=== PATIENT | male | born 1960 | race Caucasian/White ===

== ENCOUNTER 2019-05-22 16:09 | Inpatient (IN) | payer SELFPAY ==
[~2019-05-22] VITALS: Ht 185.4 cm; Wt 106.6 kg
[~2019-05-22 16:09] MED LIST: ASPI81TA59 PO; ATOR40TA59 PO; CLOP75TA PO; INSU100I27 SQ; METF500T16 PO
[2019-05-22] MEDS ORDERED: IV NORMAL SALINE 1000ML BAG 1,000 ML IV ONE (17:00)
[2019-05-22] MEDS ORDERED: VANCOMYCIN 1GM IVPB FOR OMNI 250 ML IV ONE (17:00)
[2019-05-22] MEDS ORDERED: ONDANSETRON PF 4 MG/2 ML VIAL. IV ONE (17:00)
--- NOTE | 2019-05-22 17:12 | PHYS DOC ---
Past Medical History Past Medical History: CAD, Diabetes-Type II Past Surgical History: Other Additional Past Surgical Histo: LEFT LEG SURGERY Alcohol Use: None Drug Use: None Adult General Chief Complaint Chief Complaint: diabetic leg HPI HPI Patient is a 59 year old male with history of diabetes mellitus who presents with complaining of left leg swelling and redness. Patient states he has had chronic left leg ulcer for several months that getting worse for the last 3-4 days and for the last 24 hours has large erythema and edema without fever and chills, pain, weakness. Patient states he had episode of nausea and vomiting started 4 days ago and felt better with Zofran given by his primary care physician with history of his nauseous. Patient denies chest pain, diarrhea and constipation, urinary symptom, shortness of breath. Review of Systems Review of Systems Constitutional: Denies fever or chills [] Eyes: Denies change in visual acuity, redness, or eye pain [] HENT: Denies nasal congestion or sore throat [] Respiratory: Denies cough or shortness of breath [] Cardiovascular: No additional information not addressed in HPI [] GI: Denies abdominal pain, bloody stools or diarrhea, reports nausea and vomiting [] : Denies dysuria or hematuria [] Musculoskeletal: Denies back pain or joint pain [] Integument: Denies rash , reports skin lesions [] Neurologic: Denies headache, focal weakness or sensory changes [] Endocrine: Denies polyuria or polydipsia [] All other systems were reviewed and found to be within normal limits, except as documented in this note. Allergies Allergies Allergies Coded Allergies Type Severity Reaction Last Updated Verified No Known Drug Allergies 05/03/16 No Physical Exam Physical Exam Constitutional: Well developed, well nourished, mild distress, non-toxic appearance. [] HENT: Normocephalic, atraumatic. Eyes: PERRLA, EOMI, conjunctiva normal, no discharge. [] Neck: Normal range of motion, no tenderness, supple, no stridor. [] Cardiovascular:Heart rate regular rhythm, no murmur [] Lungs & Thorax: Bilateral breath sounds clear to auscultation [] Abdomen: Bowel sounds normal, soft, no tenderness, no masses, no pulsatile masses. [] Skin: Warm, dry, no erythema, no rash. [] Back: No tenderness, no CVA tenderness. [] Extremities: Left lower extremity with 3+ edema from toes to mid leg and erythema with old ulcer in medial side of the great toe without abscess or drainage of pus. Neurologic: Alert and oriented X 3, no focal deficits noted. [] Psychologic: Affect normal, judgement normal, mood normal. [] Current Patient Data Vital Signs Vital Signs Date Time Temp Pulse Resp B/P (MAP) Pulse Ox O2 Delivery O2 Flow Rate FiO2 05/22/19 16:40 98.0 77 18 134/69 (90) 94 Room Air 98.0 EKG EKG [] Radiology/Procedures Radiology/Procedures [][facility] [address] [place] [address] IMAGING REPORT Signed PATIENT: JAKOB PIZANO AACCOUNT: [id number] : 1960 LOCATION: [address] [place] [address] AGE: 59 SEX: M EXAM STATUS: ADM IN ORD. PHYSICIAN: CECY GUO MD REASON: diabetes ULCER AND EDEMA PROCEDURE: VENOUS LOWER EXTREMITY LEFT STUDY: VENOUS LOWER EXTREMITY LEFT INDICATION: Diabetic ulcer. Lower extremity edema. TECHNIQUE: Color-flow and pulsed wave duplex ultrasound with compression of venous structures of the left lower extremity. COMPARISON: None Available. FINDINGS: Duplex ultrasound with compression of the deep venous structures of the left lower extremity from the common femoral vein through the popliteal vein is negative for DVT. The major calf veins are segmentally visualized and patent where seen. Normal venous waveforms and augmentation are noted throughout. Lower leg subcutaneous edema. Left groin lymph node which maintains a fatty hilum and is likely reactive. This node measures up to 1.3 cm in short axis dimension. IMPRESSION: 1. No left lower extremity deep venous thrombosis. 2. Lower leg subcutaneous edema. Electronically signed by: LILIAN GEORGE MD (05/22/2019 5:41 PM) [facility] DICTATED and SIGNED BY: LILIAN GEORGE MD DATE: 05/22/19 1745 Course & Med Decision Making Course & Med Decision Making Pertinent Labs and Imaging studies reviewed. (See chart for details) Patient requiring admission for further evaluation and treatment. Discussed with Dr. Jon who is in agreement with admission. Discussed findings and plan with patient and family, who acknowledge understanding and agreement. Dragon Disclaimer Dragon Disclaimer This electronic medical record was generated, in whole or in part, using a voice recognition dictation system. Departure Departure Impression: Primary Impression: Left leg cellulitis Additional Impressions: Diabetic foot ulcer Nausea and vomiting Uncontrolled diabetes mellitus Hypokalemia Disposition: 09 ADMITTED INPATIENT Admitting Physician: TORI (Dr Jon accepted admission at 1706) Condition: IMPROVED Referrals: UNKNOWN PCP NAME (PCP) Problem Qualifiers Additional Impressions: Diabetic foot ulcer Diabetic foot ulcer location: unspecified part of foot Diabetes mellitus t ype: type 2 Laterality: left Non-pressure ulcer stage: unspecified non- pressure ulcer stage Qualified Codes: E11.621 - Type 2 diabetes mellitus with foot ulcer; L97.529 - Non-pressure chronic ulcer of other part of left foot with unspecified severity Nausea and vomiting Vomiting type: unspecified Vomiting Intractability: non-intractable Qualified Codes: R11.2 - Nausea with vomiting, unspecified Uncontrolled diabetes mellitus Diabetes mellitus type: other specified (including LUIS) Glycemic state: with hyperglycemia Qualified Codes: E13.65 - Other specified diabetes mellitus with hyperglycemia CECY GUO MD May 22, 2019 17:12
[2019-05-22] MEDS ORDERED: VANCOMYCIN 2 GM in IV NORMAL SALINE 500ML BAG 500 ML IV ONE (17:15)
[2019-05-22 17:28] LABS: BASO # 0.1 x10^3/uL (0.0-0.2); BASO % 1 % (0-3); EOS # 0.3 x10^3/uL (0.0-0.7); EOS % 2 % (0-3); HEMATOCRIT 42.5 % (39.0-53.0); HEMOGLOBIN 15.3 g/dL (13.0-17.5); LYMPH # 2.5 x10^3/uL (1.0-4.8); LYMPH % 22 % (24-48); MEAN CORPUSCULAR HEMOGLOBIN 31 pg (25-35); MEAN CORPUSCULAR HGB CONC 36 g/dL (31-37); MEAN CORPUSCULAR VOLUME 86 fL (79-100); MONO # 1.5 x10^3/uL (0.0-1.1); MONO % 14 % (0-9); NEUT % 61 % (31-73); PLATELET COUNT 159 x10^3/uL (140-400); RED BLOOD COUNT 4.94 x10^6/uL (4.30-5.70); RED CELL DISTRIBUTION WIDTH 15.1 % (11.5-14.5); WHITE BLOOD COUNT 11.4 x10^3/uL (4.0-11.0)
[2019-05-22 17:35] LABS: CALCIUM 9.4 mg/dL (8.5-10.1); CREATININE 1.3 mg/dL (0.7-1.3); GFR 56.3; POTASSIUM 3.4 mmol/L (3.5-5.1)
[2019-05-22 17:40] LABS: ALBUMIN 3.4 g/dL (3.4-5.0); ALBUMIN/GLOBULIN RATIO 0.7 (1.0-1.7)
--- NOTE | 2019-05-22 17:43 | RAD ---
STUDY: VENOUS LOWER EXTREMITY LEFT INDICATION: Diabetic ulcer. Lower extremity edema. TECHNIQUE: Color-flow and pulsed wave duplex ultrasound with compression of venous structures of the left lower extremity. COMPARISON: None Available. FINDINGS: Duplex ultrasound with compression of the deep venous structures of the left lower extremity from the common femoral vein through the popliteal vein is negative for DVT. The major calf veins are segmentally visualized and patent where seen. Normal venous waveforms and augmentation are noted throughout. Lower leg subcutaneous edema. Left groin lymph node which maintains a fatty hilum and is likely reactive. This node measures up to 1.3 cm in short axis dimension. IMPRESSION: 1. No left lower extremity deep venous thrombosis. 2. Lower leg subcutaneous edema. Electronically signed by: LILIAN GEORGE MD (05/22/2019 5:41 PM) [facility]
[2019-05-22 19:22] LABS: BILIRUBIN,URINE NEGATIVE (NEG); CLARITY,URINE CLOUDY; COLOR,URINE YELLOW; NITRITE,URINE NEGATIVE (NEG); PROTEIN,URINE NEGATIVE (NEG-TRACE)
[2019-05-22 19:29] LABS: BACTERIA,URINE 0 /HPF (0-FEW); SQUAMOUS EPITHELIAL CELL,UR FEW /LPF; WBC,URINE RARE /HPF (0-4)
[2019-05-22 19:31] VITALS: BP 120/68
--- NOTE | 2019-05-22 19:31 | RAD ---
Study: FOOT LEFT 3V Indication: Diabetic ulcer. Comparison: None. Findings: Edematous soft tissues throughout the foot which is most notable along the great toe MTP joint. There appears to be shallow ulceration at the medial/plantar aspect of the great toe MTP joint. This would be better assessed clinically. No radiographic findings to suggest superimposed osteomyelitis. Multifocal degenerative changes to include hallux valgus alignment and prominent spurring at the plantar calcaneus. Mineralization in the region of the proximal plantar fascia as well as along the course of the distal Achilles tendon. Probable sequela of remote trauma at the medial malleolus. No acute fracture. Impression: Edematous changes of the soft tissues throughout the foot most notable along the great toe MTP joint where there appears to be a superimposed ulcer. No radiographic manifestations of osteomyelitis however radiographs aren't sensitive to this pathology. If there is ongoing concern, eventual MRI is recommended. Electronically signed by: LILIAN GEORGE MD (05/22/2019 7:28 PM) [facility]
[2019-05-22] MEDS ORDERED: DEXTROSE 50% 25 GM / 50ML DISP.SYRIN. IV PRN (19:45)
[2019-05-22] MEDS ORDERED: IV DEXTROSE 5% 250 ML BAG. IV PRN (19:45)
--- NOTE | 2019-05-22 20:02 | PDOC1 ---
History and Physical Date of Admission Date of Admission DATE: 05/22/19 TIME: 19:43 Identification/Chief Complaint Chief Complaint left foot ulcer Source Source: Patient History of Present Illness History of Present Illness Mr Echavarria is a 59yo M w/ PMHx HTN, CAD (s/p COLE to RCA in 2016), Diabetes-Type II, smoker who presents with complaining of left leg swelling and redness. Patient states he has had chronic left leg ulcer for several months that has been getting regular care at the [facility], but suddenly began getting worse for the last 3-4 days and for the last 24 hours has large erythema and edema with fever and chills, pain, weakness. Patient states he had episode of nausea and vomiting started 4 days ago and felt better with Zofran given by his primary care physician previously. Patient denies chest pain, diarrhea and constipation, urinary symptom, shortness of breath. He had venous doppler negative for DVT and Xray that does not show osteomyelitis, WBC elevated at 11.4. Cr 1.3, potassium 3.4. Past Medical History Cardiovascular: CAD, HTN, Hyperlipidemia Pulmonary: No pertinent hx GI: No pertinent hx Heme/Onc: No pertinent hx Hepatobiliary: No pertinent hx Psych: No pertinent hx Rheumatologic: No pertinent hx Infectious disease: No pertinent hx ENT: No pertinent hx Renal/: No pertinent hx Endocrine: Diabetes Dermatology: No pertinent hx Past Surgical History Past Surgical History: No pertinent history Family History Family History: Diabetes Social History Smoke: <1 pack per day ALCOHOL: none Drugs: None Current Problem List Problem List Problems Medical Problems: (1) Diabetic foot ulcer Status: Acute (2) Hypokalemia Status: Acute (3) Left leg cellulitis Status: Acute (4) Nausea and vomiting Status: Acute (5) Uncontrolled diabetes mellitus Status: Acute Current Medications Current Medications Current Medications Sodium Chloride 1,000 ml @ 1,000 mls/hr 1X ONCE IV Last administered on 05/22/19at 17:18; Start 05/22/19 at 17:00; Stop 05/22/19 at 17:59; Status DC Ondansetron HCl (Zofran) 4 mg 1X ONCE IV Last administered on 05/22/19at 17:18; Start 05/22/19 at 17:00; Stop 05/22/19 at 17:07; Status DC Cefazolin Sodium 50 ml @ 100 mls/hr 1X ONCE IV Last administered on 05/22/19at 17:57; Start 05/22/19 at 17:00; Stop 05/22/19 at 17:29; Status DC Vancomycin HCl 250 ml @ 250 mls/hr 1X ONCE IV ; Start 05/22/19 at 17:00; Stop 05/22/19 at 17:59; Status UNV Vancomycin HCl 2 gm/Sodium Chloride 500 ml @ 250 mls/hr 1X ONCE IV Last administered on 05/22/19at 18:32; Start 05/22/19 at 17:15; Stop 05/22/19 at 19:14; Status DC Active Scripts Active Metformin Hcl 500 Mg Tablet 500 Mg PO BIDWMEALS Levemir Flextouch (Insulin Detemir) 100 Unit/1 Ml Insuln.pen 15 Units SQ QHS Clopidogrel (Clopidogrel Bisulfate) 75 Mg Tablet 75 Mg PO DAILYWBKFT Children's Aspirin (Aspirin) 81 Mg Tab.chew 81 Mg PO DAILYWBKFT Atorvastatin Calcium 40 Mg Tablet 40 Mg PO QHS Allergies Allergies: Coded Allergies: No Known Drug Allergies (Unverified , 05/03/16) ROS General: YES: Chills, Night Sweats, Fatigue, Malaise PSYCHOLOGICAL ROS: No: Anxiety, Behavioral Disorder, Concentration difficultie, Decreased libido, Depression, Disorientation, Hallucinations, Hostility, Irritablity, Memory difficulties, Mood Swings, Obsessive thoughts, Physical abuse, Sexual abuse, Sleep disturbances, Suicidal ideation, Other Eyes: No Blurry vision, No Decreased vision, No Double vision, No Dry eyes, No Excessive tearing, No Eye Pain, No Itchy Eyes, No Loss of vision, No Photophobia, No Scotomata, No Uses contacts, No Uses glasses, No Other HEENT: No: Heacaches, Visual Changes, Hearing change, Nasal congestion, Nasal discharge, Oral lesions, Sinus pain, Sore Throat, Epistaxis, Sneezing, Snoring, Tinnitus, Vertigo, Vocal changes, Other ALLERGY AND IMMUNOLOGY: No: Hives, Insect Bite Sensitivity, Itchy/Watery Eyes, Nasal Congestion, Post Nasal Drip, Seasonal Allergies, Other Hematological and Lymphatic: No: Bleeding Problems, Blood Clots, Blood Transfusions, Brusing, Night Sweats, Pallor, Swollen Lymph Nodes, Other ENDOCRINE: No: Breast Changes, Galactorrhea, Hair Pattern Changes, Hot Flashes, Malaise/lethargy, Mood Swings, Palpitations, Polydipsia/polyuria, Skin Changes, Temperature Intolerance, Unexpected Weight Changes, Other Breast: No New/Changing Breast Lumps, No Nipple changes, No Nipple discharge, No Other Respiratory: No: Cough, Hemoptysis, Orthopnea, Pleuritic Pain, Shortness of breath, SOB with excertion, Sputum Changes, Stridor, Tachypnea, Wheezing, Other Cardiovascular: No Chest Pain, No Palpitations, No Orthopnea, No Paroxysmal Noc. Dyspnea, No Edema, No Lt Headedness, No Other Gastrointestinal: Yes Nausea, Yes Vomiting; No Abdominal Pain, No Diarrhea, No Constipation, No Melena, No Hematochezia, No Other Genitourinary: No Dysuria, No Frequency, No Incontinence, No Hematuria, No Retention, No Discharge, No Urgency, No Pain, No Flank Pain, No Other, No , No , No , No , No , No , No Musculoskeletal: Yes Joint Swelling; No Gait Disturbance, No Joint Pain, No Joint Stiffness, No Muscle Pain, No Muscular Weakness, No Pain In:, No Swelling In:, No Other Neurological: Yes Gait Disturbance; No Behavorial Changes, No Bowel/Bladder ControlChng, No Confusion, No Di zziness, No Headaches, No Impaired Coord/balance, No Memory Loss, No Numbness/Tingling, No Seizures, No Speech Problems, No Tremors, No Visual Changes, No Weakness, No Other Skin: Yes Skin Lesion Changes; No Dry Skin, No Eczema, No Hair Changes, No Lumps, No Mole Changes, No Mottling, No Nail Changes, No Pruritus, No Rash, No Other, No Acne Physical Exam General: Alert, Oriented X3, Cooperative, No acute distress HEENT: Atraumatic, PERRLA, EOMI, Mucous membr. moist/pink Lungs: Clear to auscultation, Normal air movement Heart: S1S2, RRR, no gallops, no murmurs Abdomen: Normal bowel sounds, Soft, No tenderness, No hepatosplenomegaly, No masses Rectal Exam: not examined Extremities: No clubbing, No cyanosis, Other (LLE edema and warm, red up to mid calf. Ulcer on plantar surfarce at 1st MTP joint 2cm and medial ulcer with small fluctuance 2x3cm with blistering) Skin: Other (As above) Vitals Vitals Vital Signs Date Time Temp Pulse Resp B/P (MAP) Pulse Ox O2 Delivery O2 Flow Rate FiO2 05/22/19 19:15 68 18 102/58 (73) 96 Room Air 05/22/19 16:40 98.0 98.0 Labs Labs Laboratory Tests Test 05/22/19 17:07 05/22/19 19:15 White Blood Count 11.4 x10^3/uL (4.0-11.0) Red Blood Count 4.94 x10^6/uL (4.30-5.70) Hemoglobin 15.3 g/dL (13.0-17.5) Hematocrit 42.5 % (39.0-53.0) Mean Corpuscular Volume 86 fL (79-100) Mean Corpuscular Hemoglobin 31 pg (25-35) Mean Corpuscular Hemoglobin Concent 36 g/dL (31-37) Red Cell Distribution Width 15.1 % (11.5-14.5) Platelet Count 159 x10^3/uL (140-400) Neutrophils (%) (Auto) 61 % (31-73) Lymphocytes (%) (Auto) 22 % (24-48) Monocytes (%) (Auto) 14 % (0-9) Eosinophils (%) (Auto) 2 % (0-3) Basophils (%) (Auto) 1 % (0-3) Neutrophils # (Auto) 7.0 x10^3/uL (1.8-7.7) Lymphocytes # (Auto) 2.5 x10^3/uL (1.0-4.8) Monocytes # (Auto) 1.5 x10^3/uL (0.0-1.1) Eosinophils # (Auto) 0.3 x10^3/uL (0.0-0.7) Basophils # (Auto) 0.1 x10^3/uL (0.0-0.2) Sodium Level 137 mmol/L (136-145) Potassium Level 3.4 mmol/L (3.5-5.1) Chloride Level 99 mmol/L (98-107) Carbon Dioxide Level 27 mmol/L (21-32) Anion Gap 11 (6-14) Blood Urea Nitrogen 26 mg/dL (8-26) Creatinine 1.3 mg/dL (0.7-1.3) Estimated GFR (Cockcroft-Gault) 56.3 BUN/Creatinine Ratio 20 (6-20) Glucose Level 240 mg/dL (70-99) Lactic Acid Level 1.7 mmol/L (0.4-2.0) Calcium Level 9.4 mg/dL (8.5-10.1) Total Bilirubin 1.0 mg/dL (0.2-1.0) Aspartate Amino Transf (AST/SGOT) 30 U/L (15-37) Alanine Aminotransferase (ALT/SGPT) 30 U/L (16-63) Alkaline Phosphatase 86 U/L (46-116) Troponin I Quantitative < 0.017 ng/mL (0.000-0.055) Total Protein 8.0 g/dL (6.4-8.2) Albumin 3.4 g/dL (3.4-5.0) Albumin/Globulin Ratio 0.7 (1.0-1.7) Lipase 57 U/L (73-393) Urine Collection Type Unknown Urine Color Yellow Urine Clarity Cloudy Urine pH 6.0 Urine Specific [place] >=1.030 Urine Protein Negative mg/dL (NEG-TRACE) Urine Glucose (UA) >=1000 mg/dL (NEG) Urine Ketones (Stick) Negative mg/dL (NEG) Urine Blood Trace (NEG) Urine Nitrite Negative (NEG) Urine Bilirubin Negative (NEG) Urine Urobilinogen Dipstick 1.0 mg/dL (0.2 mg/dL) Urine Leukocyte Esterase Negative (NEG) Urine RBC 3-5 /HPF (0-2) Urine WBC Rare /HPF (0-4) Urine Squamous Epithelial Cells Few /LPF Urine Bacteria 0 /HPF (0-FEW) Laboratory Tests Test 05/22/19 17:07 05/22/19 19:15 White Blood Count 11.4 x10^3/uL (4.0-11.0) Red Blood Count 4.94 x10^6/uL (4.30-5.70) Hemoglobin 15.3 g/dL (13.0-17.5) Hematocrit 42.5 % (39.0-53.0) Mean Corpuscular Volume 86 fL (79-100) Mean Corpuscular Hemoglobin 31 pg (25-35) Mean Corpuscular Hemoglobin Concent 36 g/dL (31-37) Red Cell Distribution Width 15.1 % (11.5-14.5) Platelet Count 159 x10^3/uL (140-400) Neutrophils (%) (Auto) 61 % (31-73) Lymphocytes (%) (Auto) 22 % (24-48) Monocytes (%) (Auto) 14 % (0-9) Eosinophils (%) (Auto) 2 % (0-3) Basophils (%) (Auto) 1 % (0-3) Neutrophils # (Auto) 7.0 x10^3/uL (1.8-7.7) Lymphocytes # (Auto) 2.5 x10^3/uL (1.0-4.8) Monocytes # (Auto) 1.5 x10^3/uL (0.0-1.1) Eosinophils # (Auto) 0.3 x10^3/uL (0.0-0.7) Basophils # (Auto) 0.1 x10^3/uL (0.0-0.2) Sodium Level 137 mmol/L (136-145) Potassium Level 3.4 mmol/L (3.5-5.1) Chloride Level 99 mmol/L (98-107) Carbon Dioxide Level 27 mmol/L (21-32) Anion Gap 11 (6-14) Blood Urea Nitrogen 26 mg/dL (8-26) Creatinine 1.3 mg/dL (0.7-1.3) Estimated GFR (Cockcroft-Gault) 56.3 BUN/Creatinine Ratio 20 (6-20) Glucose Level 240 mg/dL (70-99) Lactic Acid Level 1.7 mmol/L (0.4-2.0) Calcium Level 9.4 mg/dL (8.5-10.1) Total Bilirubin 1.0 mg/dL (0.2-1.0) Aspartate Amino Transf (AST/SGOT) 30 U/L (15-37) Alanine Aminotransferase (ALT/SGPT) 30 U/L (16-63) Alkaline Phosphatase 86 U/L (46-116) Troponin I Quantitative < 0.017 ng/mL (0.000-0.055) Total Protein 8.0 g/dL (6.4-8.2) Albumin 3.4 g/dL (3.4-5.0) Albumin/Globulin Ratio 0.7 (1.0-1.7) Lipase 57 U/L (73-393) Urine Collection Type Unknown Urine Color Yellow Urine Clarity Cloudy Urine pH 6.0 Urine Specific [place] >=1.030 Urine Protein Negative mg/dL (NEG-TRACE) Urine Glucose (UA) >=1000 mg/dL (NEG) Urine Ketones (Stick) Negative mg/dL (NEG) Urine Blood Trace (NEG) Urine Nitrite Negative (NEG) Urine Bilirubin Negative (NEG) Urine Urobilinogen Dipstick 1.0 mg/dL (0.2 mg/dL) Urine Leukocyte Esterase Negative (NEG) Urine RBC 3-5 /HPF (0-2) Urine WBC Rare /HPF (0-4) Urine Squamous Epithelial Cells Few /LPF Urine Bacteria 0 /HPF (0-FEW) Images Images Left foot XR - Edematous changes of the soft tissues throughout the foot most notable along the great toe MTP joint where there appears to be a superimposed ulcer. No radiographic manifestations of osteomyelitis however radiographs aren't sensitive to this pathology. If there is ongoing concern, eventual MRI is recommended. LLE Venous doppler - no DVT, 1.3 cm lymph node VTE Prophylaxis Ordered VTE Prophylaxis Devices: Yes VTE Pharmacological Prophylaxi: Yes Assessment/Plan Assessment/Plan A/P: LLE cellulitis and abscess - small abscess, negative for osteomyelitis. Will obtain blood cultures, cont empiric vancomycin and cefazolin. Elevate extremity. Tylenol for fever. Will check arterial flow Left great toe diabetic ulcer - x2, will have wound care to see,. antibiotics as above Hypokalemia - will replace, check mag JERI - likely vasomotor from vomiting episodes, will give IVF hydration HTN - will monitor BP CAD (s/p COLE to RCA in 2016) - stable. Has been on ASA Diabetes-Type II - on metformin, will place on sliding scale basal bolus plus regimen in house Smoker - counseled on cessation FEN - ADA diet PPX - Lovenox FULL CODE Inpatient for cellulitis and abscess with diabetic foot. JAKOB ROJAS MD May 22, 2019 20:02
[2019-05-22] MEDS ORDERED: METF10007 PO (20:04)
[2019-05-22] MEDS ORDERED: INSU100I13 SQ (20:06)
[2019-05-22] MEDS ORDERED: FURO40TA4 PO (20:12)
[2019-05-22] MEDS ORDERED: GABA600T7 PO (20:12)
[2019-05-22] MEDS ORDERED: TADA5TAB PO (20:12)
[2019-05-22] MEDS ORDERED: EMPA10TA PO (20:12)
[2019-05-22] MEDS ORDERED: ONDA4TAB7 PO (20:12)
[2019-05-22] MEDS ORDERED: FAMO20TA5 PO (20:12)
[2019-05-22] MEDS ORDERED: INSULIN GLARGINE SYRINGE. SQ SCH (21:00)
[2019-05-22] MEDS: INSULIN LISPRO 300 UNITS/3 ML VIAL. SQ SCH (21:00)
[2019-05-22] MEDS: VANCOMYCIN PER PHARMACY MC PRN ×2 (21:26→21:29)
--- NOTE | 2019-05-22 21:30 | NUR ---
Pharmacy Vancomycin Dosing Note S:Consulted to monitor and dose vancomycin started 05/22/19. O:JAKOB PIZANO is a 59 year old M with DIABETIC FOOT ULCER . Height: 6 feet, 0 inches Weight: 107.162934 kg [place] Body Weight: 77.60 Adjusted Body Weight: 89.36 Dosing Weight: Actual Other Antibiotics: ANCEF LABS: Last BUN: 26 Last Creatinine: 1.3 Creatinine Clearance: 76 mL/min Last WBC: 11.4 Last Procalcitonin: Tmax (past 24 hours): Microbiology: I/O: Drug Levels: Last level: on at Last dose given at Vancomycin Dosing: Loading Dose: 2000 mg x1 Dosing Weight: Actual Target Trough: 15-20 A: Based on: HT, WT AND RENAL FXN P: 1. Begin Vancomycin 1750 mg IV q18h 2. Follow up Trough level on 05/24/19 at 0630 3. Pharmacy will continue to monitor, follow and adjust therapy as needed. JAMAL RODRIGUEZ, [facility], 05/22/19 0373
[2019-05-22] MEDS: ENOXAPARIN 40 MG/0.4 ML SYRINGE. SQ SCH (21:41)
[2019-05-22] MEDS: ATORVASTATIN CALCIUM 40 MG TABLET. PO SCH (21:42)
[2019-05-22] MEDS: INSULIN GLARGINE SYRINGE. SQ SCH (21:46)
[2019-05-22] MEDS ORDERED: ceFAZolin SODIUM 1 GM in IV DEXTROSE 5% 50 ML IV SCH (22:00)
[2019-05-22 23:00] VITALS: BP 122/62
[2019-05-22] MEDS ORDERED: MORPHINE SULFATE 2 MG/ML VIAL. IV PRN (23:00)
[2019-05-23] MEDS: ceFAZolin SODIUM IV Push 1 GM VIAL. IVP SCH ×4 (00:45→21:29)
[2019-05-23] MEDS: traMADol 50 MG TABLET PO PRN ×2 (02:38→21:48)
[2019-05-23 03:00] VITALS: BP 116/67
[2019-05-23 07:00] VITALS: BP 97/58
[2019-05-23 07:13] LABS: BASO # 0.1 x10^3/uL (0.0-0.2); BASO % 1 % (0-3); EOS # 0.2 x10^3/uL (0.0-0.7); EOS % 2 % (0-3); HEMATOCRIT 39.4 % (39.0-53.0); HEMOGLOBIN 13.9 g/dL (13.0-17.5); LYMPH # 2.6 x10^3/uL (1.0-4.8); LYMPH % 27 % (24-48); MEAN CORPUSCULAR HEMOGLOBIN 31 pg (25-35); MEAN CORPUSCULAR HGB CONC 35 g/dL (31-37); MEAN CORPUSCULAR VOLUME 87 fL (79-100); MONO # 1.3 x10^3/uL (0.0-1.1); MONO % 13 % (0-9); NEUT # 5.7 x10^3/uL (1.8-7.7); NEUT % 58 % (31-73); PLATELET COUNT 154 x10^3/uL (140-400); RED BLOOD COUNT 4.54 x10^6/uL (4.30-5.70); RED CELL DISTRIBUTION WIDTH 14.9 % (11.5-14.5); WHITE BLOOD COUNT 9.8 x10^3/uL (4.0-11.0)
[2019-05-23] MEDS: INSULIN LISPRO 300 UNITS/3 ML VIAL. SQ SCH ×4 (07:30→21:00)
[2019-05-23 07:31] LABS: CALCIUM 8.6 mg/dL (8.5-10.1); CREATININE 0.9 mg/dL (0.7-1.3); GFR 86.1; POTASSIUM 3.2 mmol/L (3.5-5.1)
--- NOTE | 2019-05-23 10:34 | PDOC ---
PROGRESS NOTES History of Present Illness History of Present Illness Assessment/Plan Assessment/Plan A/P: LLE cellulitis and abscess - small abscess, negative for osteomyelitis. Will obtain blood cultures, cont empiric vancomycin and cefazolin. Elevate extremity. Tylenol for fever. Will check arterial flow Left great toe diabetic ulcer - x2, will have wound care to see,. antibiotics as above Hypokalemia - will replace, check mag JERI - likely vasomotor from vomiting episodes, will give IVF hydration HTN - will monitor BP CAD (s/p COLE to RCA in 2016) - stable. Has been on ASA Diabetes-Type II - on metformin, will place on sliding scale basal bolus plus regimen in house Smoker - counseled on cessation hypokalemia FEN - ADA diet PPX - Lovenox FULL CODE Inpatient for cellulitis and abscess with diabetic foot. Edematous changes of the soft tissues throughout the foot most notable along the great toe MTP joint where there appears to be a superimposed ulcer. No radiographic manifestations of osteomyelitis however radiographs aren't sensitive to this pathology. If there is ongoing concern, eventual MRI is recommended. 38 min pt exam, chart review, > 50% of time spent with exam, chart review, pt care coordination Vitals Vitals Vital Signs Date Time Temp Pulse Resp B/P (MAP) Pulse Ox O2 Delivery O2 Flow Rate FiO2 05/23/19 07:15 Room Air 05/23/19 07:00 98.4 63 18 97/58 (71) 94 98.4 Physical Exam General: Alert, Oriented X3, Cooperative, No acute distress Heart: Regular rate Lungs: Clear Abdomen: Normal bowel sounds, Soft, No tenderness, No hepatosplenomegaly, No masses Extremities: No clubbing, No cyanosis, Other (LLE edema and warm, red up to mid calf. Ulcer on plantar surfarce at 1st MTP joint 2cm and medial ulcer with small fluctuance 2x3cm with blistering) Skin: Other (As above) Labs LABS Examination: Ultrasound left lower extremity arterial duplex HISTORY: History of diabetic foot ulcer COMPARISON: None available Technique: Grayscale, color Doppler 2-D, spectral waveform analysis of the left lower extremity arterial system were performed FINDINGS: The common femoral artery measures 106 cm/s Deep femoral artery 75 cm/s. Proximal SFA 116 cm/s. Mid SFA 117 cm/s. Distal SFA 88 cm/s. Popliteal artery 123 cm/s. Proximal [employer] 100 cm/s. Distal [employer] 109 cm/s. Peroneal artery 92 cm/s. The anterior tibialis artery is not well-visualized. The velocity in the dorsalis pedis artery measures 140 cm/s. Mild atherosclerotic plaque identified in the left common femoral artery. 3.6 cm lymph node identified in the left groin. IMPRESSION: 1. No evidence of hemodynamically significant stenosis. 2. Mild increased velocity identified in the calf arteries, nonspecific. Electronically signed by: Adria Tony MD (05/23/2019 5:50 PM) [place] [id number] Study: FOOT LEFT 3V Indication: Diabetic ulcer. Comparison: None. Findings: Edematous soft tissues throughout the foot which is most notable along the great toe MTP joint. There appears to be shallow ulceration at the medial/plantar aspect of the great toe MTP joint. This would be better assessed clinically. No radiographic findings to suggest superimposed osteomyelitis. Multifocal degenerative changes to include hallux valgus alignment and prominent spurring at the plantar calcaneus. Mineralization in the region of the proximal plantar fascia as well as along the course of the distal Achilles tendon. Probable sequela of remote trauma at the medial malleolus. No acute fracture. Impression: Edematous changes of the soft tissues throughout the foot most notable along the great toe MTP joint where there appears to be a superimposed ulcer. No radiographic manifestations of osteomyelitis however radiographs aren't sensitive to this pathology. If there is ongoing concern, eventual MRI is recommended. Electronically signed by: LILIAN GEORGE MD (05/22/2019 7:28 PM) [facility] Laboratory Tests Test 05/22/19 17:07 05/22/19 19:15 05/22/19 20:21 05/23/19 05:40 White Blood Count 11.4 x10^3/uL (4.0-11.0) 9.8 x10^3/uL (4.0-11.0) Red Blood Count 4.94 x10^6/uL (4.30-5.70) 4.54 x10^6/uL (4.30-5.70) Hemoglobin 15.3 g/dL (13.0-17.5) 13.9 g/dL (13.0-17.5) Hematocrit 42.5 % (39.0-53.0) 39.4 % (39.0-53.0) Mean Corpuscular Volume 86 fL (79-100) 87 fL (79-100) Mean Corpuscular Hemoglobin 31 pg (25-35) 31 pg (25-35) Mean Corpuscular Hemoglobin Concent 36 g/dL (31-37) 35 g/dL (31-37) Red Cell Distribution Width 15.1 % (11.5-14.5) 14.9 % (11.5-14.5) Platelet Count 159 x10^3/uL (140-400) 154 x10^3/uL (140-400) Neutrophils (%) (Auto) 61 % (31-73) 58 % (31-73) Lymphocytes (%) (Auto) 22 % (24-48) 27 % (24-48) Monocytes (%) (Auto) 14 % (0-9) 13 % (0-9) Eosinophils (%) (Auto) 2 % (0-3) 2 % (0-3) Basophils (%) (Auto) 1 % (0-3) 1 % (0-3) Neutrophils # (Auto) 7.0 x10^3/uL (1.8-7.7) 5.7 x10^3/uL (1.8-7.7) Lymphocytes # (Auto) 2.5 x10^3/uL (1.0-4.8) 2.6 x10^3/uL (1.0-4.8) Monocytes # (Auto) 1.5 x10^3/uL (0.0-1.1) 1.3 x10^3/uL (0.0-1.1) Eosinophils # (Auto) 0.3 x10^3/uL (0.0-0.7) 0.2 x10^3/uL (0.0-0.7) Basophils # (Auto) 0.1 x10^3/uL (0.0-0.2) 0.1 x10^3/uL (0.0-0.2) Sodium Level 137 mmol/L (136-145) 142 mmol/L (136-145) Potassium Level 3.4 mmol/L (3.5-5.1) 3.2 mmol/L (3.5-5.1) Chloride Level 99 mmol/L (98-107) 105 mmol/L (98-107) Carbon Dioxide Level 27 mmol/L (21-32) 29 mmol/L (21-32) Anion Gap 11 (6-14) 8 (6-14) Blood Urea Nitrogen 26 mg/dL (8-26) 19 mg/dL (8-26) Creatinine 1.3 mg/dL (0.7-1.3) 0.9 mg/dL (0.7-1.3) Estimated GFR (Cockcroft-Gault) 56.3 86.1 BUN/Creatinine Ratio 20 (6-20) Glucose Level 240 mg/dL (70-99) 84 mg/dL (70-99) Lactic Acid Level 1.7 mmol/L (0.4-2.0) Calcium Level 9.4 mg/dL (8.5-10.1) 8.6 mg/dL (8.5-10.1) Total Bilirubin 1.0 mg/dL (0.2-1.0) Aspartate Amino Transf (AST/SGOT) 30 U/L (15-37) Alanine Aminotransferase (ALT/SGPT) 30 U/L (16-63) Alkaline Phosphatase 86 U/L (46-116) Troponin I Quantitative < 0.017 ng/mL (0.000-0.055) Total Protein 8.0 g/dL (6.4-8.2) Albumin 3.4 g/dL (3.4-5.0) Albumin/Globulin Ratio 0.7 (1.0-1.7) Lipase 57 U/L (73-393) Urine Collection Type Unknown Urine Color Yellow Urine Clarity Cloudy Urine pH 6.0 Urine Specific [place] >=1.030 Urine Protein Negative mg/dL (NEG-TRACE) Urine Glucose (UA) >=1000 mg/dL (NEG) Urine Ketones (Stick) Negative mg/dL (NEG) Urine Blood Trace (NEG) Urine Nitrite Negative (NEG) Urine Bilirubin Negative (NEG) Urine Urobilinogen Dipstick 1.0 mg/dL (0.2 mg/dL) Urine Leukocyte Esterase Negative (NEG) Urine RBC 3-5 /HPF (0-2) Urine WBC Rare /HPF (0-4) Urine Squamous Epithelial Cells Few /LPF Urine Bacteria 0 /HPF (0-FEW) Glucose (Fingerstick) 154 mg/dL (70-99) Test 05/23/19 07:31 Glucose (Fingerstick) 101 mg/dL (70-99) Assessment and Plan Assessmemt and Plan Problems Medical Problems: (1) Diabetic foot ulcer Status: Acute (2) Hypokalemia Status: Acute (3) Left leg cellulitis Status: Acute (4) Nausea and vomiting Status: Acute (5) Uncontrolled diabetes mellitus Status: Acute Comment Review of Relevant I have reviewed the following items bhanu (where applicable) has been applied. Labs Laboratory Tests Test 05/22/19 17:07 05/22/19 19:15 05/22/19 20:21 05/23/19 05:40 White Blood Count 11.4 x10^3/uL (4.0-11.0) 9.8 x10^3/uL (4.0-11.0) Red Blood Count 4.94 x10^6/uL (4.30-5.70) 4.54 x10^6/uL (4.30-5.70) Hemoglobin 15.3 g/dL (13.0-17.5) 13.9 g/dL (13.0-17.5) Hematocrit 42.5 % (39.0-53.0) 39.4 % (39.0-53.0) Mean Corpuscular Volume 86 fL (79-100) 87 fL (79-100) Mean Corpuscular Hemoglobin 31 pg (25-35) 31 pg (25-35) Mean Corpuscular Hemoglobin Concent 36 g/dL (31-37) 35 g/dL (31-37) Red Cell Distribution Width 15.1 % (11.5-14.5) 14.9 % (11.5-14.5) Platelet Count 159 x10^3/uL (140-400) 154 x10^3/uL (140-400) Neutrophils (%) (Auto) 61 % (31-73) 58 % (31-73) Lymphocytes (%) (Auto) 22 % (24-48) 27 % (24-48) Monocytes (%) (Auto) 14 % (0-9) 13 % (0-9) Eosinophils (%) (Auto) 2 % (0-3) 2 % (0-3) Basophils (%) (Auto) 1 % (0-3) 1 % (0-3) Neutrophils # (Auto) 7.0 x10^3/uL (1.8-7.7) 5.7 x10^3/uL (1.8-7.7) Lymphocytes # (Auto) 2.5 x10^3/uL (1.0-4.8) 2.6 x10^3/uL (1.0-4.8) Monocytes # (Auto) 1.5 x10^3/uL (0.0-1.1) 1.3 x10^3/uL (0.0-1.1) Eosinophils # (Auto) 0.3 x10^3/uL (0.0-0.7) 0.2 x10^3/uL (0.0-0.7) Basophils # (Auto) 0.1 x10^3/uL (0.0-0.2) 0.1 x10^3/uL (0.0-0.2) Sodium Level 137 mmol/L (136-145) 142 mmol/L (136-145) Potassium Level 3.4 mmol/L (3.5-5.1) 3.2 mmol/L (3.5-5.1) Chloride Level 99 mmol/L (98-107) 105 mmol/L (98-107) Carbon Dioxide Level 27 mmol/L (21-32) 29 mmol/L (21-32) Anion Gap 11 (6-14) 8 (6-14) Blood Urea Nitrogen 26 mg/dL (8-26) 19 mg/dL (8-26) Creatinine 1.3 mg/dL (0.7-1.3) 0.9 mg/dL (0.7-1.3) Estimated GFR (Cockcroft-Gault) 56.3 86.1 BUN/Creatinine Ratio 20 (6-20) Glucose Level 240 mg/dL (70-99) 84 mg/dL (70-99) Lactic Acid Level 1.7 mmol/L (0.4-2.0) Calcium Level 9.4 mg/dL (8.5-10.1) 8.6 mg/dL (8.5-10.1) Total Bilirubin 1.0 mg/dL (0.2-1.0) Aspartate Amino Transf (AST/SGOT) 30 U/L (15-37) Alanine Aminotransferase (ALT/SGPT) 30 U/L (16-63) Alkaline Phosphatase 86 U/L (46-116) Troponin I Quantitative < 0.017 ng/mL (0.000-0.055) Total Protein 8.0 g/dL (6.4-8.2) Albumin 3.4 g/dL (3.4-5.0) Albumin/Globulin Ratio 0.7 (1.0-1.7) Lipase 57 U/L (73-393) Urine Collection Type Unknown Urine Color Yellow Urine Clarity Cloudy Urine pH 6.0 Urine Specific [place] >=1.030 Urine Protein Negative mg/dL (NEG-TRACE) Urine Glucose (UA) >=1000 mg/dL (NEG) Urine Ketones (Stick) Negative mg/dL (NEG) Urine Blood Trace (NEG) Urine Nitrite Negative (NEG) Urine Bilirubin Negative (NEG) Urine Urobilinogen Dipstick 1.0 mg/dL (0.2 mg/dL) Urine Leukocyte Esterase Negative (NEG) Urine RBC 3-5 /HPF (0-2) Urine WBC Rare /HPF (0-4) Urine Squamous Epithelial Cells Few /LPF Urine Bacteria 0 /HPF (0-FEW) Glucose (Fingerstick) 154 mg/dL (70-99) Test 05/23/19 07:31 Glucose (Fingerstick) 101 mg/dL (70-99) Laboratory Tests Test 05/22/19 17:07 05/22/19 19:15 05/22/19 20:21 05/23/19 05:40 White Blood Count 11.4 x10^3/uL (4.0-11.0) 9.8 x10^3/uL (4.0-11.0) Red Blood Count 4.94 x10^6/uL (4.30-5.70) 4.54 x10^6/uL (4.30-5.70) Hemoglobin 15.3 g/dL (13.0-17.5) 13.9 g/dL (13.0-17.5) Hematocrit 42.5 % (39.0-53.0) 39.4 % (39.0-53.0) Mean Corpuscular Volume 86 fL (79-100) 87 fL (79-100) Mean Corpuscular Hemoglobin 31 pg (25-35) 31 pg (25-35) Mean Corpuscular Hemoglobin Concent 36 g/dL (31-37) 35 g/dL (31-37) Red Cell Distribution Width 15.1 % (11.5-14.5) 14.9 % (11.5-14.5) Platelet Count 159 x10^3/uL (140-400) 154 x10^3/uL (140-400) Neutrophils (%) (Auto) 61 % (31-73) 58 % (31-73) Lymphocytes (%) (Auto) 22 % (24-48) 27 % (24-48) Monocytes (%) (Auto) 14 % (0-9) 13 % (0-9) Eosinophils (%) (Auto) 2 % (0-3) 2 % (0-3) Basophils (%) (Auto) 1 % (0-3) 1 % (0-3) Neutrophils # (Auto) 7.0 x10^3/uL (1.8-7.7) 5.7 x10^3/uL (1.8-7.7) Lymphocytes # (Auto) 2.5 x10^3/uL (1.0-4.8) 2.6 x10^3/uL (1.0-4.8) Monocytes # (Auto) 1.5 x10^3/uL (0.0-1.1) 1.3 x10^3/uL (0.0-1.1) Eosinophils # (Auto) 0.3 x10^3/uL (0.0-0.7) 0.2 x10^3/uL (0.0-0.7) Basophils # (Auto) 0.1 x10^3/uL (0.0-0.2) 0.1 x10^3/uL (0.0-0.2) Sodium Level 137 mmol/L (136-145) 142 mmol/L (136-145) Potassium Level 3.4 mmol/L (3.5-5.1) 3.2 mmol/L (3.5-5.1) Chloride Level 99 mmol/L (98-107) 105 mmol/L (98-107) Carbon Dioxide Level 27 mmol/L (21-32) 29 mmol/L (21-32) Anion Gap 11 (6-14) 8 (6-14) Blood Urea Nitrogen 26 mg/dL (8-26) 19 mg/dL (8-26) Creatinine 1.3 mg/dL (0.7-1.3) 0.9 mg/dL (0.7-1.3) Estimated GFR (Cockcroft-Gault) 56.3 86.1 BUN/Creatinine Ratio 20 (6-20) Glucose Level 240 mg/dL (70-99) 84 mg/dL (70-99) Lactic Acid Level 1.7 mmol/L (0.4-2.0) Calcium Level 9.4 mg/dL (8.5-10.1) 8.6 mg/dL (8.5-10.1) Total Bilirubin 1.0 mg/dL (0.2-1.0) Aspartate Amino Transf (AST/SGOT) 30 U/L (15-37) Alanine Aminotransferase (ALT/SGPT) 30 U/L (16-63) Alkaline Phosphatase 86 U/L (46-116) Troponin I Quantitative < 0.017 ng/mL (0.000-0.055) Total Protein 8.0 g/dL (6.4-8.2) Albumin 3.4 g/dL (3.4-5.0) Albumin/Globulin Ratio 0.7 (1.0-1.7) Lipase 57 U/L (73-393) Urine Collection Type Unknown Urine Color Yellow Urine Clarity Cloudy Urine pH 6.0 Urine Specific [place] >=1.030 Urine Protein Negative mg/dL (NEG-TRACE) Urine Glucose (UA) >=1000 mg/dL (NEG) Urine Ketones (Stick) Negative mg/dL (NEG) Urine Blood Trace (NEG) Urine Nitrite Negative (NEG) Urine Bilirubin Negative (NEG) Urine Urobilinogen Dipstick 1.0 mg/dL (0.2 mg/dL) Urine Leukocyte Esterase Negative (NEG) Urine RBC 3-5 /HPF (0-2) Urine WBC Rare /HPF (0-4) Urine Squamous Epithelial Cells Few /LPF Urine Bacteria 0 /HPF (0-FEW) Glucose (Fingerstick) 154 mg/dL (70-99) Test 05/23/19 07:31 Glucose (Fingerstick) 101 mg/dL (70-99) Medications Current Medications Sodium Chloride 1,000 ml @ 1,000 mls/hr 1X ONCE IV Last administered on 05/22/19at 17:18; Start 05/22/19 at 17:00; Stop 05/22/19 at 17:59; Status DC Ondansetron HCl (Zofran) 4 mg 1X ONCE IV Last administered on 05/22/19at 17:18; Start 05/22/19 at 17:00; Stop 05/22/19 at 17:07; Status DC Cefazolin Sodium 50 ml @ 100 mls/hr 1X ONCE IV Last administered on 05/22/19at 17:57; Start 05/22/19 at 17:00; Stop 05/22/19 at 17:29; Status DC Vancomycin HCl 250 ml @ 250 mls/hr 1X ONCE IV ; Start 05/22/19 at 17:00; Stop 05/22/19 at 17:59; Status UNV Vancomycin HCl 2 gm/Sodium Chloride 500 ml @ 250 mls/hr 1X ONCE IV Last administered on 05/22/19at 18:32; Start 05/22/19 at 17:15; Stop 05/22/19 at 19:14; Status DC Insulin Human Lispro (HumaLOG) 0-7 UNITS TIDACHC SQ ; Start 05/22/19 at 21:00 Dextrose (Dextrose 50%-Water Syringe) 12.5 gm PRN Q15MIN PRN IV SEE COMMENTS; Start 05/22/19 at 19:45 Dextrose 250 ml PRN Q15MIN PRN IV SEE COMMENTS; Start 05/22/19 at 19:45 Atorvastatin Calcium (Lipitor) 40 mg QHS PO Last administered on 05/22/19at 21:46; Start 05/22/19 at 21:00 Insulin Glargine (Lantus Syringe) 15 unit QHS SQ ; Start 05/22/19 at 21:00; Stop 05/22/19 at 21:16; Status DC Cefazolin Sodium 1 gm/Dextrose 50 ml @ 100 mls/hr Q8HRS IV ; Start 05/22/19 at 22:00; Stop 05/22/19 at 21:12; Status DC Vancomycin HCl (Vanco Per Pharmacy) 1 each PRN DAILY PRN MC SEE COMMENTS Last administered on 05/22/19at 21:29; Start 05/22/19 at 19:45 Enoxaparin Sodium (Lovenox 40mg Syringe) 40 mg Q24H SQ Last administered on 05/22/19at 21:46; Start 05/22/19 at 21:00 Insulin Glargine (Lantus Syringe) 45 unit QHS SQ Last administered on 05/22/19at 21:46; Start 05/22/19 at 21:00 Cefazolin Sodium (Ancef) 1 gm Q8HRS IVP Last administered on 05/23/19at 06:17; Start 05/22/19 at 22:00 Vancomycin HCl (Vancomycin Trough Level) 1 each 1X ONCE MC ; Start 05/24/19 at 06:30; Stop 05/24/19 at 06:31 Vancomycin HCl 1.75 gm/Sodium Chloride 500 ml @ 250 mls/hr Q18H IV ; Start 05/23/19 at 13:00 Tramadol HCl (Ultram) 50 mg PRN Q6HRS PRN PO PAIN Last administered on 05/23/19at 02:38; Start 05/22/19 at 23:00 Morphine Sulfate (Morphine Sulfate) 2 mg PRN Q4HRS PRN IV PAIN; Start 05/22/19 at 23:00 Active Scripts Active Clopidogrel (Clopidogrel Bisulfate) 75 Mg Tablet 75 Mg PO DAILYWBKFT Children's Aspirin (Aspirin) 81 Mg Tab.chew 81 Mg PO DAILYWBKFT Atorvastatin Calcium 40 Mg Tablet 40 Mg PO QHS Reported Zofran (Ondansetron Hcl) 4 Mg Tablet 1 Tab PO Q6HRS Jardiance (Empagliflozin) 10 Mg Tablet 10 Mg PO DAILY PRN Gabapentin 600 Mg Tablet 300 Mg PO HS Famotidine 20 Mg Tablet 20 Mg PO BID Furosemide 40 Mg Tablet 1 Tab PO DAILY Cialis (Tadalafil) 5 Mg Tablet 2.5 Mg PO DAILY Lantus Solostar (Insulin Glargine,Hum.rec.anlog) 100 Unit/1 Ml Insuln.pen 45 Unit SQ QHS Metformin Hcl 1,000 Mg Tablet 1,000 Mg PO BIDWMEALS Vitals/I & O Vital Sign - Last 24 Hours 05/22/19 05/22/19 05/22/19 05/22/19 16:40 17:20 17:54 18:20 Temp 98.0 98.0 Pulse 77 71 69 68 Resp 18 18 18 20 B/P (MAP) 134/69 (90) 114/65 (81) 102/66 (78) 110/64 (79) Pulse Ox 94 95 96 96 O2 Delivery Room Air Room Air Room Air Room Air 05/22/19 05/22/19 05/22/19 05/22/19 18:50 19:15 19:31 20:00 Temp 97.4 97.4 Pulse 67 68 71 Resp 18 18 18 B/P (MAP) 115/63 (80) 102/58 (73) 120/68 (85) Pulse Ox 95 96 97 O2 Delivery Room Air Room Air Room Air Room Air 05/22/19 05/23/19 05/23/19 05/23/19 23:00 02:38 03:00 03:58 Temp 98.0 97.5 98.0 97.5 Pulse 72 46 Resp 18 20 18 20 B/P (MAP) 122/62 (82) 116/67 (83) Pulse Ox 93 93 95 95 O2 Delivery Room Air Room Air Room Air Room Air 05/23/19 05/23/19 07:00 07:15 Temp 98.4 98.4 Pulse 63 Resp 18 B/P (MAP) 97/58 (71) Pulse Ox 94 O2 Delivery Room Air Room Air Intake and Output 05/22/19 05/22/19 05/23/19 15:00 23:00 07:00 Intake Total 1170 ml 1800 ml Output Total 300 ml 350 ml Balance 870 ml 1450 ml MEGHAN HERNANDEZ MD May 23, 2019 10:34
[2019-05-23 11:00] VITALS: BP 103/63
--- NOTE | 2019-05-23 11:35 | PDOC2 ---
CONSULT Date of Consult Date of Consult DATE: 05/23/19 TIME: 11:33 Reason for Consult Reason for Consult: Left foot wounds Referring Physician Referring Physician: Hiro Identification/Chief Complaint Chief Complaint L foot wounds and pain Source Source: Patient History of Present Illness Reason for Visit: Patient had noticed a wound opened up on the bottom of his foot several months ago. He has been getting wound care treatments but he feels that the swelling has been getting worse. He has been on intermittent oral antibiotics as well. Recently he noticed new wounds developed with drainage as well. He also mentions that he caught his fifth toenail on something and poor it off recently as well Past Medical History Cardiovascular: CAD, HTN, Hyperlipidemia Pulmonary: No pertinent hx GI: No pertinent hx Heme/Onc: No pertinent hx Hepatobiliary: No pertinent hx Psych: No pertinent hx Rheumatologic: No pertinent hx Infectious disease: No pertinent hx ENT: No pertinent hx Renal/: No pertinent hx Endocrine: Diabetes Dermatology: No pertinent hx Past Surgical History Past Surgical History: No pertinent history Family History Family History: Diabetes Social History <1 pack per day ALCOHOL: none Drugs: None Lives: Friends Current Problem List Problem List Problems Medical Problems: (1) Diabetic foot ulcer Status: Acute (2) Hypokalemia Status: Acute (3) Left leg cellulitis Status: Acute (4) Nausea and vomiting Status: Acute (5) Uncontrolled diabetes mellitus Status: Acute Current Medications Current Medications Current Medications Sodium Chloride 1,000 ml @ 1,000 mls/hr 1X ONCE IV Last administered on 05/22/19at 17:18; Start 05/22/19 at 17:00; Stop 05/22/19 at 17:59; Status DC Ondansetron HCl (Zofran) 4 mg 1X ONCE IV Last administered on 05/22/19at 17:18; Start 05/22/19 at 17:00; Stop 05/22/19 at 17:07; Status DC Cefazolin Sodium 50 ml @ 100 mls/hr 1X ONCE IV Last administered on 05/22/19at 17:57; Start 05/22/19 at 17:00; Stop 05/22/19 at 17:29; Status DC Vancomycin HCl 250 ml @ 250 mls/hr 1X ONCE IV ; Start 05/22/19 at 17:00; Stop 05/22/19 at 17:59; Status UNV Vancomycin HCl 2 gm/Sodium Chloride 500 ml @ 250 mls/hr 1X ONCE IV Last administered on 05/22/19at 18:32; Start 05/22/19 at 17:15; Stop 05/22/19 at 19:14; Status DC Insulin Human Lispro (HumaLOG) 0-7 UNITS TIDACHC SQ ; Start 05/22/19 at 21:00 Dextrose (Dextrose 50%-Water Syringe) 12.5 gm PRN Q15MIN PRN IV SEE COMMENTS; Start 05/22/19 at 19:45 Dextrose 250 ml PRN Q15MIN PRN IV SEE COMMENTS; Start 05/22/19 at 19:45 Atorvastatin Calcium (Lipitor) 40 mg QHS PO Last administered on 05/22/19at 21:46; Start 05/22/19 at 21:00 Insulin Glargine (Lantus Syringe) 15 unit QHS SQ ; Start 05/22/19 at 21:00; Stop 05/22/19 at 21:16; Status DC Cefazolin Sodium 1 gm/Dextrose 50 ml @ 100 mls/hr Q8HRS IV ; Start 05/22/19 at 22:00; Stop 05/22/19 at 21:12; Status DC Vancomycin HCl (Vanco Per Pharmacy) 1 each PRN DAILY PRN MC SEE COMMENTS Last administered on 05/22/19at 21:29; Start 05/22/19 at 19:45 Enoxaparin Sodium (Lovenox 40mg Syringe) 40 mg Q24H SQ Last administered on 05/22/19at 21:46; Start 05/22/19 at 21:00 Insulin Glargine (Lantus Syringe) 45 unit QHS SQ Last administered on 05/22/19at 21:46; Start 05/22/19 at 21:00 Cefazolin Sodium (Ancef) 1 gm Q8HRS IVP Last administered on 05/23/19at 06:17; Start 05/22/19 at 22:00 Vancomycin HCl (Vancomycin Trough Level) 1 each 1X ONCE MC ; Start 05/24/19 at 06:30; Stop 05/24/19 at 06:31 Vancomycin HCl 1.75 gm/Sodium Chloride 500 ml @ 250 mls/hr Q18H IV ; Start 05/23/19 at 13:00 Tramadol HCl (Ultram) 50 mg PRN Q6HRS PRN PO PAIN Last administered on 05/23/19at 02:38; Start 05/22/19 at 23:00 Morphine Sulfate (Morphine Sulfate) 2 mg PRN Q4HRS PRN IV PAIN; Start 05/22/19 at 23:00 Active Scripts Active Clopidogrel (Clopidogrel Bisulfate) 75 Mg Tablet 75 Mg PO DAILYWBKFT Children's Aspirin (Aspirin) 81 Mg Tab.chew 81 Mg PO DAILYWBKFT Atorvastatin Calcium 40 Mg Tablet 40 Mg PO QHS Reported Zofran (Ondansetron Hcl) 4 Mg Tablet 1 Tab PO Q6HRS Jardiance (Empagliflozin) 10 Mg Tablet 10 Mg PO DAILY PRN Gabapentin 600 Mg Tablet 300 Mg PO HS Famotidine 20 Mg Tablet 20 Mg PO BID Furosemide 40 Mg Tablet 1 Tab PO DAILY Cialis (Tadalafil) 5 Mg Tablet 2.5 Mg PO DAILY Lantus Solostar (Insulin Glargine,Hum.rec.anlog) 100 Unit/1 Ml Insuln.pen 45 Unit SQ QHS Metformin Hcl 1,000 Mg Tablet 1,000 Mg PO BIDWMEALS Allergies Allergies: Coded Allergies: No Known Drug Allergies (Unverified , 05/03/16) ROS General: No: Chills, Night Sweats, Fatigue, Malaise, Appetite, Other PSYCHOLOGICAL ROS: No: Anxiety, Behavioral Disorder, Concentration difficultie, Decreased libido, Depression, Disorientation, Hallucinations, Hostility, Irritablity, Memory difficulties, Mood Swings, Obsessive thoughts, Physical abuse, Sexual abuse, Sleep disturbances, Suicidal ideation, Other Eyes: No Blurry vision, No Decreased vision, No Double vision, No Dry eyes, No Excessive tearing, No Eye Pain, No Itchy Eyes, No Loss of vision, No Photophobia, No Scotomata, No Uses contacts, No Uses glasses, No Other HEENT: No: Heacaches, Visual Changes, Hearing change, Nasal congestion, Nasal discharge, Oral lesions, Sinus pain, Sore Throat, Epistaxis, Sneezing, Snoring, Tinnitus, Vertigo, Vocal changes, Other ALLERGY AND IMMUNOLOGY: No: Hives, Insect Bite Sensitivity, Itchy/Watery Eyes, Nasal Congestion, Post Nasal Drip, Seasonal Allergies, Other Hematological and Lymphatic: No: Bleeding Problems, Blood Clots, Blood Transfusions, Brusing, Night Sweats, Pallor, Swollen Lymph Nodes, Other ENDOCRINE: No: Breast Changes, Galactorrhea, Hair Pattern Changes, Hot Flashes, Malaise/lethargy, Mood Swings, Palpitations, Polydipsia/polyuria, Skin Changes, Temperature Intolerance, Unexpected Weight Changes, Other Respiratory: No: Cough, Hemoptysis, Orthopnea, Pleuritic Pain, Shortness of b reath, SOB with excertion, Sputum Changes, Stridor, Tachypnea, Wheezing, Other Cardiovascular: No Chest Pain, No Palpitations, No Orthopnea, No Paroxysmal Noc. Dyspnea, No Edema, No Lt Headedness, No Other Gastrointestinal: No Nausea, No Vomiting, No Abdominal Pain, No Diarrhea, No Constipation, No Melena, No Hematochezia, No Other Genitourinary: No Dysuria, No Frequency, No Incontinence, No Hematuria, No Retention, No Discharge, No Urgency, No Pain, No Flank Pain, No Other, No , No , No , No , No , No , No Musculoskeletal: Yes Joint Pain, Yes Joint Swelling Neurological: Yes Numbness/Tingling; No Behavorial Changes, No Bowel/Bladder ControlChng, No Confusion, No Dizziness, No Gait Disturbance, No Headaches, No Impaired Coord/balance, No Memory Loss, No Seizures, No Speech Problems, No Tremors, No Visual Changes, No Weakness, No Other Skin: Yes Nail Changes; No Dry Skin, No Eczema, No Hair Changes, No Lumps, No Mole Changes, No Mottling, No Pruritus, No Rash, No Skin Lesion Changes, No Other, No Acne Physical Exam General: Alert, Oriented X3 HEENT: Atraumatic, EOMI Lungs: Other (respirations aren't labored with symmetric chest rise) Heart: Regular rate Abdomen: Soft, No tenderness Extremities: No edema, Normal pulses Neuro: Normal speech, Strength at 5/5 X4 ext, Other (decreased sensation bilateral forefeet) Psych/Mental Status: Mental status NL, Mood NL MUSCULOSKELETAL: Other (on examination of his left lower extremity, there is a dime sized wound over his plantar distal first metatarsal, 2 smaller wounds over the medial border of his distal first metatarsal as well. This area is swollen and slightly erythematous. The erythema does track to distal third calf.) Vitals VITALS Vital Signs Date Time Temp Pulse Resp B/P (MAP) Pulse Ox O2 Delivery O2 Flow Rate FiO2 05/23/19 07:15 Room Air 05/23/19 07:00 98.4 63 18 97/58 (71) 94 98.4 Labs Labs Laboratory Tests Test 05/22/19 17:07 05/22/19 19:15 05/22/19 20:21 05/23/19 05:40 White Blood Count 11.4 x10^3/uL (4.0-11.0) 9.8 x10^3/uL (4.0-11.0) Red Blood Count 4.94 x10^6/uL (4.30-5.70) 4.54 x10^6/uL (4.30-5.70) Hemoglobin 15.3 g/dL (13.0-17.5) 13.9 g/dL (13.0-17.5) Hematocrit 42.5 % (39.0-53.0) 39.4 % (39.0-53.0) Mean Corpuscular Volume 86 fL (79-100) 87 fL (79-100) Mean Corpuscular Hemoglobin 31 pg (25-35) 31 pg (25-35) Mean Corpuscular Hemoglobin Concent 36 g/dL (31-37) 35 g/dL (31-37) Red Cell Distribution Width 15.1 % (11.5-14.5) 14.9 % (11.5-14.5) Platelet Count 159 x10^3/uL (140-400) 154 x10^3/uL (140-400) Neutrophils (%) (Auto) 61 % (31-73) 58 % (31-73) Lymphocytes (%) (Auto) 22 % (24-48) 27 % (24-48) Monocytes (%) (Auto) 14 % (0-9) 13 % (0-9) Eosinophils (%) (Auto) 2 % (0-3) 2 % (0-3) Basophils (%) (Auto) 1 % (0-3) 1 % (0-3) Neutrophils # (Auto) 7.0 x10^3/uL (1.8-7.7) 5.7 x10^3/uL (1.8-7.7) Lymphocytes # (Auto) 2.5 x10^3/uL (1.0-4.8) 2.6 x10^3/uL (1.0-4.8) Monocytes # (Auto) 1.5 x10^3/uL (0.0-1.1) 1.3 x10^3/uL (0.0-1.1) Eosinophils # (Auto) 0.3 x10^3/uL (0.0-0.7) 0.2 x10^3/uL (0.0-0.7) Basophils # (Auto) 0.1 x10^3/uL (0.0-0.2) 0.1 x10^3/uL (0.0-0.2) Sodium Level 137 mmol/L (136-145) 142 mmol/L (136-145) Potassium Level 3.4 mmol/L (3.5-5.1) 3.2 mmol/L (3.5-5.1) Chloride Level 99 mmol/L (98-107) 105 mmol/L (98-107) Carbon Dioxide Level 27 mmol/L (21-32) 29 mmol/L (21-32) Anion Gap 11 (6-14) 8 (6-14) Blood Urea Nitrogen 26 mg/dL (8-26) 19 mg/dL (8-26) Creatinine 1.3 mg/dL (0.7-1.3) 0.9 mg/dL (0.7-1.3) Estimated GFR (Cockcroft-Gault) 56.3 86.1 BUN/Creatinine Ratio 20 (6-20) Glucose Level 240 mg/dL (70-99) 84 mg/dL (70-99) Lactic Acid Level 1.7 mmol/L (0.4-2.0) Calcium Level 9.4 mg/dL (8.5-10.1) 8.6 mg/dL (8.5-10.1) Total Bilirubin 1.0 mg/dL (0.2-1.0) Aspartate Amino Transf (AST/SGOT) 30 U/L (15-37) Alanine Aminotransferase (ALT/SGPT) 30 U/L (16-63) Alkaline Phosphatase 86 U/L (46-116) Troponin I Quantitative < 0.017 ng/mL (0.000-0.055) Total Protein 8.0 g/dL (6.4-8.2) Albumin 3.4 g/dL (3.4-5.0) Albumin/Globulin Ratio 0.7 (1.0-1.7) Lipase 57 U/L (73-393) Urine Collection Type Unknown Urine Color Yellow Urine Clarity Cloudy Urine pH 6.0 Urine Specific [place] >=1.030 Urine Protein Negative mg/dL (NEG-TRACE) Urine Glucose (UA) >=1000 mg/dL (NEG) Urine Ketones (Stick) Negative mg/dL (NEG) Urine Blood Trace (NEG) Urine Nitrite Negative (NEG) Urine Bilirubin Negative (NEG) Urine Urobilinogen Dipstick 1.0 mg/dL (0.2 mg/dL) Urine Leukocyte Esterase Negative (NEG) Urine RBC 3-5 /HPF (0-2) Urine WBC Rare /HPF (0-4) Urine Squamous Epithelial Cells Few /LPF Urine Bacteria 0 /HPF (0-FEW) Glucose (Fingerstick) 154 mg/dL (70-99) Test 05/23/19 07:31 05/23/19 11:12 Glucose (Fingerstick) 101 mg/dL (70-99) 169 mg/dL (70-99) Laboratory Tests Test 05/22/19 17:07 05/22/19 19:15 05/22/19 20:21 05/23/19 05:40 White Blood Count 11.4 x10^3/uL (4.0-11.0) 9.8 x10^3/uL (4.0-11.0) Red Blood Count 4.94 x10^6/uL (4.30-5.70) 4.54 x10^6/uL (4.30-5.70) Hemoglobin 15.3 g/dL (13.0-17.5) 13.9 g/dL (13.0-17.5) Hematocrit 42.5 % (39.0-53.0) 39.4 % (39.0-53.0) Mean Corpuscular Volume 86 fL (79-100) 87 fL (79-100) Mean Corpuscular Hemoglobin 31 pg (25-35) 31 pg (25-35) Mean Corpuscular Hemoglobin Concent 36 g/dL (31-37) 35 g/dL (31-37) Red Cell Distribution Width 15.1 % (11.5-14.5) 14.9 % (11.5-14.5) Platelet Count 159 x10^3/uL (140-400) 154 x10^3/uL (140-400) Neutrophils (%) (Auto) 61 % (31-73) 58 % (31-73) Lymphocytes (%) (Auto) 22 % (24-48) 27 % (24-48) Monocytes (%) (Auto) 14 % (0-9) 13 % (0-9) Eosinophils (%) (Auto) 2 % (0-3) 2 % (0-3) Basophils (%) (Auto) 1 % (0-3) 1 % (0-3) Neutrophils # (Auto) 7.0 x10^3/uL (1.8-7.7) 5.7 x10^3/uL (1.8-7.7) Lymphocytes # (Auto) 2.5 x10^3/uL (1.0-4.8) 2.6 x10^3/uL (1.0-4.8) Monocytes # (Auto) 1.5 x10^3/uL (0.0-1.1) 1.3 x10^3/uL (0.0-1.1) Eosinophils # (Auto) 0.3 x10^3/uL (0.0-0.7) 0.2 x10^3/uL (0.0-0.7) Basophils # (Auto) 0.1 x10^3/uL (0.0-0.2) 0.1 x10^3/uL (0.0-0.2) Sodium Level 137 mmol/L (136-145) 142 mmol/L (136-145) Potassium Level 3.4 mmol/L (3.5-5.1) 3.2 mmol/L (3.5-5.1) Chloride Level 99 mmol/L (98-107) 105 mmol/L (98-107) Carbon Dioxide Level 27 mmol/L (21-32) 29 mmol/L (21-32) Anion Gap 11 (6-14) 8 (6-14) Blood Urea Nitrogen 26 mg/dL (8-26) 19 mg/dL (8-26) Creatinine 1.3 mg/dL (0.7-1.3) 0.9 mg/dL (0.7-1.3) Estimated GFR (Cockcroft-Gault) 56.3 86.1 BUN/Creatinine Ratio 20 (6-20) Glucose Level 240 mg/dL (70-99) 84 mg/dL (70-99) Lactic Acid Level 1.7 mmol/L (0.4-2.0) Calcium Level 9.4 mg/dL (8.5-10.1) 8.6 mg/dL (8.5-10.1) Total Bilirubin 1.0 mg/dL (0.2-1.0) Aspartate Amino Transf (AST/SGOT) 30 U/L (15-37) Alanine Aminotransferase (ALT/SGPT) 30 U/L (16-63) Alkaline Phosphatase 86 U/L (46-116) Troponin I Quantitative < 0.017 ng/mL (0.000-0.055) Total Protein 8.0 g/dL (6.4-8.2) Albumin 3.4 g/dL (3.4-5.0) Albumin/Globulin Ratio 0.7 (1.0-1.7) Lipase 57 U/L (73-393) Urine Collection Type Unknown Urine Color Yellow Urine Clarity Cloudy Urine pH 6.0 Urine Specific [place] >=1.030 Urine Protein Negative mg/dL (NEG-TRACE) Urine Glucose (UA) >=1000 mg/dL (NEG) Urine Ketones (Stick) Negative mg/dL (NEG) Urine Blood Trace (NEG) Urine Nitrite Negative (NEG) Urine Bilirubin Negative (NEG) Urine Urobilinogen Dipstick 1.0 mg/dL (0.2 mg/dL) Urine Leukocyte Esterase Negative (NEG) Urine RBC 3-5 /HPF (0-2) Urine WBC Rare /HPF (0-4) Urine Squamous Epithelial Cells Few /LPF Urine Bacteria 0 /HPF (0-FEW) Glucose (Fingerstick) 154 mg/dL (70-99) Test 05/23/19 07:31 05/23/19 11:12 Glucose (Fingerstick) 101 mg/dL (70-99) 169 mg/dL (70-99) Images Images Xrays and U/S reviewed Assessment/Plan Assessment/Plan Discussed proceeding with I and D, possible wound VAC. We will see how clean appearing this is at the end of the irrigation and may possibly close this, versus the wound VAC, I did discuss with him that the final determination will be made during surgery. He also requests that I dressed the toenail which I'll be happy to do as well. MATEUSZ HENDERSON II, MD May 23, 2019 11:34
--- NOTE | 2019-05-23 11:49 | NUR ---
Wound Care Wound care consult for left foot DFU. Pt has multiple small openings to dorsal 1st met head and one on dorsal side of 1st met head with slough covered bases and purulent foul drainage coming from all openings. Cleansed area and removed scab from plantar opening, unable to probe tunneling to dorsal foot but base of wound is slough covered. Foot and ankle area are reddened and warm. Recommend ortho consult, discussed findings with Dr Chinchilla and Dr Bosch. Packed all areas with aquacel ag and covered with ABD and Kerlix. No other wounds noted. Pt left on back with heel floated. WC will continue to follow for possible changes.
[2019-05-23] MEDS: VANCOMYCIN 1.75 GM in IV NORMAL SALINE 500ML BAG 500 ML IV SCH (12:22)
--- NOTE | 2019-05-23 12:34 | NUR ---
SS following for discharge planning. SS reviewed pt chart. Pt is self pay pt. HCFS following for self pay status. Pt is from home and is currently on room air. No discharge needs noted at this time. SS will continue to follow for discharge planning.
[2019-05-23] MEDS: VANCOMYCIN PER PHARMACY MC PRN (13:36)
[2019-05-23] MEDS ORDERED: POTASSIUM CHLORIDE 20 MEQ TABLET.ER. PO ONE (14:00)
[2019-05-23] MEDS: MULTIVITAMIN with MINERAL TABLET. PO SCH (14:46)
[2019-05-23 15:00] VITALS: BP 109/58
[2019-05-23 19:00] VITALS: BP 114/60
--- NOTE | 2019-05-23 19:30 | RAD ---
Examination: Ultrasound left lower extremity arterial duplex HISTORY: History of diabetic foot ulcer COMPARISON: None available Technique: Grayscale, color Doppler 2-D, spectral waveform analysis of the left lower extremity arterial system were performed FINDINGS: The common femoral artery measures 106 cm/s Deep femoral artery 75 cm/s. Proximal SFA 116 cm/s. Mid SFA 117 cm/s. Distal SFA 88 cm/s. Popliteal artery 123 cm/s. Proximal S[employer]IOR [employer]ER SERVICE REPRESENTATIVE 100 cm/s. Distal S[employer]IOR C[employer]ER SERVICE REPRESENTATIVE 109 cm/s. Peroneal artery 92 cm/s. The anterior tibialis artery is not well-visualized. The velocity in the dorsalis pedis artery measures 140 cm/s. Mild atherosclerotic plaque identified in the left common femoral artery. 3.6 cm lymph node identified in the left groin. IMPRESSION: 1. No evidence of hemodynamically significant stenosis. 2. Mild increased velocity identified in the calf arteries, nonspecific. Electronically signed by: Adria Tony MD (05/23/2019 5:50 PM) [id number]
[2019-05-23] MEDS: INSULIN GLARGINE SYRINGE. SQ SCH (21:00)
[2019-05-23] MEDS: LACTOBACILLUS RHAMNOSUS GG 1 CAPSULE. PO SCH (21:27)
[2019-05-23] MEDS: ATORVASTATIN CALCIUM 40 MG TABLET. PO SCH (21:27)
[2019-05-23] MEDS: ENOXAPARIN 40 MG/0.4 ML SYRINGE. SQ SCH (21:29)
[2019-05-23 23:00] VITALS: BP 126/64
[2019-05-24] VITALS (9 sets, daily range): BP systolic 104–128; BP diastolic 47–72
[2019-05-24] MEDS: ceFAZolin SODIUM IV Push 1 GM VIAL. IVP SCH ×3 (05:43→21:41)
[2019-05-24 06:01] LABS: CALCIUM 8.9 mg/dL (8.5-10.1); GFR 76.2; POTASSIUM 3.6 mmol/L (3.5-5.1)
[2019-05-24] MEDS ORDERED: HYDROmorphone 2 MG/ML VIAL IV PRN (07:00)
[2019-05-24] MEDS ORDERED: IV RINGERS,LACTATED 1000ML 1,000 ML IV SCH (07:00)
[2019-05-24] MEDS ORDERED: ONDANSETRON PF 4 MG/2 ML VIAL. IV PRN (07:00)
[2019-05-24] MEDS ORDERED: MORPHINE SULFATE 2 MG/ML VIAL. IV PRN (07:00)
[2019-05-24] MEDS ORDERED: LIDOCAINE 1% PF 2 ML VIAL. ID PRN (07:00)
[2019-05-24] MEDS ORDERED: PROCHLORPERAZINE 10 MG/2 ML VIAL. IV PRN (07:00)
[2019-05-24] MEDS ORDERED: fentaNYL PF VIAL 100 MCG/2 ML VIAL IV PRN ×2 (07:00)
[2019-05-24] MEDS: INSULIN LISPRO 300 UNITS/3 ML VIAL. SQ SCH ×4 (07:30→21:50)
[2019-05-24 08:08] LABS: VANC TR 7.2 mcg/mL (10.0-20.0)
--- NOTE | 2019-05-24 09:03 | PDOC ---
PROGRESS NOTES Chief Complaint Chief Complaint A/P: LLE cellulitis and abscess - small abscess, negative for osteomyelitis. Will obtain blood cultures, cont empiric vancomycin and cefazolin. Elevate extremity. Tylenol for fever. Will check arterial flow Left great toe diabetic ulcer - x2, will have wound care to see,. antibiotics as above Hypokalemia - will replace, check mag JERI - likely vasomotor from vomiting episodes, will give IVF hydration HTN - will monitor BP CAD (s/p COLE to RCA in 2016) - stable. Has been on ASA Diabetes-Type II - on metformin, will place on sliding scale basal bolus plus regimen in house Smoker - counseled on cessation hypokalemia FEN - ADA diet PPX - Lovenox FULL CODE Inpatient for cellulitis and abscess with diabetic foot. History of Present Illness History of Present Illness Mr Echavarria is a 59yo M w/ PMHx HTN, CAD (s/p COLE to RCA in 2016), Diabetes-Type II, smoker who presents with complaining of left leg swelling and redness. Patient states he has had chronic left leg ulcer for several months that has been getting [place] [facility], but suddenly began getting worse for the last 3-4 days and for the last 24 hours has large erythema and ed malachi with fever and chills, pain, weakness. Patient states he had episode of nausea and vomiting started 4 days ago and felt better with Zofran given by his primary care physician previously. Patient denies chest pain, diarrhea and constipation, urinary symptom, shortness of breath. He had venous doppler negative for DVT and Xray that does not show osteomyelitis, WBC elevated at 11.4. Cr 1.3, potassium 3.4. Arterial dopplers negative for impeded flow. Ortho consulted for possible I&D Cellulitic area improved. NPO for possible surgical I&D. Potassium a bit low. Denies SOB or CP. 38 min pt exam, chart review, > 50% of time spent with exam, chart review, pt care coordination Vitals Vitals Vital Signs Date Time Temp Pulse Resp B/P (MAP) Pulse Ox O2 Delivery O2 Flow Rate FiO2 05/24/19 07:00 98.3 62 14 104/64 (77) 96 Room Air 98.3 Physical Exam General: Alert, Oriented X3, Cooperative, No acute distress Heart: Regular rate Lungs: Clear Abdomen: Normal bowel sounds, Soft, No tenderness, No hepatosplenomegaly, No masses Extremities: No clubbing, No cyanosis, Other (LLE edema and warm, red up to mid calf. Ulcer on plantar surfarce at 1st MTP joint 2cm and medial ulcer with small fluctuance 2x3cm with blistering) Skin: Other (As above) Labs LABS Laboratory Tests Test 05/23/19 11:12 05/23/19 16:53 05/23/19 20:54 05/24/19 05:10 Glucose (Fingerstick) 169 mg/dL (70-99) 209 mg/dL (70-99) 163 mg/dL (70-99) Sodium Level 139 mmol/L (136-145) Potassium Level 3.6 mmol/L (3.5-5.1) Chloride Level 103 mmol/L (98-107) Carbon Dioxide Level 30 mmol/L (21-32) Anion Gap 6 (6-14) Blood Urea Nitrogen 14 mg/dL (8-26) Creatinine 1.0 mg/dL (0.7-1.3) Estimated GFR (Cockcroft-Gault) 76.2 Glucose Level 101 mg/dL (70-99) Calcium Level 8.9 mg/dL (8.5-10.1) Vancomycin Level Trough 7.2 mcg/mL (10.0-20.0) Vancomycin Last Dose Date 05/23/19 Vancomycin Last Dose Time 1222 Test 05/24/19 07:10 Glucose (Fingerstick) 107 mg/dL (70-99) Assessment and Plan Assessmemt and Plan Problems Medical Problems: (1) Diabetic foot ulcer Status: Acute (2) Hypokalemia Status: Acute (3) Left leg cellulitis Status: Acute (4) Nausea and vomiting Status: Acute (5) Uncontrolled diabetes mellitus Status: Acute Comment Review of Relevant I have reviewed the following items bhanu (where applicable) has been applied. Labs Laboratory Tests Test 05/22/19 17:07 05/22/19 19:15 05/22/19 20:21 05/23/19 05:40 White Blood Count 11.4 x10^3/uL (4.0-11.0) 9.8 x10^3/uL (4.0-11.0) Red Blood Count 4.94 x10^6/uL (4.30-5.70) 4.54 x10^6/uL (4.30-5.70) Hemoglobin 15.3 g/dL (13.0-17.5) 13.9 g/dL (13.0-17.5) Hematocrit 42.5 % (39.0-53.0) 39.4 % (39.0-53.0) Mean Corpuscular Volume 86 fL (79-100) 87 fL (79-100) Mean Corpuscular Hemoglobin 31 pg (25-35) 31 pg (25-35) Mean Corpuscular Hemoglobin Concent 36 g/dL (31-37) 35 g/dL (31-37) Red Cell Distribution Width 15.1 % (11.5-14.5) 14.9 % (11.5-14.5) Platelet Count 159 x10^3/uL (140-400) 154 x10^3/uL (140-400) Neutrophils (%) (Auto) 61 % (31-73) 58 % (31-73) Lymphocytes (%) (Auto) 22 % (24-48) 27 % (24-48) Monocytes (%) (Auto) 14 % (0-9) 13 % (0-9) Eosinophils (%) (Auto) 2 % (0-3) 2 % (0-3) Basophils (%) (Auto) 1 % (0-3) 1 % (0-3) Neutrophils # (Auto) 7.0 x10^3/uL (1.8-7.7) 5.7 x10^3/uL (1.8-7.7) Lymphocytes # (Auto) 2.5 x10^3/uL (1.0-4.8) 2.6 x10^3/uL (1.0-4.8) Monocytes # (Auto) 1.5 x10^3/uL (0.0-1.1) 1.3 x10^3/uL (0.0-1.1) Eosinophils # (Auto) 0.3 x10^3/uL (0.0-0.7) 0.2 x10^3/uL (0.0-0.7) Basophils # (Auto) 0.1 x10^3/uL (0.0-0.2) 0.1 x10^3/uL (0.0-0.2) Sodium Level 137 mmol/L (136-145) 142 mmol/L (136-145) Potassium Level 3.4 mmol/L (3.5-5.1) 3.2 mmol/L (3.5-5.1) Chloride Level 99 mmol/L (98-107) 105 mmol/L (98-107) Carbon Dioxide Level 27 mmol/L (21-32) 29 mmol/L (21-32) Anion Gap 11 (6-14) 8 (6-14) Blood Urea Nitrogen 26 mg/dL (8-26) 19 mg/dL (8-26) Creatinine 1.3 mg/dL (0.7-1.3) 0.9 mg/dL (0.7-1.3) Estimated GFR (Cockcroft-Gault) 56.3 86.1 BUN/Creatinine Ratio 20 (6-20) Glucose Level 240 mg/dL (70-99) 84 mg/dL (70-99) Lactic Acid Level 1.7 mmol/L (0.4-2.0) Calcium Level 9.4 mg/dL (8.5-10.1) 8.6 mg/dL (8.5-10.1) Total Bilirubin 1.0 mg/dL (0.2-1.0) Aspartate Amino Transf (AST/SGOT) 30 U/L (15-37) Alanine Aminotransferase (ALT/SGPT) 30 U/L (16-63) Alkaline Phosphatase 86 U/L (46-116) Troponin I Quantitative < 0.017 ng/mL (0.000-0.055) Total Protein 8.0 g/dL (6.4-8.2) Albumin 3.4 g/dL (3.4-5.0) Albumin/Globulin Ratio 0.7 (1.0-1.7) Lipase 57 U/L (73-393) Urine Collection Type Unknown Urine Color Yellow Urine Clarity Cloudy Urine pH 6.0 Urine Specific Whiting >=1.030 Urine Protein Negative mg/dL (NEG-TRACE) Urine Glucose (UA) >=1000 mg/dL (NEG) Urine Ketones (Stick) Negative mg/dL (NEG) Urine Blood Trace (NEG) Urine Nitrite Negative (NEG) Urine Bilirubin Negative (NEG) Urine Urobilinogen Dipstick 1.0 mg/dL (0.2 mg/dL) Urine Leukocyte Esterase Negative (NEG) Urine RBC 3-5 /HPF (0-2) Urine WBC Rare /HPF (0-4) Urine Squamous Epithelial Cells Few /LPF Urine Bacteria 0 /HPF (0-FEW) Glucose (Fingerstick) 154 mg/dL (70-99) Test 05/23/19 07:31 05/23/19 11:12 05/23/19 16:53 05/23/19 20:54 Glucose (Fingerstick) 101 mg/dL (70-99) 169 mg/dL (70-99) 209 mg/dL (70-99) 163 mg/dL (70-99) Test 05/24/19 05:10 05/24/19 07:10 Sodium Level 139 mmol/L (136-145) Potassium Level 3.6 mmol/L (3.5-5.1) Chloride Level 103 mmol/L (98-107) Carbon Dioxide Level 30 mmol/L (21-32) Anion Gap 6 (6-14) Blood Urea Nitrogen 14 mg/dL (8-26) Creatinine 1.0 mg/dL (0.7-1.3) Estimated GFR (Cockcroft-Gault) 76.2 Glucose Level 101 mg/dL (70-99) Calcium Level 8.9 mg/dL (8.5-10.1) Vancomycin Level Trough 7.2 mcg/mL (10.0-20.0) Vancomycin Last Dose Date 05/23/19 Vancomycin Last Dose Time 1222 Glucose (Fingerstick) 107 mg/dL (70-99) Laboratory Tests Test 05/23/19 11:12 05/23/19 16:53 05/23/19 20:54 05/24/19 05:10 Glucose (Fingerstick) 169 mg/dL (70-99) 209 mg/dL (70-99) 163 mg/dL (70-99) Sodium Level 139 mmol/L (136-145) Potassium Level 3.6 mmol/L (3.5-5.1) Chloride Level 103 mmol/L (98-107) Carbon Dioxide Level 30 mmol/L (21-32) Anion Gap 6 (6-14) Blood Urea Nitrogen 14 mg/dL (8-26) Creatinine 1.0 mg/dL (0.7-1.3) Estimated GFR (Cockcroft-Gault) 76.2 Glucose Level 101 mg/dL (70-99) Calcium Level 8.9 mg/dL (8.5-10.1) Vancomycin Level Trough 7.2 mcg/mL (10.0-20.0) Vancomycin Last Dose Date 05/23/19 Vancomycin Last Dose Time 1222 Test 05/24/19 07:10 Glucose (Fingerstick) 107 mg/dL (70-99) Microbiology 05/22/19 Blood Culture - Preliminary, Resulted NO GROWTH AFTER 1 DAY Medications Current Medications Sodium Chloride 1,000 ml @ 1,000 mls/hr 1X ONCE IV Last administered on 05/22/19at 17:18; Start 05/22/19 at 17:00; Stop 05/22/19 at 17:59; Status DC Ondansetron HCl (Zofran) 4 mg 1X ONCE IV Last administered on 05/22/19at 17:18; Start 05/22/19 at 17:00; Stop 05/22/19 at 17:07; Status DC Cefazolin Sodium 50 ml @ 100 mls/hr 1X ONCE IV Last administered on 05/22/19at 17:57; Start 05/22/19 at 17:00; Stop 05/22/19 at 17:29; Status DC Vancomycin HCl 250 ml @ 250 mls/hr 1X ONCE IV ; Start 05/22/19 at 17:00; Stop 05/22/19 at 17:59; Status UNV Vancomycin HCl 2 gm/Sodium Chloride 500 ml @ 250 mls/hr 1X ONCE IV Last administered on 05/22/19at 18:32; Start 05/22/19 at 17:15; Stop 05/22/19 at 19:14; Status DC Insulin Human Lispro (HumaLOG) 0-7 UNITS TIDACHC SQ Last administered on 05/23/19at 17:31; Start 05/22/19 at 21:00 Dextrose (Dextrose 50%-Water Syringe) 12.5 gm PRN Q15MIN PRN IV SEE COMMENTS; Start 05/22/19 at 19:45 Dextrose 250 ml PRN Q15MIN PRN IV SEE COMMENTS; Start 05/22/19 at 19:45 Atorvastatin Calcium (Lipitor) 40 mg QHS PO Last administered on 05/23/19at 21:44; Start 05/22/19 at 21:00 Insulin Glargine (Lantus Syringe) 15 unit QHS SQ ; Start 05/22/19 at 21:00; Stop 05/22/19 at 21:16; Status DC Cefazolin Sodium 1 gm/Dextrose 50 ml @ 100 mls/hr Q8HRS IV ; Start 05/22/19 at 22:00; Stop 05/22/19 at 21:12; Status DC Vancomycin HCl (Vanco Per Pharmacy) 1 each PRN DAILY PRN MC SEE COMMENTS Last administered on 05/23/19at 13:43; Start 05/22/19 at 19:45 Enoxaparin Sodium (Lovenox 40mg Syringe) 40 mg Q24H SQ Last administered on 05/23/19 21:44; Start 05/22/19 at 21:00 Insulin Glargine (Lantus Syringe) 45 unit QHS SQ Last administered on 05/23/19 21:44; Start 05/22/19 at 21:00 Cefazolin Sodium (Ancef) 1 gm Q8HRS IVP Last administered on 05/24/19at 05:43; Start 05/22/19 at 22:00 Vancomycin HCl (Vancomycin Trough Level) 1 each 1X ONCE MC ; Start 05/24/19 at 06:30; Stop 05/24/19 at 06:31; Status DC Vancomycin HCl 1.75 gm/Sodium Chloride 500 ml @ 250 mls/hr Q18H IV Last ad ministered on 05/23/19at 12:28; Start 05/23/19 at 13:00 Tramadol HCl (Ultram) 50 mg PRN Q6HRS PRN PO PAIN Last administered on 05/23/19at 21:48; Start 05/22/19 at 23:00 Morphine Sulfate (Morphine Sulfate) 2 mg PRN Q4HRS PRN IV PAIN; Start 05/22/19 at 23:00 Lactobacillus Rhamnosus (Culturelle) 1 cap BID PO Last administered on 05/23/19at 21:44; Start 05/23/19 at 21:00 Potassium Chloride (Klor-Con) 40 meq 1X ONCE PO Last administered on 05/23/19at 14:47; Start 05/23/19 at 14:00; Stop 05/23/19 at 14:01; Status DC Potassium Chloride (Klor-Con) 20 meq DAILYWBKFT PO ; Start 05/24/19 at 08:00 Multivitamins (Thera M Plus) 1 tab DAILY PO Last administered on 05/23/19at 14:47; Start 05/23/19 at 14:00 Ondansetron HCl (Zofran) 4 mg PRN Q6HRS PRN IV NAUSEA/VOMITING; Start 05/24/19 at 07:00; Stop 05/24/19 at 20:00 Fentanyl Citrate (Fentanyl 2ml Vial) 25 mcg PRN Q5MIN PRN IV MILD PAIN 1-3; Start 05/24/19 at 07:00; Stop 05/24/19 at 20:00 Fentanyl Citrate (Fentanyl 2ml Vial) 50 mcg PRN Q5MIN PRN IV MODERATE TO SEVERE PAIN; Start 05/24/19 at 07:00; Stop 05/24/19 at 20:00 Morphine Sulfate (Morphine Sulfate) 1 mg PRN Q10MIN PRN IV SEVERE PAIN 7-10; Start 05/24/19 at 07:00; Stop 05/24/19 at 20:00 Ringer's Solution 1,000 ml @ 30 mls/hr Q24H IV ; Start 05/24/19 at 07:00; Stop 05/24/19 at 18:59 Lidocaine HCl (Xylocaine-Mpf 1% 2ml Vial) 2 ml PRN 1X PRN ID PRIOR TO IV START; Start 05/24/19 at 07:00; Stop 05/24/19 at 20:00 Hydromorphone HCl (Dilaudid) 0.5 mg PRN Q10MIN PRN IV SEV PAIN, Second choice; Start 05/24/19 at 07:00; Stop 05/24/19 at 20:00 Prochlorperazine Edisylate (Compazine) 5 mg PACU PRN PRN IV NAUSEA, MRX1; Start 05/24/19 at 07:00; Stop 05/24/19 at 20:00 Active Scripts Active Clopidogrel (Clopidogrel Bisulfate) 75 Mg Tablet 75 Mg PO DAILYWBKFT Children's Aspirin (Aspirin) 81 Mg Tab.chew 81 Mg PO DAILYWBKFT Atorvastatin Calcium 40 Mg Tablet 40 Mg PO QHS Reported Zofran (Ondansetron Hcl) 4 Mg Tablet 1 Tab PO Q6HRS Jardiance (Empagliflozin) 10 Mg Tablet 10 Mg PO DAILY PRN Gabapentin 600 Mg Tablet 300 Mg PO HS Famotidine 20 Mg Tablet 20 Mg PO BID Furosemide 40 Mg Tablet 1 Tab PO DAILY Cialis (Tadalafil) 5 Mg Tablet 2.5 Mg PO DAILY Lantus Solostar (Insulin Glargine,Hum.rec.anlog) 100 Unit/1 Ml Insuln.pen 45 Unit SQ QHS Metformin Hcl 1,000 Mg Tablet 1,000 Mg PO BIDWMEALS Vitals/I & O Vital Sign - Last 24 Hours 05/23/19 05/23/19 05/23/19 05/23/19 11:00 15:00 19:00 19:50 Temp 98.5 99.2 99.1 98.5 99.2 99.1 Pulse 67 68 61 Resp 18 18 18 B/P (MAP) 103/63 (76) 109/58 (75) 114/60 (78) Pulse Ox 92 95 95 O2 Delivery Room Air Room Air Room Air Room Air 05/23/19 05/23/19 05/24/19 05/24/19 21:48 23:00 01:00 03:00 Temp 98.7 98.6 98.7 98.6 Pulse 71 52 Resp 18 18 B/P (MAP) 126/64 (84) 106/47 (66) Pulse Ox 94 92 O2 Delivery Room Air Room Air Room Air Room Air 05/24/19 07:00 Temp 98.3 98.3 Pulse 62 Resp 14 B/P (MAP) 104/64 (77) Pulse Ox 96 O2 Delivery Room Air Intake and Output 05/23/19 05/23/19 05/24/19 15:00 23:00 07:00 Intake Total 300 ml 300 ml Output Total 300 ml 600 ml Balance 300 ml 0 ml -600 ml JAKOB ROJAS MD May 24, 2019 09:03
[2019-05-24] MEDS: VANCOMYCIN 1.75 GM in IV NORMAL SALINE 500ML BAG 500 ML IV SCH ×2 (09:43→21:42)
[2019-05-24] MEDS: VANCOMYCIN PER PHARMACY MC PRN ×2 (10:33→10:58)
[2019-05-24] MEDS ORDERED: PHENYLEPHRINE in 0.9% NACL PF 1 MG/10 ML SYRINGE. IV ONE (11:28)
[2019-05-24] MEDS ORDERED: fentaNYL PF VIAL 100 MCG/2 ML VIAL ONE (11:34)
[2019-05-24] MEDS ORDERED: PROPOFOL 20 ML IV ONE (11:41)
[2019-05-24] MEDS ORDERED: SEVOFLURANE 61 TO 120 MINUTES. IH ONE (11:41)
[2019-05-24] MEDS ORDERED: LIDOCAINE 2% PF 5 ML VIAL. ONE (11:41)
[2019-05-24] MEDS ORDERED: ONDANSETRON PF 4 MG/2 ML VIAL. ONE (11:41)
[2019-05-24] MEDS ORDERED: ePHEDrine PF IN SALINE 50 MG/10 ML SYRINGE. IV ONE (11:46)
--- NOTE | 2019-05-24 11:58 | PDOC4 ---
Operative Note Operative Note Date of procedure: 05/24/2019 Surgeon: Fidel Henderson Asst.: None Preoperative diagnosis: #1 left foot infection #2 left fifth toenail avulsion Postoperative diagnosis: Same Procedures performed: #1 irrigation and debridement, excisional, skin and subcutaneous tissue left foot wound #2 application of wound VAC to wound less than 25 cm� #3 removal left fifth toenail Anesthesia: Gen. Competitions: None Specimens: Tissue and swabs taken from site of infection for culture Findings: Near complete a avulsion of the fifth toenail 3 punctate wounds dorsal medial distal first metatarsal connected to plantar foot wound, approximately a square centimeter at the plantar wound. There was some gross purulence encountered during surgery as well. Tourniquet time: Less than 30 minutes Complications: None Reason for procedure: Patient is very pleasant 59-year-old gentleman who has has to seems, consult dictation for his left foot wound. Please see my consult note for this details. He also requested that I remove his toenail. I discussed the risks, benefits, and alternatives to the above surgery with him and he elected to proceed. Description of procedure: Patient was greeted in the preoperative holding area by myself for the correct extremity was verified and marked. He was taken back to the operative suite, maintaining on his scheduled antibiotics. Once in the operating room, he was transferred gently supine to the operating table and secured the bed with all pressure points padded. He had successful induction of a general anesthetic. Nonsterile tourniquet was taped in place to his left upper thigh. Left lower extremity was prepped and draped in our usual sterile fashion using Betadine paint. We then conducted our standard preoperative timeout. I then began the procedure by exploring the wounds with a hemostat and realized these wounds all connected as I had suspected. I then used a Rominger to debride the skin and unhealthy subcutaneous tissue as well as the callus plantarly. I then took my specimens as above. After a thorough debridement I then irrigated these wounds out using about 2000 mL of sterile saline. Given the swelling, space, and an that these wounds connected, elected to place a wound VAC sponge from plantar to connect the dorsal medial wounds. One sponge was in place. I secured this with the adhesive and then created a subcutaneous tunnel to the vacuum suction apparatus over his distal anteromedial calf region. The wound VAC was turned on and I made sure that it had a good seal which it did. After this, the leg was cleansed and dried and he was awakened from anesthesia and transferred gently supine to the recovery room cart and taken to the PACU in a stable and x-ray condition. Postoperative plan will be to ask wound care to facilitate VAC changes. He'll be readmitted to the floor under the care of the hospitalist. Antibiotics per infectious disease. FIDEL HENDERSON II, MD May 24, 2019 11:58
--- NOTE | 2019-05-24 12:43 | NUR ---
Pt returned to room from recovery. He is alert, yet drowsy. Spouse in room. Clear liquid tray ordered.
[2019-05-24] MEDS: LACTOBACILLUS RHAMNOSUS GG 1 CAPSULE. PO SCH ×2 (13:19→21:41)
[2019-05-24] MEDS: MULTIVITAMIN with MINERAL TABLET. PO SCH (13:20)
[2019-05-24] MEDS: POTASSIUM CHLORIDE 20 MEQ TABLET.ER. PO SCH (13:20)
[2019-05-24] MEDS: ENOXAPARIN 40 MG/0.4 ML SYRINGE. SQ SCH (21:00)
[2019-05-24] MEDS: ATORVASTATIN CALCIUM 40 MG TABLET. PO SCH (21:41)
[2019-05-24] MEDS: INSULIN GLARGINE SYRINGE. SQ SCH (21:49)
[2019-05-24] MEDS: traMADol 50 MG TABLET PO PRN (21:57)
--- NOTE | 2019-05-25 01:27 | NUR ---
Pt pulled the attachment tubbing from wound vac off. RN was able to reinforced dressing and minimal leakage. Wound vac is up and running again with no problem. Will continue to monitor pt closely.
[2019-05-25 03:00] VITALS: BP 121/68
[2019-05-25] MEDS: ceFAZolin SODIUM IV Push 1 GM VIAL. IVP SCH ×3 (05:07→21:14)
[2019-05-25 07:00] VITALS: BP 117/72
[2019-05-25] MEDS: INSULIN LISPRO 300 UNITS/3 ML VIAL. SQ SCH ×4 (07:30→21:24)
[2019-05-25 07:53] LABS: CALCIUM 8.5 mg/dL (8.5-10.1); CREATININE 0.7 mg/dL (0.7-1.3); POTASSIUM 3.8 mmol/L (3.5-5.1)
[2019-05-25] MEDS: MULTIVITAMIN with MINERAL TABLET. PO SCH (07:59)
[2019-05-25] MEDS: POTASSIUM CHLORIDE 20 MEQ TABLET.ER. PO SCH (07:59)
[2019-05-25] MEDS: LACTOBACILLUS RHAMNOSUS GG 1 CAPSULE. PO SCH ×2 (07:59→21:13)
--- NOTE | 2019-05-25 10:01 | PDOC ---
ORTHO PROGRESS NOTES Subjective The patient has a lot of concerns today with how he is going to be able to get around, work, and help take care of others Vitals Vital Signs Date Time Temp Pulse Resp B/P (MAP) Pulse Ox O2 Delivery O2 Flow Rate FiO2 05/25/19 07:00 98.1 58 16 117/72 (87) 94 Room Air 98.1 05/24/19 11:57 8 Labs Laboratory Tests Test 05/23/19 11:12 05/23/19 16:53 05/23/19 20:54 05/24/19 05:10 Glucose (Fingerstick) 169 mg/dL (70-99) 209 mg/dL (70-99) 163 mg/dL (70-99) Sodium Level 139 mmol/L (136-145) Potassium Level 3.6 mmol/L (3.5-5.1) Chloride Level 103 mmol/L (98-107) Carbon Dioxide Level 30 mmol/L (21-32) Anion Gap 6 (6-14) Blood Urea Nitrogen 14 mg/dL (8-26) Creatinine 1.0 mg/dL (0.7-1.3) Estimated GFR (Cockcroft-Gault) 76.2 Glucose Level 101 mg/dL (70-99) Calcium Level 8.9 mg/dL (8.5-10.1) Vancomycin Level Trough 7.2 mcg/mL (10.0-20.0) Vancomycin Last Dose Date 05/23/19 Vancomycin Last Dose Time 1222 Test 05/24/19 07:10 05/24/19 09:10 05/24/19 13:00 05/24/19 16:57 Glucose (Fingerstick) 107 mg/dL (70-99) 125 mg/dL (70-99) 128 mg/dL (70-99) Lactic Acid Level 0.6 mmol/L (0.4-2.0) Test 05/24/19 20:15 05/25/19 07:00 05/25/19 07:22 Glucose (Fingerstick) 241 mg/dL (70-99) 116 mg/dL (70-99) Sodium Level 140 mmol/L (136-145) Potassium Level 3.8 mmol/L (3.5-5.1) Chloride Level 106 mmol/L (98-107) Carbon Dioxide Level 28 mmol/L (21-32) Anion Gap 6 (6-14) Blood Urea Nitrogen 10 mg/dL (8-26) Creatinine 0.7 mg/dL (0.7-1.3) Estimated GFR (Cockcroft-Gault) 115.0 Glucose Level 115 mg/dL (70-99) Calcium Level 8.5 mg/dL (8.5-10.1) Laboratory Tests Test 05/24/19 13:00 05/24/19 16:57 05/24/19 20:15 05/25/19 07:00 Glucose (Fingerstick) 125 mg/dL (70-99) 128 mg/dL (70-99) 241 mg/dL (70-99) Sodium Level 140 mmol/L (136-145) Potassium Level 3.8 mmol/L (3.5-5.1) Chloride Level 106 mmol/L (98-107) Carbon Dioxide Level 28 mmol/L (21-32) Anion Gap 6 (6-14) Blood Urea Nitrogen 10 mg/dL (8-26) Creatinine 0.7 mg/dL (0.7-1.3) Estimated GFR (Cockcroft-Gault) 115.0 Glucose Level 115 mg/dL (70-99) Calcium Level 8.5 mg/dL (8.5-10.1) Test 05/25/19 07:22 Glucose (Fingerstick) 116 mg/dL (70-99) Notes He is awake and alert and sitting in a chair. Wound VAC is in place with a good seal Assessment and Plan I am okay if he uses an offloading shoe when absolutely necessary. I did discuss with him that it'll be best to remain nonweightbearing left lower extremity to allow his wounds to heal. MATEUSZ HENDERSON II, MD May 25, 2019 10:01
[2019-05-25 11:00] VITALS: BP 122/69
--- NOTE | 2019-05-25 11:48 | PDOC ---
PROGRESS NOTES Chief Complaint Chief Complaint A/P: LLE cellulitis and abscess - small abscess, negative for osteomyelitis. Will obtain blood cultures, cont empiric vancomycin and cefazolin. Elevate extremity. Tylenol for fever. Will check arterial flow Left great toe diabetic ulcer - x2, will have wound care to see,. antibiotics as above Hypokalemia - will replace, check mag JERI - likely vasomotor from vomiting episodes, will give IVF hydration HTN - will monitor BP CAD (s/p COLE to RCA in 2016) - stable. Has been on ASA Diabetes-Type II - on metformin, will place on sliding scale basal bolus plus regimen in house Smoker - counseled on cessation hypokalemia FEN - ADA diet PPX - Lovenox FULL CODE Inpatient for cellulitis and abscess with diabetic foot. History of Present Illness History of Present Illness Mr Echavarria is a 59yo M w/ PMHx HTN, CAD (s/p COLE to RCA in 2016), Diabetes-Type II, smoker who presents with complaining of left leg swelling and redness. Patient states he has had chronic left leg ulcer for several months that has been getting regular care at the [facility], but suddenly began getting worse for the last 3-4 days and for the last 24 hours has large erythema and ed malachi with fever and chills, pain, weakness. Patient states he had episode of nausea and vomiting started 4 days ago and felt better with Zofran given by his primary care physician previously. Patient denies chest pain, diarrhea and constipation, urinary symptom, shortness of breath. He had venous doppler negative for DVT and Xray that does not show osteomyelitis, WBC elevated at 11.4. Cr 1.3, potassium 3.4. Arterial dopplers negative for impeded flow. Ortho consulted for possible I&D 05/24: Cellulitic area improved. NPO for surgical I&D. Potassium a bit low. Denies SOB or CP. POD #1 s/p irrigation and debridement, excisional, skin and subcutaneous tissue left foot wound with wound vac placement and removal of left 5th toenail. Denies CP and SOB. K a bit better. Wound vac has no suction currently, he accidently removed some of the adhesive. 38 min pt exam, chart review, > 50% of time spent with exam, chart review, pt care coordination Vitals Vitals Vital Signs Date Time Temp Pulse Resp B/P (MAP) Pulse Ox O2 Delivery O2 Flow Rate FiO2 05/25/19 07:00 98.1 58 16 117/72 (87) 94 Room Air 98.1 05/24/19 11:57 8 Physical Exam General: Alert, Oriented X3 Heart: Regular rate Lungs: Clear Abdomen: Soft, No tenderness Extremities: No edema, Normal pulses Skin: Other (As above) Labs LABS Laboratory Tests Test 05/24/19 13:00 05/24/19 16:57 05/24/19 20:15 05/25/19 07:00 Glucose (Fingerstick) 125 mg/dL (70-99) 128 mg/dL (70-99) 241 mg/dL (70-99) Sodium Level 140 mmol/L (136-145) Potassium Level 3.8 mmol/L (3.5-5.1) Chloride Level 106 mmol/L (98-107) Carbon Dioxide Level 28 mmol/L (21-32) Anion Gap 6 (6-14) Blood Urea Nitrogen 10 mg/dL (8-26) Creatinine 0.7 mg/dL (0.7-1.3) Estimated GFR (Cockcroft-Gault) 115.0 Glucose Level 115 mg/dL (70-99) Calcium Level 8.5 mg/dL (8.5-10.1) Test 05/25/19 07:22 05/25/19 11:03 Glucose (Fingerstick) 116 mg/dL (70-99) 181 mg/dL (70-99) Assessment and Plan Assessmemt and Plan Problems Medical Problems: (1) Diabetic foot ulcer Status: Acute (2) Hypokalemia Status: Acute (3) Left leg cellulitis Status: Acute (4) Nausea and vomiting Status: Acute (5) Uncontrolled diabetes mellitus Status: Acute Comment Review of Relevant I have reviewed the following items bhanu (where applicable) has been applied. Labs Laboratory Tests Test 05/23/19 16:53 05/23/19 20:54 05/24/19 05:10 05/24/19 07:10 Glucose (Fingerstick) 209 mg/dL (70-99) 163 mg/dL (70-99) 107 mg/dL (70-99) Sodium Level 139 mmol/L (136-145) Potassium Level 3.6 mmol/L (3.5-5.1) Chloride Level 103 mmol/L (98-107) Carbon Dioxide Level 30 mmol/L (21-32) Anion Gap 6 (6-14) Blood Urea Nitrogen 14 mg/dL (8-26) Creatinine 1.0 mg/dL (0.7-1.3) Estimated GFR (Cockcroft-Gault) 76.2 Glucose Level 101 mg/dL (70-99) Calcium Level 8.9 mg/dL (8.5-10.1) Vancomycin Level Trough 7.2 mcg/mL (10.0-20.0) Vancomycin Last Dose Date 05/23/19 Vancomycin Last Dose Time 1222 Test 05/24/19 09:10 05/24/19 13:00 05/24/19 16:57 05/24/19 20:15 Lactic Acid Level 0.6 mmol/L (0.4-2.0) Glucose (Fingerstick) 125 mg/dL (70-99) 128 mg/dL (70-99) 241 mg/dL (70-99) Test 05/25/19 07:00 05/25/19 07:22 05/25/19 11:03 Sodium Level 140 mmol/L (136-145) Potassium Level 3.8 mmol/L (3.5-5.1) Chloride Level 106 mmol/L (98-107) Carbon Dioxide Level 28 mmol/L (21-32) Anion Gap 6 (6-14) Blood Urea Nitrogen 10 mg/dL (8-26) Creatinine 0.7 mg/dL (0.7-1.3) Estimated GFR (Cockcroft-Gault) 115.0 Glucose Level 115 mg/dL (70-99) Calcium Level 8.5 mg/dL (8.5-10.1) Glucose (Fingerstick) 116 mg/dL (70-99) 181 mg/dL (70-99) Laboratory Tests Test 05/24/19 13:00 05/24/19 16:57 05/24/19 20:15 05/25/19 07:00 Glucose (Fingerstick) 125 mg/dL (70-99) 128 mg/dL (70-99) 241 mg/dL (70-99) Sodium Level 140 mmol/L (136-145) Potassium Level 3.8 mmol/L (3.5-5.1) Chloride Level 106 mmol/L (98-107) Carbon Dioxide Level 28 mmol/L (21-32) Anion Gap 6 (6-14) Blood Urea Nitrogen 10 mg/dL (8-26) Creatinine 0.7 mg/dL (0.7-1.3) Estimated GFR (Cockcroft-Gault) 115.0 Glucose Level 115 mg/dL (70-99) Calcium Level 8.5 mg/dL (8.5-10.1) Test 05/25/19 07:22 05/25/19 11:03 Glucose (Fingerstick) 116 mg/dL (70-99) 181 mg/dL (70-99) Microbiology 05/24/19 Blood Culture - Preliminary, Resulted NO GROWTH AFTER 1 DAY Medications Current Medications Sodium Chloride 1,000 ml @ 1,000 mls/hr 1X ONCE IV Last administered on 05/22/19at 17:18; Start 05/22/19 at 17:00; Stop 05/22/19 at 17:59; Status DC Ondansetron HCl (Zofran) 4 mg 1X ONCE IV Last administered on 05/22/19at 17:18; Start 05/22/19 at 17:00; Stop 05/22/19 at 17:07; Status DC Cefazolin Sodium 50 ml @ 100 mls/hr 1X ONCE IV Last administered on 05/22/19at 17:57; Start 05/22/19 at 17:00; Stop 05/22/19 at 17:29; Status DC Vancomycin HCl 250 ml @ 250 mls/hr 1X ONCE IV ; Start 05/22/19 at 17:00; Stop 05/22/19 at 17:59; Status UNV Vancomycin HCl 2 gm/Sodium Chloride 500 ml @ 250 mls/hr 1X ONCE IV Last administered on 05/22/19at 18:32; Start 05/22/19 at 17:15; Stop 05/22/19 at 19:14; Status DC Insulin Human Lispro (HumaLOG) 0-7 UNITS TIDACHC SQ Last administered on 05/24/19at 21:50; Start 05/22/19 at 21:00 Dextrose (Dextrose 50%-Water Syringe) 12.5 gm PRN Q15MIN PRN IV SEE COMMENTS; Start 05/22/19 at 19:45 Dextrose 250 ml PRN Q15MIN PRN IV SEE COMMENTS; Start 05/22/19 at 19:45 Atorvastatin Calcium (Lipitor) 40 mg QHS PO Last administered on 05/24/19 21:42; Start 05/22/19 at 21:00 Insulin Glargine (Lantus Syringe) 15 unit QHS SQ ; Start 05/22/19 at 21:00; Stop 05/22/19 at 21:16; Status DC Cefazolin Sodium 1 gm/Dextrose 50 ml @ 100 mls/hr Q8HRS IV ; Start 05/22/19 at 22:00; Stop 05/22/19 at 21:12; Status DC Vancomycin HCl (Vanco Per Pharmacy) 1 each PRN DAILY PRN MC SEE COMMENTS Last administered on 05/24/19 10:58; Start 05/22/19 at 19:45 Enoxaparin Sodium (Lovenox 40mg Syringe) 40 mg Q24H SQ Last administered on 05/23/19 21:44; Start 05/22/19 at 21:00 Insulin Glargine (Lantus Syringe) 45 unit QHS SQ Last administered on 05/24/19at 21:50; Start 05/22/19 at 21:00 Cefazolin Sodium (Ancef) 1 gm Q8HRS IVP Last administered on 05/25/19 05:07; Start 05/22/19 at 22:00 Vancomycin HCl (Vancomycin Trough Level) 1 each 1X ONCE MC Last administered on 05/24/19 12:48; Start 05/24/19 at 06:30; Stop 05/24/19 at 06:31; Status DC Vancomycin HCl 1.75 gm/Sodium Chloride 500 ml @ 250 mls/hr Q18H IV Last administered on 05/24/19 09:43; Start 05/23/19 at 13:00; Stop 05/24/19 at 12:00; Status DC Tramadol HCl (Ultram) 50 mg PRN Q6HRS PRN PO PAIN Last administered on 05/24/19 21:57; Start 05/22/19 at 23:00 Morphine Sulfate (Morphine Sulfate) 2 mg PRN Q4HRS PRN IV PAIN; Start 05/22/19 at 23:00 Lactobacillus Rhamnosus (Culturelle) 1 cap BID PO Last administered on 05/25/19at 08:07; Start 05/23/19 at 21:00 Potassium Chloride (Klor-Con) 40 meq 1X ONCE PO Last administered on 05/23/19at 14:47; Start 05/23/19 at 14:00; Stop 05/23/19 at 14:01; Status DC Potassium Chloride (Klor-Con) 20 meq DAILYWBKFT PO Last administered on 05/25/19at 08:07; Start 05/24/19 at 08:00 Multivitamins (Thera M Plus) 1 tab DAILY PO Last administered on 05/25/19at 08:07; Start 05/23/19 at 14:00 Ondansetron HCl (Zofran) 4 mg PRN Q6HRS PRN IV NAUSEA/VOMITING; Start 05/24/19 at 07:00; Stop 05/24/19 at 20:00; Status DC Fentanyl Citrate (Fentanyl 2ml Vial) 25 mcg PRN Q5MIN PRN IV MILD PAIN 1-3; Start 05/24/19 at 07:00; Stop 05/24/19 at 20:00; Status DC Fentanyl Citrate (Fentanyl 2ml Vial) 50 mcg PRN Q5MIN PRN IV MODERATE TO SEVERE PAIN; Start 05/24/19 at 07:00; Stop 05/24/19 at 20:00; Status DC Morphine Sulfate (Morphine Sulfate) 1 mg PRN Q10MIN PRN IV SEVERE PAIN 7-10; Start 05/24/19 at 07:00; Stop 05/24/19 at 20:00; Status DC Ringer's Solution 1,000 ml @ 30 mls/hr Q24H IV ; Start 05/24/19 at 07:00; Stop 05/24/19 at 18:59; Status DC Lidocaine HCl (Xylocaine-Mpf 1% 2ml Vial) 2 ml PRN 1X PRN ID PRIOR TO IV START; Start 05/24/19 at 07:00; Stop 05/24/19 at 20:00; Status DC Hydromorphone HCl (Dilaudid) 0.5 mg PRN Q10MIN PRN IV SEV PAIN, Second choice; Start 05/24/19 at 07:00; Stop 05/24/19 at 20:00; Status DC Prochlorperazine Edisylate (Compazine) 5 mg PACU PRN PRN IV NAUSEA, MRX1; Start 05/24/19 at 07:00; Stop 05/24/19 at 20:00; Status DC Vancomycin HCl 1.75 gm/Sodium Chloride 500 ml @ 250 mls/hr Q12H IV Last administered on 05/24/19at 21:42; Start 05/24/19 at 22:00 Vancomycin HCl (Vancomycin Trough Level) 1 each 1X ONCE MC ; Start 05/25/19 at 21:30; Stop 05/25/19 at 21:31 Phenylephrine HCl (PHENYLEPHRINE in 0.9% NACL PF) 1 mg STK-MED ONCE IV ; Start 05/24/19 at 11:28; Stop 05/24/19 at 11:28; Status DC Fentanyl Citrate (Fentanyl 2ml Vial) 100 mcg STK-MED ONCE .ROUTE ; Start 05/24/19 at 11:34; Stop 05/24/19 at 11:34; Status DC Propofol 20 ml @ As Directed STK-MED ONCE IV ; Start 05/24/19 at 11:41; Stop 05/24/19 at 11:41; Status DC Lidocaine HCl (Lidocaine Pf 2% Vial) 5 ml STK-MED ONCE .ROUTE ; Start 05/24/19 at 11:41; Stop 05/24/19 at 11:41; Status DC Ondansetron HCl (Zofran) 4 mg STK-MED ONCE .ROUTE ; Start 05/24/19 at 11:41; Stop 05/24/19 at 11:41; Status DC Sevoflurane (Ultane) 60 ml STK-MED ONCE IH ; Start 05/24/19 at 11:41; Stop 05/24/19 at 11:42; Status DC Ephedrine Sulfate (ePHEDrine PF IN SALINE SYRINGE) 50 mg STK-MED ONCE IV ; Start 05/24/19 at 11:46; Stop 05/24/19 at 11:47; Status DC Active Scripts Active Clopidogrel (Clopidogrel Bisulfate) 75 Mg Tablet 75 Mg PO DAILYWBKFT Children's Aspirin (Aspirin) 81 Mg Tab.chew 81 Mg PO DAILYWBKFT Atorvastatin Calcium 40 Mg Tablet 40 Mg PO QHS Reported Zofran (Ondansetron Hcl) 4 Mg Tablet 1 Tab PO Q6HRS Jardiance (Empagliflozin) 10 Mg Tablet 10 Mg PO DAILY PRN Gabapentin 600 Mg Tablet 300 Mg PO HS Famotidine 20 Mg Tablet 20 Mg PO BID Furosemide 40 Mg Tablet 1 Tab PO DAILY Cialis (Tadalafil) 5 Mg Tablet 2.5 Mg PO DAILY Lantus Solostar (Insulin Glargine,Hum.rec.anlog) 100 Unit/1 Ml Insuln.pen 45 Unit SQ QHS Metformin Hcl 1,000 Mg Tablet 1,000 Mg PO BIDWMEALS Vitals/I & O Vital Sign - Last 24 Hours 05/24/19 05/24/19 05/24/19 05/24/19 11:57 11:57 12:12 12:27 Temp 98.0 98.0 98.0 98.0 Pulse 75 78 71 Resp 16 18 16 B/P (MAP) 111/71 149/74 133/77 Pulse Ox 98 94 94 O2 Delivery Mask Simple Mask Room Air Room Air O2 Flow Rate 8 8 05/24/19 05/24/19 05/24/19 05/24/19 12:30 12:37 12:52 13:06 Temp 97.9 97.9 Pulse 75 48 72 B/P (MAP) 127/71 (89) 119/67 (84) 123/72 (89) Pulse Ox 92 94 94 O2 Delivery Room Air Room Air Room Air Room Air 05/24/19 05/24/19 05/24/19 05/24/19 13:37 15:00 19:00 20:00 Temp 97.9 99.3 97.9 99.3 Pulse 61 69 74 Resp 16 16 B/P (MAP) 107/69 (82) 128/67 (87) 119/68 (85) Pulse Ox 95 96 95 O2 Delivery Room Air Room Air Room Air Room Air 05/24/19 05/24/19 05/24/19 05/25/19 21:57 23:00 23:03 03:00 Temp 97.7 98.6 97.7 98.6 Pulse 70 62 Resp 16 16 B/P (MAP) 121/48 (72) 121/68 (85) Pulse Ox 95 96 95 98 O2 Delivery Room Air Room Air Room Air Room Air 05/25/19 07:00 Temp 98.1 98.1 Pulse 58 Resp 16 B/P (MAP) 117/72 (87) Pulse Ox 94 O2 Delivery Room Air Intake and Output 05/24/19 05/24/19 05/25/19 15:00 23:00 07:00 Intake Total 500 ml 450 ml 1340 ml Output Total 235 ml 200 ml 1000 ml Balance 265 ml 250 ml 340 ml JAKOB ROJAS MD May 25, 2019 11:48
[2019-05-25] MEDS: VANCOMYCIN PER PHARMACY MC PRN (11:59)
[2019-05-25] MEDS: VANCOMYCIN 1.75 GM in IV NORMAL SALINE 500ML BAG 500 ML IV SCH ×2 (12:58→22:49)
[2019-05-25 15:00] VITALS: BP 113/63
[2019-05-25 19:00] VITALS: BP 91/44
[2019-05-25] MEDS: ATORVASTATIN CALCIUM 40 MG TABLET. PO SCH (21:11)
[2019-05-25] MEDS: ENOXAPARIN 40 MG/0.4 ML SYRINGE. SQ SCH (21:13)
[2019-05-25] MEDS: INSULIN GLARGINE SYRINGE. SQ SCH (21:23)
[2019-05-25 22:00] LABS: VANC TR 15.1 mcg/mL (10.0-20.0)
[2019-05-25 22:57] VITALS: BP 131/74
[2019-05-26] MEDS: VANCOMYCIN PER PHARMACY MC PRN ×3 (00:49→15:31)
--- NOTE | 2019-05-26 00:52 | NUR ---
Pharmacy Vancomycin Dosing Note S: Consulted to monitor and dose vancomycin started 05/22/19. O: JAKOB PIZANO is a 59 year old M with Cellulitis, DIABETIC FOOT ULCER . Other Antibiotics: CEFAZOLIN 1GM IV Q8H () LABS: Last BUN: 10 Last Creatinine: 0.7 Creatinine Clearance: 143 mL/min Last WBC: 9.8 Last Procalcitonin: Tmax (past 24 hours): 98.1 Microbiology: 05/22 BLOOD: G+C IN CLUSTERSS (1 OF 4) I/O: 2290/1435 Drug Levels: Last Trough level: 15.1 on 05/25/19 at 2130 Last dose given 05/25/19 at 1258 Vancomycin Dosing: Dosing Weight: Actual Target Trough: 10-20 A: Based on: Trough, Actual Wt and CrCl P: 1. 05/25/19 2249 Vancomycin 1750 mg IV q12h dose given 2. Follow up Random level on 05/26/19 at 1000 3. Pharmacy will continue to monitor, follow and adjust therapy as needed. ROMA ORDONEZ RPH, 05/26/19 0052 Signed: 05/26/19 at 0055 by ROMA ORDONEZ RPH PHA
[2019-05-26] MEDS: traMADol 50 MG TABLET PO PRN (00:59)
[2019-05-26 02:57] VITALS: BP 123/69
[2019-05-26] MEDS: ceFAZolin SODIUM IV Push 1 GM VIAL. IVP SCH ×3 (06:09→22:22)
[2019-05-26 07:00] VITALS: BP 122/69
[2019-05-26] MEDS: INSULIN LISPRO 300 UNITS/3 ML VIAL. SQ SCH ×4 (07:30→21:00)
--- NOTE | 2019-05-26 08:11 | PDOC ---
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 Procedure I & D left foot wound with wound vac placement Vitals Vital Signs Date Time Temp Pulse Resp B/P (MAP) Pulse Ox O2 Delivery O2 Flow Rate FiO2 05/26/19 07:10 Room Air 05/26/19 07:00 98.2 67 16 122/69 (86) 94 98.2 05/25/19 08:00 8.0 Labs Laboratory Tests Test 05/24/19 09:10 05/24/19 13:00 05/24/19 16:57 05/24/19 20:15 Lactic Acid Level 0.6 mmol/L (0.4-2.0) Glucose (Fingerstick) 125 mg/dL (70-99) 128 mg/dL (70-99) 241 mg/dL (70-99) Test 05/25/19 07:00 05/25/19 07:22 05/25/19 11:03 05/25/19 16:23 Sodium Level 140 mmol/L (136-145) Potassium Level 3.8 mmol/L (3.5-5.1) Chloride Level 106 mmol/L (98-107) Carbon Dioxide Level 28 mmol/L (21-32) Anion Gap 6 (6-14) Blood Urea Nitrogen 10 mg/dL (8-26) Creatinine 0.7 mg/dL (0.7-1.3) Estimated GFR (Cockcroft-Gault) 115.0 Glucose Level 115 mg/dL (70-99) Calcium Level 8.5 mg/dL (8.5-10.1) Glucose (Fingerstick) 116 mg/dL (70-99) 181 mg/dL (70-99) 182 mg/dL (70-99) Test 05/25/19 20:58 05/25/19 21:35 05/26/19 07:28 Glucose (Fingerstick) 212 mg/dL (70-99) 104 mg/dL (70-99) Vancomycin Level Trough 15.1 mcg/mL (10.0-20.0) Vancomycin Last Dose Date Unk Vancomycin Last Dose Time Unk Laboratory Tests Test 05/25/19 11:03 05/25/19 16:23 05/25/19 20:58 05/25/19 21:35 Glucose (Fingerstick) 181 mg/dL (70-99) 182 mg/dL (70-99) 212 mg/dL (70-99) Vancomycin Level Trough 15.1 mcg/mL (10.0-20.0) Vancomycin Last Dose Date Unk Vancomycin Last Dose Time Unk Test 05/26/19 07:28 Glucose (Fingerstick) 104 mg/dL (70-99) Notes awake and alert Assessment and Plan Patient is postop from I&D of longstanding left foot wound from diabetic complications Wound vac to be replaced prior to discharge patient moving toes and foot on request. ok to d/c home when medically stable per ortho standpoint with wound vac non weight bearing L LE follow up in clinic in 10-14 days call for appt. . MATEUSZ HENDERSON II, MD 05/26/19 0947: IRENA GARCIAS APRN May 26, 2019 08:11 MATEUSZ HENDERSON II, MD May 26, 2019 09:47
[2019-05-26] MEDS: LACTOBACILLUS RHAMNOSUS GG 1 CAPSULE. PO SCH ×2 (08:43→21:30)
[2019-05-26] MEDS: MULTIVITAMIN with MINERAL TABLET. PO SCH (08:43)
[2019-05-26] MEDS: POTASSIUM CHLORIDE 20 MEQ TABLET.ER. PO SCH (08:43)
[2019-05-26] MEDS ORDERED: VANCOMYCIN RANDOM LEVEL. MC ONE (10:00)
[2019-05-26 11:00] VITALS: BP 142/78
[2019-05-26 11:06] LABS: CREATININE 0.7 mg/dL (0.7-1.3)
--- NOTE | 2019-05-26 11:17 | NUR ---
Spoke with SUZIE Crain, Re; [place] being off. Breann stated to put on a wet to dry drsg. Wet to dry drsg applied. Pharmacy also notified of Olesya osorio 13.1.
[2019-05-26] MEDS: VANCOMYCIN 1.75 GM in IV NORMAL SALINE 500ML BAG 500 ML IV SCH ×2 (11:20→22:22)
--- NOTE | 2019-05-26 11:23 | PDOC ---
PROGRESS NOTES Chief Complaint Chief Complaint A/P: LLE cellulitis and abscess - small abscess, negative for osteomyelitis. Will obtain blood cultures, cont empiric vancomycin and cefazolin. Elevate extremity. Tylenol for fever. Will check arterial flow Left great toe diabetic ulcer - x2, will have wound care to see,. antibiotics as above Hypokalemia - will replace, check mag JERI - likely vasomotor from vomiting episodes, will give IVF hydration HTN - will monitor BP CAD (s/p COLE to RCA in 2016) - stable. Has been on ASA Diabetes-Type II - on metformin, will place on sliding scale basal bolus plus regimen in house Smoker - counseled on cessation hypokalemia SEPSIS FEN - ADA diet PPX - Lovenox FULL CODE Inpatient for cellulitis and abscess with diabetic foot .Wound vac to be replaced prior to discharge GRAM POSITIVE COCCI IN CLUSTERS 2 SETS DRAWN, 1 OF 4 POSITIVE SPECIMEN SENDING TO LAB [facility] FOR FURTHER WORK UP 38 min pt exam, chart review, > 50% of time spent with exam, chart review, pt care coordination History of Present Illness History of Present Illness Mr Echavarria is a 59yo M w/ PMHx HTN, CAD (s/p COLE to RCA in 2016), Diabetes-Type II, smoker who presents with complaining of left leg swelling and redness. Patient states he has had chronic left leg ulcer for several months that has been getting regular care at the [facility], but suddenly began getting worse for the last 3-4 days and for the last 24 hours has large erythema and edema with fever and chills, pain, weakness. Patient states he had episode of nausea and vomiting started 4 days ago and felt better with Zofran given by his primary care physician previously. Patient denies chest pain, diarrhea and constipation, urinary symptom, shortness of breath. He had venous doppler negative for DVT and Xray that does not show osteomyelitis, WBC elevated at 11.4. Cr 1.3, potassium 3.4. Arterial dopplers negative for impeded flow. Ortho consulted for possible I&D 05/24: Cellulitic area improved. NPO for surgical I&D. Potassium a bit low. Denies SOB or CP. POD #2 s/p irrigation and debridement, excisional, skin and subcutaneous tissue left foot wound with wound vac placement and removal of left 5th toenail. Denies CP and SOB. K a bit better. Wound vac has no suction currently, he accidently removed some of the adhesive. 38 min pt exam, chart review, > 50% of time spent with exam, chart review, pt care coordination Vitals Vitals Vital Signs Date Time Temp Pulse Resp B/P (MAP) Pulse Ox O2 Delivery O2 Flow Rate FiO2 05/26/19 07:10 Room Air 05/26/19 07:00 98.2 67 16 122/69 (86) 94 98.2 05/25/19 08:00 8.0 Physical Exam General: Alert, Oriented X3, Cooperative Heart: Regular rate, Normal S1 Lungs: Clear Abdomen: Soft, No tenderness Extremities: No edema, Normal pulses Skin: Other (As above) Labs LABS SPEC #: [id number] RADHA: 05/22/19 STATUS: COMP REQ #: [id number] RECD: 05/22/[address]: CECY GUO MD SOURCE: BLOOD ENTR: 05/22/[address]: UNKNOWN PCP NAME [facility]: ORDERED: BCULT Procedure Result BLOOD CULTURE Final GRAM POSITIVE COCCI IN CLUSTERS 2 SETS DRAWN, 1 OF 4 POSITIVE SPECIMEN SENDING TO LAB [facility] FOR FURTHER WORK UP CALLED TO DAYANA GLEASON RN IN 4N BY Selin SORENSEN,,[id number] Laboratory Tests Test 05/25/19 16:23 05/25/19 20:58 05/25/19 21:35 05/26/19 07:28 Glucose (Fingerstick) 182 mg/dL (70-99) 212 mg/dL (70-99) 104 mg/dL (70-99) Vancomycin Level Trough 15.1 mcg/mL (10.0-20.0) Vancomycin Last Dose Date Unk Vancomycin Last Dose Time Unk Test 05/26/19 10:15 Blood Urea Nitrogen 8 mg/dL (8-26) Creatinine 0.7 mg/dL (0.7-1.3) Estimated GFR (Cockcroft-Gault) 115.0 Random Vancomycin Level 13.1 mcg/mL Assessment and Plan Assessmemt and Plan Problems Medical Problems: (1) Diabetic foot ulcer Status: Acute (2) Hypokalemia Status: Acute (3) Left leg cellulitis Status: Acute (4) Nausea and vomiting Status: Acute (5) Uncontrolled diabetes mellitus Status: Acute Comment Review of Relevant I have reviewed the following items bhanu (where applicable) has been applied. Labs Laboratory Tests Test 05/24/19 13:00 05/24/19 16:57 05/24/19 20:15 05/25/19 07:00 Glucose (Fingerstick) 125 mg/dL (70-99) 128 mg/dL (70-99) 241 mg/dL (70-99) Sodium Level 140 mmol/L (136-145) Potassium Level 3.8 mmol/L (3.5-5.1) Chloride Level 106 mmol/L (98-107) Carbon Dioxide Level 28 mmol/L (21-32) Anion Gap 6 (6-14) Blood Urea Nitrogen 10 mg/dL (8-26) Creatinine 0.7 mg/dL (0.7-1.3) Estimated GFR (Cockcroft-Gault) 115.0 Glucose Level 115 mg/dL (70-99) Calcium Level 8.5 mg/dL (8.5-10.1) Test 05/25/19 07:22 9/8/19 11:03 05/25/19 16:23 05/25/19 20:58 Glucose (Fingerstick) 116 mg/dL (70-99) 181 mg/dL (70-99) 182 mg/dL (70-99) 212 mg/dL (70-99) Test 05/25/19 21:35 05/26/19 07:28 05/26/19 10:15 Vancomycin Level Trough 15.1 mcg/mL (10.0-20.0) Vancomycin Last Dose Date Unk Vancomycin Last Dose Time Unk Glucose (Fingerstick) 104 mg/dL (70-99) Blood Urea Nitrogen 8 mg/dL (8-26) Creatinine 0.7 mg/dL (0.7-1.3) Estimated GFR (Cockcroft-Gault) 115.0 Random Vancomycin Level 13.1 mcg/mL Laboratory Tests Test 05/25/19 16:23 05/25/19 20:58 05/25/19 21:35 05/26/19 07:28 Glucose (Fingerstick) 182 mg/dL (70-99) 212 mg/dL (70-99) 104 mg/dL (70-99) Vancomycin Level Trough 15.1 mcg/mL (10.0-20.0) Vancomycin Last Dose Date Unk Vancomycin Last Dose Time Unk Test 05/26/19 10:15 Blood Urea Nitrogen 8 mg/dL (8-26) Creatinine 0.7 mg/dL (0.7-1.3) Estimated GFR (Cockcroft-Gault) 115.0 Random Vancomycin Level 13.1 mcg/mL Microbiology 05/24/19 Blood Culture - Preliminary, Resulted NO GROWTH AFTER 2 DAYS Medications Current Medications Sodium Chloride 1,000 ml @ 1,000 mls/hr 1X ONCE IV Last administered on 05/22/19at 17:18; Start 05/22/19 at 17:00; Stop 05/22/19 at 17:59; Status DC Ondansetron HCl (Zofran) 4 mg 1X ONCE IV Last administered on 05/22/19at 17:18; Start 05/22/19 at 17:00; Stop 05/22/19 at 17:07; Status DC Cefazolin Sodium 50 ml @ 100 mls/hr 1X ONCE IV Last administered on 05/22/19at 17:57; Start 05/22/19 at 17:00; Stop 05/22/19 at 17:29; Status DC Vancomycin HCl 250 ml @ 250 mls/hr 1X ONCE IV ; Start 05/22/19 at 17:00; Stop 05/22/19 at 17:59; Status UNV Vancomycin HCl 2 gm/Sodium Chloride 500 ml @ 250 mls/hr 1X ONCE IV Last administered on 05/22/19at 18:32; Start 05/22/19 at 17:15; Stop 05/22/19 at 19:14; Status DC Insulin Human Lispro (HumaLOG) 0-7 UNITS TIDACHC SQ Last administered on at 21:24; Start 05/22/19 at 21:00 Dextrose (Dextrose 50%-Water Syringe) 12.5 gm PRN Q15MIN PRN IV SEE COMMENTS; Start 05/22/19 at 19:45 Dextrose 250 ml PRN Q15MIN PRN IV SEE COMMENTS; Start 05/22/19 at 19:45 Atorvastatin Calcium (Lipitor) 40 mg QHS PO Last administered on 05/25/19at 21:24; Start 05/22/19 at 21:00 Insulin Glargine (Lantus Syringe) 15 unit QHS SQ ; Start 05/22/19 at 21:00; Stop 05/22/19 at 21:16; Status DC Cefazolin Sodium 1 gm/Dextrose 50 ml @ 100 mls/hr Q8HRS IV ; Start 05/22/19 at 22:00; Stop 05/22/19 at 21:12; Status DC Vancomycin HCl (Vanco Per Pharmacy) 1 each PRN DAILY PRN MC SEE COMMENTS Last administered on 05/26/19at 00:49; Start 05/22/19 at 19:45 Enoxaparin Sodium (Lovenox 40mg Syringe) 40 mg Q24H SQ Last administered on 05/25/19 21:24; Start 05/22/19 at 21:00 Insulin Glargine (Lantus Syringe) 45 unit QHS SQ Last administered on 05/25/19 21:24; Start 05/22/19 at 21:00 Cefazolin Sodium (Ancef) 1 gm Q8HRS IVP Last administered on 05/26/19at 06:09; Start 05/22/19 at 22:00 Vancomycin HCl (Vancomycin Trough Level) 1 each 1X ONCE MC Last administered on 05/24/19at 12:48; Start 05/24/19 at 06:30; Stop 05/24/19 at 06:31; Status DC Vancomycin HCl 1.75 gm/Sodium Chloride 500 ml @ 250 mls/hr Q18H IV Last administered on 05/24/19at 09:43; Start 05/23/19 at 13:00; Stop 05/24/19 at 12:00; Status DC Tramadol HCl (Ultram) 50 mg PRN Q6HRS PRN PO PAIN Last administered on 05/26/19at 00:59; Start 05/22/19 at 23:00 Morphine Sulfate (Morphine Sulfate) 2 mg PRN Q4HRS PRN IV PAIN; Start 05/22/19 at 23:00 Lactobacillus Rhamnosus (Culturelle) 1 cap BID PO Last administered on 05/26/19at 08:43; Start 05/23/19 at 21:00 Potassium Chloride (Klor-Con) 40 meq 1X ONCE PO Last administered on 05/23/19at 14:47; Start 05/23/19 at 14:00; Stop 05/23/19 at 14:01; Status DC Potassium Chloride (Klor-Con) 20 meq DAILYWBKFT PO Last administered on 05/26/19at 08:43; Start 05/24/19 at 08:00 Multivitamins (Thera M Plus) 1 tab DAILY PO Last administered on 05/26/19at 08:43; Start 05/23/19 at 14:00 Ondansetron HCl (Zofran) 4 mg PRN Q6HRS PRN IV NAUSEA/VOMITING; Start 05/24/19 at 07:00; Stop 05/24/19 at 20:00; Status DC Fentanyl Citrate (Fentanyl 2ml Vial) 25 mcg PRN Q5MIN PRN IV MILD PAIN 1-3; Start 05/24/19 at 07:00; Stop 05/24/19 at 20:00; Status DC Fentanyl Citrate (Fentanyl 2ml Vial) 50 mcg PRN Q5MIN PRN IV MODERATE TO SEVERE PAIN; Start 05/24/19 at 07:00; Stop 05/24/19 at 20:00; Status DC Morphine Sulfate (Morphine Sulfate) 1 mg PRN Q10MIN PRN IV SEVERE PAIN 7-10; Start 05/24/19 at 07:00; Stop 05/24/19 at 20:00; Status DC Ringer's Solution 1,000 ml @ 30 mls/hr Q24H IV ; Start 05/24/19 at 07:00; Stop 05/24/19 at 18:59; Status DC Lidocaine HCl (Xylocaine-Mpf 1% 2ml Vial) 2 ml PRN 1X PRN ID PRIOR TO IV START; Start 05/24/19 at 07:00; Stop 05/24/19 at 20:00; Status DC Hydromorphone HCl (Dilaudid) 0.5 mg PRN Q10MIN PRN IV SEV PAIN, Second choice; Start 05/24/19 at 07:00; Stop 05/24/19 at 20:00; Status DC Prochlorperazine Edisylate (Compazine) 5 mg PACU PRN PRN IV NAUSEA, MRX1; Start 05/24/19 at 07:00; Stop 05/24/19 at 20:00; Status DC Vancomycin HCl 1.75 gm/Sodium Chloride 500 ml @ 250 mls/hr Q12H IV Last administered on 05/25/19at 22:49; Start 05/24/19 at 22:00 Vancomycin HCl (Vancomycin Trough Level) 1 each 1X ONCE MC Last administered on 05/25/19at 21:55; Start 05/25/19 at 21:30; Stop 05/25/19 at 21:31; Status DC Phenylephrine HCl (PHENYLEPHRINE in 0.9% NACL PF) 1 mg STK-MED ONCE IV ; Start 05/24/19 at 11:28; Stop 05/24/19 at 11:28; Status DC Fentanyl Citrate (Fentanyl 2ml Vial) 100 mcg STK-MED ONCE .ROUTE ; Start 05/24/19 at 11:34; Stop 05/24/19 at 11:34; Status DC Propofol 20 ml @ As Directed STK-MED ONCE IV ; Start 05/24/19 at 11:41; Stop 05/24/19 at 11:41; Status DC Lidocaine HCl (Lidocaine Pf 2% Vial) 5 ml STK-MED ONCE .ROUTE ; Start 05/24/19 at 11:41; Stop 05/24/19 at 11:41; Status DC Ondansetron HCl (Zofran) 4 mg STK-MED ONCE .ROUTE ; Start 05/24/19 at 11:41; Stop 05/24/19 at 11:41; Status DC Sevoflurane (Ultane) 60 ml STK-MED ONCE IH ; Start 05/24/19 at 11:41; Stop 05/24/19 at 11:42; Status DC Ephedrine Sulfate (ePHEDrine PF IN SALINE SYRINGE) 50 mg STK-MED ONCE IV ; Start 05/24/19 at 11:46; Stop 05/24/19 at 11:47; Status DC Vancomycin HCl (Vancomycin Random Level) 1 each 1X ONCE MC Last administered on 05/26/19at 10:48; Start 05/26/19 at 10:00; Stop 05/26/19 at 10:01; Status DC Active Scripts Active Clopidogrel (Clopidogrel Bisulfate) 75 Mg Tablet 75 Mg PO DAILYWBKFT Children's Aspirin (Aspirin) 81 Mg Tab.chew 81 Mg PO DAILYWBKFT Atorvastatin Calcium 40 Mg Tablet 40 Mg PO QHS Reported Zofran (Ondansetron Hcl) 4 Mg Tablet 1 Tab PO Q6HRS Jardiance (Empagliflozin) 10 Mg Tablet 10 Mg PO DAILY PRN Gabapentin 600 Mg Tablet 300 Mg PO HS Famotidine 20 Mg Tablet 20 Mg PO BID Furosemide 40 Mg Tablet 1 Tab PO DAILY Cialis (Tadalafil) 5 Mg Tablet 2.5 Mg PO DAILY Lantus Solostar (Insulin Glargine,Hum.rec.anlog) 100 Unit/1 Ml Insuln.pen 45 Unit SQ QHS Metformin Hcl 1,000 Mg Tablet 1,000 Mg PO BIDWMEALS Vitals/I & O Vital Sign - Last 24 Hours 05/25/19 05/25/19 05/25/19 05/25/19 15:00 19:00 20:00 22:57 Temp 97.9 97.7 98.4 97.9 97.7 98.4 Pulse 67 62 64 Resp 14 18 18 B/P (MAP) 113/63 (80) 91/44 (60) 131/74 (93) Pulse Ox 97 97 98 O2 Delivery Room Air Room Air Room Air Room Air 05/26/19 05/26/19 05/26/19 05/26/19 00:59 02:57 03:02 07:00 Temp 98.2 98.2 98.2 98.2 Pulse 65 67 Resp 20 18 18 16 B/P (MAP) 123/69 (87) 122/69 (86) Pulse Ox 98 93 94 O2 Delivery Room Air Room Air Room Air Room Air 05/26/19 07:10 O2 Delivery Room Air Intake and Output 05/25/19 05/25/19 05/26/19 14:59 22:59 06:59 Intake Total 540 ml 230 ml Balance 540 ml 230 ml MEGHAN HERNANDEZ MD May 26, 2019 11:23
--- NOTE | 2019-05-26 11:25 | NUR ---
SUZIE Crain and SUZIE Cheng WC here to change [place] drsg.
--- NOTE | 2019-05-26 11:53 | NUR ---
SS following for discharge planning. SS reviewed pt chart. Pt is self pay pt. HCFS following for self pay status. Pt is from home and is currently on room air. Pt is currently awaiting half shoe from [facility] at this time. No discharge needs noted at this time. SS will continue to follow for discharge planning.
--- NOTE | 2019-05-26 14:07 | NUR ---
Wound Care Wound care follow up for left foot DFU. Pt had surgery on Sunday with Dr Wilson. Wound is now through and through. Wound vac dressing was removed, wound cleansed, maddie placed into wound and silver foam packed into both dorsal and plantar wounds, vac tracked to left lower medial leg. No other wounds noted. Pt left on back with heel floated. will continue to follow for vac changes changes.
[2019-05-26 15:00] VITALS: BP 133/81
[2019-05-26 16:54] LABS: BASO # 0.1 x10^3/uL (0.0-0.2); BASO % 1 % (0-3); EOS # 0.3 x10^3/uL (0.0-0.7); EOS % 3 % (0-3); HEMATOCRIT 38.9 % (39.0-53.0); HEMOGLOBIN 13.8 g/dL (13.0-17.5); LYMPH # 1.9 x10^3/uL (1.0-4.8); LYMPH % 19 % (24-48); MEAN CORPUSCULAR HEMOGLOBIN 31 pg (25-35); MEAN CORPUSCULAR HGB CONC 35 g/dL (31-37); MEAN CORPUSCULAR VOLUME 88 fL (79-100); MONO # 0.8 x10^3/uL (0.0-1.1); MONO % 8 % (0-9); NEUT # 6.6 x10^3/uL (1.8-7.7); NEUT % 69 % (31-73); PLATELET COUNT 229 x10^3/uL (140-400); RED BLOOD COUNT 4.42 x10^6/uL (4.30-5.70); WHITE BLOOD COUNT 9.6 x10^3/uL (4.0-11.0)
[2019-05-26 17:09] LABS: ALBUMIN 2.6 g/dL (3.4-5.0); ALBUMIN/GLOBULIN RATIO 0.5 (1.0-1.7); CALCIUM 8.8 mg/dL (8.5-10.1); CREATININE 0.8 mg/dL (0.7-1.3); GFR 98.6; POTASSIUM 4.4 mmol/L (3.5-5.1); TOTAL BILIRUBIN 0.6 mg/dL (0.2-1.0); TOTAL PROTEIN 7.4 g/dL (6.4-8.2)
[2019-05-26 19:00] VITALS: BP 152/74
[2019-05-26] MEDS: ATORVASTATIN CALCIUM 40 MG TABLET. PO SCH (21:31)
[2019-05-26] MEDS: ENOXAPARIN 40 MG/0.4 ML SYRINGE. SQ SCH (21:34)
[2019-05-26] MEDS: INSULIN GLARGINE SYRINGE. SQ SCH (21:40)
[2019-05-26 23:00] VITALS: BP 106/64
[2019-05-27 03:00] VITALS: BP 133/54
[2019-05-27] MEDS: ceFAZolin SODIUM IV Push 1 GM VIAL. IVP SCH ×3 (06:31→21:28)
[2019-05-27 07:00] VITALS: BP 121/63
[2019-05-27] MEDS: INSULIN LISPRO 300 UNITS/3 ML VIAL. SQ SCH ×4 (07:30→22:10)
[2019-05-27 08:49] LABS: CREATININE 0.7 mg/dL (0.7-1.3)
[2019-05-27] MEDS: LACTOBACILLUS RHAMNOSUS GG 1 CAPSULE. PO SCH ×2 (09:00→21:24)
[2019-05-27] MEDS: POTASSIUM CHLORIDE 20 MEQ TABLET.ER. PO SCH (09:14)
[2019-05-27] MEDS: MULTIVITAMIN with MINERAL TABLET. PO SCH (09:14)
[2019-05-27] MEDS: VANCOMYCIN 1.75 GM in IV NORMAL SALINE 500ML BAG 500 ML IV SCH ×2 (10:21→21:32)
[2019-05-27 11:00] VITALS: BP 151/65
--- NOTE | 2019-05-27 11:04 | NUR ---
SS following up with discharge planning. PT recommended alf unit. Pt does not qualify for alf unit due to self pay status. Pt will need to discharge to home when ready. SS will continue to follow for discharge planning.
--- NOTE | 2019-05-27 11:12 | SNU/HH DC ---
DISCHARGE WITH HOME HEALTH DISCHARGE INFORMATION: Final Diagnosis: Problems Medical Problems: (1) Diabetic foot ulcer Status: Acute (2) Hypokalemia Status: Acute (3) Left leg cellulitis Status: Acute (4) Nausea and vomiting Status: Acute (5) Uncontrolled diabetes mellitus Status: Acute Condition on Discharge: Stable CODE STATUS: Code Status: Full HOME HEALTH: Face to Face: I certify this patient is under my care and that I, or a nurse practitioner or physician's corporate administrative assistant working with me, had a face to face encounter that meets the physician face to face encounter requirements with this patient on []. Medical Complications: DJD Half-Way For: Assess & Educate Safety RN For Eval/Treatment: Yes Physical Therapy For: Evalulation/Treatment Occupational Therapy For: Evaluation/Treatment Home Health Aide For: Self-care FIELD [employer]PER[employer] MAN For: Community Resources Pt Meets Homebound Status: Poor coordination w/ amb. POST DISCHARGE ORDERS: Activity Instructions for Disc: Activity as tolerated Weight Bearing Status after Di: No restrictions DIET AFTER DISCHARGE: ADA Wound/Incision Care: No wound care needed CHECKS AFTER DISCHARGE: Checks after discharge: Check blood sugar, ac/hs CERTIFICATION STATEMENT: Certification Statement: Certification Statement: Based on the above finding, I certify that this patient is confined to the home and needs intermittent halfway care, physical therapy and/or speech therapy, or continues to need occupational therapy.~ This patient is under my care, and I have initiated the establishment of the plan of care.~ This patient will be followed by myself or a community physician who will periodically review the plan of care. Home Meds Active Scripts Clopidogrel Bisulfate (CLOPIDOGREL) 75 Mg Tablet, 75 MG PO DAILYWBKFT, #30 TAB 3 Refills Prov:LIANE SMITH MD 05/06/16 Aspirin (Children's Aspirin) 81 Mg Tab.chew, 81 MG PO DAILYWBKFT, #30 TAB.CHEW 1 Refill Prov:LIANE SMITH MD 05/06/16 Atorvastatin Calcium (ATORVASTATIN CALCIUM) 40 Mg Tablet, 40 MG PO QHS, #30 1 Refill Prov:LIANE SMITH MD 05/06/16 Reported Medications Ondansetron Hcl (ZOFRAN) 4 Mg Tablet, 1 TAB PO Q6HRS for nausea, #20 TAB 05/22/19 Empagliflozin (Jardiance) 10 Mg Tablet, 10 MG PO DAILY PRN for d, TAB 05/22/19 Gabapentin (GABAPENTIN) 600 Mg Tablet, 300 MG PO HS for NEUROGENIC PAIN, TAB 05/22/19 Famotidine (FAMOTIDINE) 20 Mg Tablet, 20 MG PO BID for acid reflux, TAB 05/22/19 Furosemide (FUROSEMIDE) 40 Mg Tablet, 1 TAB PO DAILY for water pill, #30 TAB 5 Refills 05/22/19 Tadalafil (CIALIS) 5 Mg Tablet, 2.5 MG PO DAILY for erectile dys, TAB 05/22/19 Insulin Glargine,Hum.rec.anlog (LANTUS SOLOSTAR) 100 Unit/1 Ml Insuln.pen, 45 UNIT SQ QHS for dm, #15 ML 3 Refills 05/22/19 Metformin Hcl (METFORMIN HCL) 1,000 Mg Tablet, 1000 MG PO BIDWMEALS for dm, TAB 05/22/19 MALACHI STUART III DO May 27, 2019 11:12
--- NOTE | 2019-05-27 12:05 | PDOC ---
[employer] PROGRESS NOTE Chief Complaint Chief Complaint LLE cellulitis and abscess Left great toe diabetic ulcer JERI HTN CAD Diabetes-Type II Smoker SEPSIS History of Present Illness History of Present Illness 05/27/19 Pt seen and examined Sleeping upon entry, but alert and comfortable once awake DW RN Vitals/I&O Vitals/I&O: Vital Signs Date Time Temp Pulse Resp B/P (MAP) Pulse Ox O2 Delivery O2 Flow Rate FiO2 05/27/19 11:00 98.1 67 18 151/65 (93) 97 Room Air 98.1 I & O 05/26/19 05/26/19 05/27/19 15:00 23:00 07:00 Intake Total 360 ml 300 ml Output Total 250 ml 300 ml 800 ml Balance 110 ml 0 ml -800 ml Physical Exam General: Alert, Oriented X3, Cooperative Heart: Regular rate, Normal S1 Lungs: Clear Abdomen: Soft, No tenderness Extremities: No clubbing, No edema, Normal pulses Skin: No rashes, No significant lesion, Other (As above) Labs Labs: Laboratory Tests Test 05/26/19 16:42 05/26/19 16:50 05/26/19 20:38 05/27/19 06:35 White Blood Count 9.6 x10^3/uL (4.0-11.0) Red Blood Count 4.42 x10^6/uL (4.30-5.70) Hemoglobin 13.8 g/dL (13.0-17.5) Hematocrit 38.9 % (39.0-53.0) Mean Corpuscular Volume 88 fL (79-100) Mean Corpuscular Hemoglobin 31 pg (25-35) Mean Corpuscular Hemoglobin Concent 35 g/dL (31-37) Red Cell Distribution Width 15.0 % (11.5-14.5) Platelet Count 229 x10^3/uL (140-400) Neutrophils (%) (Auto) 69 % (31-73) Lymphocytes (%) (Auto) 19 % (24-48) Monocytes (%) (Auto) 8 % (0-9) Eosinophils (%) (Auto) 3 % (0-3) Basophils (%) (Auto) 1 % (0-3) Neutrophils # (Auto) 6.6 x10^3/uL (1.8-7.7) Lymphocytes # (Auto) 1.9 x10^3/uL (1.0-4.8) Monocytes # (Auto) 0.8 x10^3/uL (0.0-1.1) Eosinophils # (Auto) 0.3 x10^3/uL (0.0-0.7) Basophils # (Auto) 0.1 x10^3/uL (0.0-0.2) Sodium Level 138 mmol/L (136-145) Potassium Level 4.4 mmol/L (3.5-5.1) Chloride Level 102 mmol/L (98-107) Carbon Dioxide Level 31 mmol/L (21-32) Anion Gap 5 (6-14) Blood Urea Nitrogen 10 mg/dL (8-26) Creatinine 0.8 mg/dL (0.7-1.3) 0.7 mg/dL (0.7-1.3) Estimated GFR (Cockcroft-Gault) 98.6 115.0 BUN/Creatinine Ratio 13 (6-20) Glucose Level 174 mg/dL (70-99) Lactic Acid Level 1.4 mmol/L (0.4-2.0) Calcium Level 8.8 mg/dL (8.5-10.1) Total Bilirubin 0.6 mg/dL (0.2-1.0) Aspartate Amino Transf (AST/SGOT) 38 U/L (15-37) Alanine Aminotransferase (ALT/SGPT) 40 U/L (16-63) Alkaline Phosphatase 81 U/L (46-116) Total Protein 7.4 g/dL (6.4-8.2) Albumin 2.6 g/dL (3.4-5.0) Albumin/Globulin Ratio 0.5 (1.0-1.7) Glucose (Fingerstick) 192 mg/dL (70-99) 169 mg/dL (70-99) Test 05/27/19 07:49 Glucose (Fingerstick) 121 mg/dL (70-99) Review of Systems Review of Systems: Denies FAGAN Denies vision change Assessment and Plan Assessmemt and Plan Problems Medical Problems: (1) Diabetic foot ulcer Status: Acute (2) Hypokalemia Status: Acute (3) Left leg cellulitis Status: Acute (4) Nausea and vomiting Status: Acute (5) Uncontrolled diabetes mellitus Status: Acute Assessment LLE cellulitis and abscess Left great toe diabetic ulcer JERI HTN CAD Diabetes-Type II Smoker SEPSIS Plan Wound Care IV ABX DVT prophylaxis Home meds Smoking cessation PT/OT FEN - ADA diet FULL CODE D/C planning once wound vac and medically necessary shoe approved Comment Review of Relevant I have reviewed the following items bhanu (where applicable) has been applied. MALACHI STUART III DO May 27, 2019 12:05
--- NOTE | 2019-05-27 14:33 | PDOC ---
ORTHO PROGRESS NOTES Subjective Patient states feeling ok and awaiting discharge. Post-op Day: 3 Procedure I&D left Foot Vitals Vital Signs Date Time Temp Pulse Resp B/P (MAP) Pulse Ox O2 Delivery O2 Flow Rate FiO2 05/27/19 11:00 98.1 67 18 151/65 (93) 97 Room Air 98.1 Labs Laboratory Tests Test 05/25/19 16:23 05/25/19 20:58 05/25/19 21:35 05/26/19 07:28 Glucose (Fingerstick) 182 mg/dL (70-99) 212 mg/dL (70-99) 104 mg/dL (70-99) Vancomycin Level Trough 15.1 mcg/mL (10.0-20.0) Vancomycin Last Dose Date Unk Vancomycin Last Dose Time Unk Test 05/26/19 10:15 05/26/19 11:06 05/26/19 16:42 05/26/19 16:50 Blood Urea Nitrogen 8 mg/dL (8-26) 10 mg/dL (8-26) Creatinine 0.7 mg/dL (0.7-1.3) 0.8 mg/dL (0.7-1.3) Estimated GFR (Cockcroft-Gault) 115.0 98.6 Random Vancomycin Level 13.1 mcg/mL Glucose (Fingerstick) 167 mg/dL (70-99) 192 mg/dL (70-99) White Blood Count 9.6 x10^3/uL (4.0-11.0) Red Blood Count 4.42 x10^6/uL (4.30-5.70) Hemoglobin 13.8 g/dL (13.0-17.5) Hematocrit 38.9 % (39.0-53.0) Mean Corpuscular Volume 88 fL (79-100) Mean Corpuscular Hemoglobin 31 pg (25-35) Mean Corpuscular Hemoglobin Concent 35 g/dL (31-37) Red Cell Distribution Width 15.0 % (11.5-14.5) Platelet Count 229 x10^3/uL (140-400) Neutrophils (%) (Auto) 69 % (31-73) Lymphocytes (%) (Auto) 19 % (24-48) Monocytes (%) (Auto) 8 % (0-9) Eosinophils (%) (Auto) 3 % (0-3) Basophils (%) (Auto) 1 % (0-3) Neutrophils # (Auto) 6.6 x10^3/uL (1.8-7.7) Lymphocytes # (Auto) 1.9 x10^3/uL (1.0-4.8) Monocytes # (Auto) 0.8 x10^3/uL (0.0-1.1) Eosinophils # (Auto) 0.3 x10^3/uL (0.0-0.7) Basophils # (Auto) 0.1 x10^3/uL (0.0-0.2) Sodium Level 138 mmol/L (136-145) Potassium Level 4.4 mmol/L (3.5-5.1) Chloride Level 102 mmol/L (98-107) Carbon Dioxide Level 31 mmol/L (21-32) Anion Gap 5 (6-14) BUN/Creatinine Ratio 13 (6-20) Glucose Level 174 mg/dL (70-99) Lactic Acid Level 1.4 mmol/L (0.4-2.0) Calcium Level 8.8 mg/dL (8.5-10.1) Total Bilirubin 0.6 mg/dL (0.2-1.0) Aspartate Amino Transf (AST/SGOT) 38 U/L (15-37) Alanine Aminotransferase (ALT/SGPT) 40 U/L (16-63) Alkaline Phosphatase 81 U/L (46-116) Total Protein 7.4 g/dL (6.4-8.2) Albumin 2.6 g/dL (3.4-5.0) Albumin/Globulin Ratio 0.5 (1.0-1.7) Test 05/26/19 20:38 05/27/19 06:35 05/27/19 07:49 05/27/19 10:53 Glucose (Fingerstick) 169 mg/dL (70-99) 121 mg/dL (70-99) 200 mg/dL (70-99) Creatinine 0.7 mg/dL (0.7-1.3) Estimated GFR (Cockcroft-Gault) 115.0 Laboratory Tests Test 05/26/19 16:42 05/26/19 16:50 05/26/19 20:38 05/27/19 06:35 White Blood Count 9.6 x10^3/uL (4.0-11.0) Red Blood Count 4.42 x10^6/uL (4.30-5.70) Hemoglobin 13.8 g/dL (13.0-17.5) Hematocrit 38.9 % (39.0-53.0) Mean Corpuscular Volume 88 fL (79-100) Mean Corpuscular Hemoglobin 31 pg (25-35) Mean Corpuscular Hemoglobin Concent 35 g/dL (31-37) Red Cell Distribution Width 15.0 % (11.5-14.5) Platelet Count 229 x10^3/uL (140-400) Neutrophils (%) (Auto) 69 % (31-73) Lymphocytes (%) (Auto) 19 % (24-48) Monocytes (%) (Auto) 8 % (0-9) Eosinophils (%) (Auto) 3 % (0-3) Basophils (%) (Auto) 1 % (0-3) Neutrophils # (Auto) 6.6 x10^3/uL (1.8-7.7) Lymphocytes # (Auto) 1.9 x10^3/uL (1.0-4.8) Monocytes # (Auto) 0.8 x10^3/uL (0.0-1.1) Eosinophils # (Auto) 0.3 x10^3/uL (0.0-0.7) Basophils # (Auto) 0.1 x10^3/uL (0.0-0.2) Sodium Level 138 mmol/L (136-145) Potassium Level 4.4 mmol/L (3.5-5.1) Chloride Level 102 mmol/L (98-107) Carbon Dioxide Level 31 mmol/L (21-32) Anion Gap 5 (6-14) Blood Urea Nitrogen 10 mg/dL (8-26) Creatinine 0.8 mg/dL (0.7-1.3) 0.7 mg/dL (0.7-1.3) Estimated GFR (Cockcroft-Gault) 98.6 115.0 BUN/Creatinine Ratio 13 (6-20) Glucose Level 174 mg/dL (70-99) Lactic Acid Level 1.4 mmol/L (0.4-2.0) Calcium Level 8.8 mg/dL (8.5-10.1) Total Bilirubin 0.6 mg/dL (0.2-1.0) Aspartate Amino Transf (AST/SGOT) 38 U/L (15-37) Alanine Aminotransferase (ALT/SGPT) 40 U/L (16-63) Alkaline Phosphatase 81 U/L (46-116) Total Protein 7.4 g/dL (6.4-8.2) Albumin 2.6 g/dL (3.4-5.0) Albumin/Globulin Ratio 0.5 (1.0-1.7) Glucose (Fingerstick) 192 mg/dL (70-99) 169 mg/dL (70-99) Test 05/27/19 07:49 05/27/19 10:53 Glucose (Fingerstick) 121 mg/dL (70-99) 200 mg/dL (70-99) Notes alert and oriented Assessment and Plan S/P [id number] left foot wound had been followed by the [facility] for wound care prior to arrival here wound vac in place and working will be followed at [facility] for wound vac changes follow up in clinic in 10-14 days, call for appt. IRENA GARCIAS APRN May 27, 2019 14:33
[2019-05-27 15:00] VITALS: BP 136/80
[2019-05-27] MEDS: VANCOMYCIN PER PHARMACY MC PRN (15:29)
--- NOTE | 2019-05-27 16:00 | NUR ---
Wound Care Pt has been approved for [facility] vac, when ready for discharge. WCRNs will see pt in Outpt Dept for vac changes after discharge.
[2019-05-27 19:20] VITALS: BP 141/66
[2019-05-27] MEDS: ATORVASTATIN CALCIUM 40 MG TABLET. PO SCH (21:24)
[2019-05-27] MEDS: ENOXAPARIN 40 MG/0.4 ML SYRINGE. SQ SCH (21:33)
[2019-05-27] MEDS: INSULIN GLARGINE SYRINGE. SQ SCH (21:42)
[2019-05-27 23:06] VITALS: BP 142/78
[2019-05-28 03:08] VITALS: BP 133/54
[2019-05-28] MEDS: ceFAZolin SODIUM IV Push 1 GM VIAL. IVP SCH (05:56)
[2019-05-28 06:15] LABS: BASO % 1 % (0-3); EOS # 0.2 x10^3/uL (0.0-0.7); EOS % 3 % (0-3); HEMATOCRIT 38.8 % (39.0-53.0); HEMOGLOBIN 13.8 g/dL (13.0-17.5); LYMPH # 2.2 x10^3/uL (1.0-4.8); LYMPH % 24 % (24-48); MEAN CORPUSCULAR HEMOGLOBIN 31 pg (25-35); MEAN CORPUSCULAR HGB CONC 36 g/dL (31-37); MEAN CORPUSCULAR VOLUME 87 fL (79-100); MONO # 0.7 x10^3/uL (0.0-1.1); MONO % 8 % (0-9); NEUT % 65 % (31-73); PLATELET COUNT 251 x10^3/uL (140-400); RED BLOOD COUNT 4.44 x10^6/uL (4.30-5.70); RED CELL DISTRIBUTION WIDTH 14.9 % (11.5-14.5); WHITE BLOOD COUNT 9.2 x10^3/uL (4.0-11.0)
[2019-05-28 06:43] LABS: CALCIUM 8.9 mg/dL (8.5-10.1); CREATININE 0.7 mg/dL (0.7-1.3); POTASSIUM 3.9 mmol/L (3.5-5.1)
[2019-05-28 07:00] VITALS: BP 158/92
[2019-05-28] MEDS: INSULIN LISPRO 300 UNITS/3 ML VIAL. SQ SCH ×4 (07:30→21:00)
[2019-05-28] MEDS ORDERED: LINE600T37 PO (08:55)
--- NOTE | 2019-05-28 09:44 | PDOC ---
PROGRESS NOTES Chief Complaint Chief Complaint LLE cellulitis and abscess Left great toe diabetic ulcer s/p I and D with indwelling wound vac GNR wound GNR bacteremia sensitive to zyvox JERI , resolved HTN controlled CAD stable Diabetes-Type II , controlled now Smoker SEPSIS SP History of Present Illness History of Present Illness he has no complaints WOund vac but SP BS and VS ok One note indicating need for vanc BID- SP DR Jon has him on vanc and cefazolin since admission BC reviewed - GNR sensitive to zyvox, resistant to most abx WOund cx reviewed also, GNR PLAN: NEed to consult ID re the above dw RN and pt Cleared from ortho Vitals Vitals Vital Signs Date Time Temp Pulse Resp B/P (MAP) Pulse Ox O2 Delivery O2 Flow Rate FiO2 05/28/19 07:00 97.8 60 16 158/92 (114) 98 Room Air 97.8 Physical Exam General: Alert, Oriented X3, Cooperative Heart: Regular rate, Normal S1 Lungs: Clear Abdomen: Soft, No tenderness Extremities: No clubbing, No edema, Normal pulses Skin: No rashes, No significant lesion, Other (As above) Labs LABS Laboratory Tests Test 05/27/19 10:53 05/27/19 17:08 05/27/19 20:50 05/28/19 05:35 Glucose (Fingerstick) 200 mg/dL (70-99) 147 mg/dL (70-99) 223 mg/dL (70-99) White Blood Count 9.2 x10^3/uL (4.0-11.0) Red Blood Count 4.44 x10^6/uL (4.30-5.70) Hemoglobin 13.8 g/dL (13.0-17.5) Hematocrit 38.8 % (39.0-53.0) Mean Corpuscular Volume 87 fL (79-100) Mean Corpuscular Hemoglobin 31 pg (25-35) Mean Corpuscular Hemoglobin Concent 36 g/dL (31-37) Red Cell Distribution Width 14.9 % (11.5-14.5) Platelet Count 251 x10^3/uL (140-400) Neutrophils (%) (Auto) 65 % (31-73) Lymphocytes (%) (Auto) 24 % (24-48) Monocytes (%) (Auto) 8 % (0-9) Eosinophils (%) (Auto) 3 % (0-3) Basophils (%) (Auto) 1 % (0-3) Neutrophils # (Auto) 6.0 x10^3/uL (1.8-7.7) Lymphocytes # (Auto) 2.2 x10^3/uL (1.0-4.8) Monocytes # (Auto) 0.7 x10^3/uL (0.0-1.1) Eosinophils # (Auto) 0.2 x10^3/uL (0.0-0.7) Basophils # (Auto) 0.0 x10^3/uL (0.0-0.2) Sodium Level 142 mmol/L (136-145) Potassium Level 3.9 mmol/L (3.5-5.1) Chloride Level 105 mmol/L (98-107) Carbon Dioxide Level 29 mmol/L (21-32) Anion Gap 8 (6-14) Blood Urea Nitrogen 10 mg/dL (8-26) Creatinine 0.7 mg/dL (0.7-1.3) Estimated GFR (Cockcroft-Gault) 115.0 Glucose Level 95 mg/dL (70-99) Calcium Level 8.9 mg/dL (8.5-10.1) Test 05/28/19 07:18 Glucose (Fingerstick) 107 mg/dL (70-99) Review of Systems Review of Systems no cp, no fevers, soa, abd pain, n,v,d nor fevers Assessment and Plan Assessmemt and Plan Problems Medical Problems: (1) Diabetic foot ulcer Status: Acute (2) Hypokalemia Status: Acute (3) Left leg cellulitis Status: Acute (4) Nausea and vomiting Status: Acute (5) Uncontrolled diabetes mellitus Status: Acute Comment Review of Relevant I have reviewed the following items bhanu (where applicable) has been applied. Labs Laboratory Tests Test 05/26/19 10:15 05/26/19 11:06 05/26/19 16:42 05/26/19 16:50 Blood Urea Nitrogen 8 mg/dL (8-26) 10 mg/dL (8-26) Creatinine 0.7 mg/dL (0.7-1.3) 0.8 mg/dL (0.7-1.3) Estimated GFR (Cockcroft-Gault) 115.0 98.6 Random Vancomycin Level 13.1 mcg/mL Glucose (Fingerstick) 167 mg/dL (70-99) 192 mg/dL (70-99) White Blood Count 9.6 x10^3/uL (4.0-11.0) Red Blood Count 4.42 x10^6/uL (4.30-5.70) Hemoglobin 13.8 g/dL (13.0-17.5) Hematocrit 38.9 % (39.0-53.0) Mean Corpuscular Volume 88 fL (79-100) Mean Corpuscular Hemoglobin 31 pg (25-35) Mean Corpuscular Hemoglobin Concent 35 g/dL (31-37) Red Cell Distribution Width 15.0 % (11.5-14.5) Platelet Count 229 x10^3/uL (140-400) Neutrophils (%) (Auto) 69 % (31-73) Lymphocytes (%) (Auto) 19 % (24-48) Monocytes (%) (Auto) 8 % (0-9) Eosinophils (%) (Auto) 3 % (0-3) Basophils (%) (Auto) 1 % (0-3) Neutrophils # (Auto) 6.6 x10^3/uL (1.8-7.7) Lymphocytes # (Auto) 1.9 x10^3/uL (1.0-4.8) Monocytes # (Auto) 0.8 x10^3/uL (0.0-1.1) Eosinophils # (Auto) 0.3 x10^3/uL (0.0-0.7) Basophils # (Auto) 0.1 x10^3/uL (0.0-0.2) Sodium Level 138 mmol/L (136-145) Potassium Level 4.4 mmol/L (3.5-5.1) Chloride Level 102 mmol/L (98-107) Carbon Dioxide Level 31 mmol/L (21-32) Anion Gap 5 (6-14) BUN/Creatinine Ratio 13 (6-20) Glucose Level 174 mg/dL (70-99) Lactic Acid Level 1.4 mmol/L (0.4-2.0) Calcium Level 8.8 mg/dL (8.5-10.1) Total Bilirubin 0.6 mg/dL (0.2-1.0) Aspartate Amino Transf (AST/SGOT) 38 U/L (15-37) Alanine Aminotransferase (ALT/SGPT) 40 U/L (16-63) Alkaline Phosphatase 81 U/L (46-116) Total Protein 7.4 g/dL (6.4-8.2) Albumin 2.6 g/dL (3.4-5.0) Albumin/Globulin Ratio 0.5 (1.0-1.7) Test 05/26/19 20:38 05/27/19 06:35 05/27/19 07:49 05/27/19 10:53 Glucose (Fingerstick) 169 mg/dL (70-99) 121 mg/dL (70-99) 200 mg/dL (70-99) Creatinine 0.7 mg/dL (0.7-1.3) Estimated GFR (Cockcroft-Gault) 115.0 Test 05/27/19 17:08 05/27/19 20:50 05/28/19 05:35 05/28/19 07:18 Glucose (Fingerstick) 147 mg/dL (70-99) 223 mg/dL (70-99) 107 mg/dL (70-99) White Blood Count 9.2 x10^3/uL (4.0-11.0) Red Blood Count 4.44 x10^6/uL (4.30-5.70) Hemoglobin 13.8 g/dL (13.0-17.5) Hematocrit 38.8 % (39.0-53.0) Mean Corpuscular Volume 87 fL (79-100) Mean Corpuscular Hemoglobin 31 pg (25-35) Mean Corpuscular Hemoglobin Concent 36 g/dL (31-37) Red Cell Distribution Width 14.9 % (11.5-14.5) Platelet Count 251 x10^3/uL (140-400) Neutrophils (%) (Auto) 65 % (31-73) Lymphocytes (%) (Auto) 24 % (24-48) Monocytes (%) (Auto) 8 % (0-9) Eosinophils (%) (Auto) 3 % (0-3) Basophils (%) (Auto) 1 % (0-3) Neutrophils # (Auto) 6.0 x10^3/uL (1.8-7.7) Lymphocytes # (Auto) 2.2 x10^3/uL (1.0-4.8) Monocytes # (Auto) 0.7 x10^3/uL (0.0-1.1) Eosinophils # (Auto) 0.2 x10^3/uL (0.0-0.7) Basophils # (Auto) 0.0 x10^3/uL (0.0-0.2) Sodium Level 142 mmol/L (136-145) Potassium Level 3.9 mmol/L (3.5-5.1) Chloride Level 105 mmol/L (98-107) Carbon Dioxide Level 29 mmol/L (21-32) Anion Gap 8 (6-14) Blood Urea Nitrogen 10 mg/dL (8-26) Creatinine 0.7 mg/dL (0.7-1.3) Estimated GFR (Cockcroft-Gault) 115.0 Glucose Level 95 mg/dL (70-99) Calcium Level 8.9 mg/dL (8.5-10.1) Laboratory Tests Test 05/27/19 10:53 05/27/19 17:08 05/27/19 20:50 05/28/19 05:35 Glucose (Fingerstick) 200 mg/dL (70-99) 147 mg/dL (70-99) 223 mg/dL (70-99) White Blood Count 9.2 x10^3/uL (4.0-11.0) Red Blood Count 4.44 x10^6/uL (4.30-5.70) Hemoglobin 13.8 g/dL (13.0-17.5) Hematocrit 38.8 % (39.0-53.0) Mean Corpuscular Volume 87 fL (79-100) Mean Corpuscular Hemoglobin 31 pg (25-35) Mean Corpuscular Hemoglobin Concent 36 g/dL (31-37) Red Cell Distribution Width 14.9 % (11.5-14.5) Platelet Count 251 x10^3/uL (140-400) Neutrophils (%) (Auto) 65 % (31-73) Lymphocytes (%) (Auto) 24 % (24-48) Monocytes (%) (Auto) 8 % (0-9) Eosinophils (%) (Auto) 3 % (0-3) Basophils (%) (Auto) 1 % (0-3) Neutrophils # (Auto) 6.0 x10^3/uL (1.8-7.7) Lymphocytes # (Auto) 2.2 x10^3/uL (1.0-4.8) Monocytes # (Auto) 0.7 x10^3/uL (0.0-1.1) Eosinophils # (Auto) 0.2 x10^3/uL (0.0-0.7) Basophils # (Auto) 0.0 x10^3/uL (0.0-0.2) Sodium Level 142 mmol/L (136-145) Potassium Level 3.9 mmol/L (3.5-5.1) Chloride Level 105 mmol/L (98-107) Carbon Dioxide Level 29 mmol/L (21-32) Anion Gap 8 (6-14) Blood Urea Nitrogen 10 mg/dL (8-26) Creatinine 0.7 mg/dL (0.7-1.3) Estimated GFR (Cockcroft-Gault) 115.0 Glucose Level 95 mg/dL (70-99) Calcium Level 8.9 mg/dL (8.5-10.1) Test 05/28/19 07:18 Glucose (Fingerstick) 107 mg/dL (70-99) Microbiology 05/24/19 Anaerobic/Aerobic Culture, Resulted Pending 05/24/19 Anaerobic Culture Result 1 (KONG), Resulted Pending 05/24/19 Aerobic Culture - Preliminary, Resulted 05/24/19 Aerobic Culture Result 1 (KONG) - Preliminary, Resulted 05/24/19 Gram Stain - Final, Resulted 05/24/19 Gram Stain Result 1 (KONG) - Final, Resulted 05/24/19 Gram Stain Result 2 (KONG) - Final, Resulted 05/24/19 Anaerobic/Aerobic Culture, Resulted Pending 05/24/19 Anaerobic Culture Result 1 (KONG), Resulted Pending 05/24/19 Aerobic Culture - Preliminary, Resulted 05/24/19 Aerobic Culture Result 1 (KONG) - Preliminary, Resulted 05/24/19 Gram Stain - Final, Resulted 05/24/19 Gram Stain Result 1 (KONG) - Final, Resulted 05/24/19 Gram Stain Result 2 (KONG) - Final, Resulted 05/24/19 Blood Culture - Preliminary, Resulted NO GROWTH AFTER 4 DAYS Medications Current Medications Sodium Chloride 1,000 ml @ 1,000 mls/hr 1X ONCE IV Last administered on 05/22/19at 17:18; Start 05/22/19 at 17:00; Stop 05/22/19 at 17:59; Status DC Ondansetron HCl (Zofran) 4 mg 1X ONCE IV Last administered on 05/22/19at 17:18; Start 05/22/19 at 17:00; Stop 05/22/19 at 17:07; Status DC Cefazolin Sodium 50 ml @ 100 mls/hr 1X ONCE IV Last administered on 05/22/19at 17:57; Start 05/22/19 at 17:00; Stop 05/22/19 at 17:29; Status DC Vancomycin HCl 250 ml @ 250 mls/hr 1X ONCE IV ; Start 05/22/19 at 17:00; Stop 05/22/19 at 17:59; Status UNV Vancomycin HCl 2 gm/Sodium Chloride 500 ml @ 250 mls/hr 1X ONCE IV Last administered on 05/22/19at 18:32; Start 05/22/19 at 17:15; Stop 05/22/19 at 19:14; Status DC Insulin Human Lispro (HumaLOG) 0-7 UNITS TIDACHC SQ Last administered on 05/27/19at 22:10; Start 05/22/19 at 21:00 Dextrose (Dextrose 50%-Water Syringe) 12.5 gm PRN Q15MIN PRN IV SEE COMMENTS; Start 05/22/19 at 19:45 Dextrose 250 ml PRN Q15MIN PRN IV SEE COMMENTS; Start 05/22/19 at 19:45 Atorvastatin Calcium (Lipitor) 40 mg QHS PO Last administered on 05/27/19at 21:42; Start 05/22/19 at 21:00 Insulin Glargine (Lantus Syringe) 15 unit QHS SQ ; Start 05/22/19 at 21:00; Stop 05/22/19 at 21:16; Status DC Cefazolin Sodium 1 gm/Dextrose 50 ml @ 100 mls/hr Q8HRS IV ; Start 05/22/19 at 22:00; Stop 05/22/19 at 21:12; Status DC Vancomycin HCl (Vanco Per Pharmacy) 1 each PRN DAILY PRN MC SEE COMMENTS Last administered on 05/27/19at 15:29; Start 05/22/19 at 19:45 Enoxaparin Sodium (Lovenox 40mg Syringe) 40 mg Q24H SQ Last administered on 21:42; Start 05/22/19 at 21:00 Insulin Glargine (Lantus Syringe) 45 unit QHS SQ Last administered on 05/27/19 21:42; Start 05/22/19 at 21:00 Cefazolin Sodium (Ancef) 1 gm Q8HRS IVP Last administered on 05/28/19 05:56; Start 05/22/19 at 22:00 Vancomycin HCl (Vancomycin Trough Level) 1 each 1X ONCE MC Last administered on 05/24/19 12:48; Start 05/24/19 at 06:30; Stop 05/24/19 at 06:31; Status DC Vancomycin HCl 1.75 gm/Sodium Chloride 500 ml @ 250 mls/hr Q18H IV Last administered on 05/24/19 09:43; Start 05/23/19 at 13:00; Stop 05/24/19 at 12:00; Status DC Tramadol HCl (Ultram) 50 mg PRN Q6HRS PRN PO PAIN Last administered on 05/26/19 00:59; Start 05/22/19 at 23:00 Morphine Sulfate (Morphine Sulfate) 2 mg PRN Q4HRS PRN IV PAIN Last administered on 05/26/19 11:24; Start 05/22/19 at 23:00 Lactobacillus Rhamnosus (Culturelle) 1 cap BID PO Last administered on 05/27/19 21:42; Start 05/23/19 at 21:00 Potassium Chloride (Klor-Con) 40 meq 1X ONCE PO Last administered on 05/23/19 14:47; Start 05/23/19 at 14:00; Stop 05/23/19 at 14:01; Status DC Potassium Chloride (Klor-Con) 20 meq DAILYWBKFT PO Last administered on 05/27/19 09:16; Start 05/24/19 at 08:00 Multivitamins (Thera M Plus) 1 tab DAILY PO Last administered on 05/27/19 09:16; Start 05/23/19 at 14:00 Ondansetron HCl (Zofran) 4 mg PRN Q6HRS PRN IV NAUSEA/VOMITING; Start 05/24/19 at 07:00; Stop 05/24/19 at 20:00; Status DC Fentanyl Citrate (Fentanyl 2ml Vial) 25 mcg PRN Q5MIN PRN IV MILD PAIN 1-3; Start 05/24/19 at 07:00; Stop 05/24/19 at 20:00; Status DC Fentanyl Citrate (Fentanyl 2ml Vial) 50 mcg PRN Q5MIN PRN IV MODERATE TO SEVERE PAIN; Start 05/24/19 at 07:00; Stop 05/24/19 at 20:00; Status DC Morphine Sulfate (Morphine Sulfate) 1 mg PRN Q10MIN PRN IV SEVERE PAIN 7-10; Start 05/24/19 at 07:00; Stop 05/24/19 at 20:00; Status DC Ringer's Solution 1,000 ml @ 30 mls/hr Q24H IV ; Start 05/24/19 at 07:00; Stop 05/24/19 at 18:59; Status DC Lidocaine HCl (Xylocaine-Mpf 1% 2ml Vial) 2 ml PRN 1X PRN ID PRIOR TO IV START; Start 05/24/19 at 07:00; Stop 05/24/19 at 20:00; Status DC Hydromorphone HCl (Dilaudid) 0.5 mg PRN Q10MIN PRN IV SEV PAIN, Second choice; Start 05/24/19 at 07:00; Stop 05/24/19 at 20:00; Status DC Prochlorperazine Edisylate (Compazine) 5 mg PACU PRN PRN IV NAUSEA, MRX1; Start 05/24/19 at 07:00; Stop 05/24/19 at 20:00; Status DC Vancomycin HCl 1.75 gm/Sodium Chloride 500 ml @ 250 mls/hr Q12H IV Last administered on 05/27/19at 21:42; Start 05/24/19 at 22:00 Vancomycin HCl (Vancomycin Trough Level) 1 each 1X ONCE MC Last administered on 05/25/19at 21:55; Start 05/25/19 at 21:30; Stop 05/25/19 at 21:31; Status DC Phenylephrine HCl (PHENYLEPHRINE in 0.9% NACL PF) 1 mg STK-MED ONCE IV ; Start 05/24/19 at 11:28; Stop 05/24/19 at 11:28; Status DC Fentanyl Citrate (Fentanyl 2ml Vial) 100 mcg STK-MED ONCE .ROUTE ; Start 05/24/19 at 11:34; Stop 05/24/19 at 11:34; Status DC Propofol 20 ml @ As Directed STK-MED ONCE IV ; Start 05/24/19 at 11:41; Stop 05/24/19 at 11:41; Status DC Lidocaine HCl (Lidocaine Pf 2% Vial) 5 ml STK-MED ONCE .ROUTE ; Start 05/24/19 at 11:41; Stop 05/24/19 at 11:41; Status DC Ondansetron HCl (Zofran) 4 mg STK-MED ONCE .ROUTE ; Start 05/24/19 at 11:41; Stop 05/24/19 at 11:41; Status DC Sevoflurane (Ultane) 60 ml STK-MED ONCE IH ; Start 05/24/19 at 11:41; Stop 05/24/19 at 11:42; Status DC Ephedrine Sulfate (ePHEDrine PF IN SALINE SYRINGE) 50 mg STK-MED ONCE IV ; Start 05/24/19 at 11:46; Stop 05/24/19 at 11:47; Status DC Vancomycin HCl (Vancomycin Random Level) 1 each 1X ONCE MC Last administered on 05/26/19at 10:48; Start 05/26/19 at 10:00; Stop 05/26/19 at 10:01; Status DC Active Scripts Active Zyvox (Linezolid) 600 Mg Tablet 600 Mg PO BIDAC 10 Days Clopidogrel (Clopidogrel Bisulfate) 75 Mg Tablet 75 Mg PO DAILYWBKFT Children's Aspirin (Aspirin) 81 Mg Tab.chew 81 Mg PO DAILYWBKFT Atorvastatin Calcium 40 Mg Tablet 40 Mg PO QHS Reported Zofran (Ondansetron Hcl) 4 Mg Tablet 1 Tab PO Q6HRS Jardiance (Empagliflozin) 10 Mg Tablet 10 Mg PO DAILY PRN Gabapentin 600 Mg Tablet 300 Mg PO HS Famotidine 20 Mg Tablet 20 Mg PO BID Furosemide 40 Mg Tablet 1 Tab PO DAILY Cialis (Tadalafil) 5 Mg Tablet 2.5 Mg PO DAILY Lantus Solostar (Insulin Glargine,Hum.rec.anlog) 100 Unit/1 Ml Insuln.pen 45 Unit SQ QHS Metformin Hcl 1,000 Mg Tablet 1,000 Mg PO BIDWMEALS Vitals/I & O Vital Sign - Last 24 Hours 9/10/19 9/10/19 9/10/19 9/10/19 11:00 15:00 19:20 20:00 Temp 98.1 97.7 98.0 98.1 97.7 98.0 Pulse 67 65 64 Resp 18 18 18 B/P (MAP) 151/65 (93) 136/80 (98) 141/66 (91) Pulse Ox 97 97 97 O2 Delivery Room Air Room Air Room Air Room Air 05/27/19 05/28/19 05/28/19 23:06 03:08 07:00 Temp 98.2 97.9 97.8 98.2 97.9 97.8 Pulse 64 64 60 Resp 18 18 16 B/P (MAP) 142/78 (99) 133/54 (80) 158/92 (114) Pulse Ox 96 97 98 O2 Delivery Room Air Room Air Room Air Intake and Output 05/27/19 05/27/19 05/28/19 15:00 23:00 07:00 Intake Total 360 ml Output Total 250 ml 1200 ml Balance -250 ml -840 ml RENATA ENRIQUEZ MD May 28, 2019 09:44
[2019-05-28] MEDS: MULTIVITAMIN with MINERAL TABLET. PO SCH (10:18)
[2019-05-28] MEDS: LACTOBACILLUS RHAMNOSUS GG 1 CAPSULE. PO SCH ×2 (10:18→20:55)
[2019-05-28] MEDS: POTASSIUM CHLORIDE 20 MEQ TABLET.ER. PO SCH (10:18)
[2019-05-28 10:51] VITALS: BP 157/96
[2019-05-28] MEDS: MEROPENEM 500 MG in IV NORMAL SALINE 50ML 50 ML IV SCH ×2 (12:29→18:05)
--- NOTE | 2019-05-28 13:34 | NUR ---
Wound Care Pt seen for wound vac dressing change to left foot wounds. 2 pieces of vac foam removed, wound bed is red and granulated, minimal drainage noted, but foot and lower leg is very edematous. 2 pieces of silver vac foam placed into wound bed, one through from the dorsal opening and one from the plantar surface, in a kissing fashion, vac with strong seal at -125 mmHg continuous suction, pt tolerated well. Pt and family educated on leg elevation, as pt was sitting at bedside with feet on floor when WCRNs arrived, both v/u. Size F Medigrip applied to LLE to help reduce some swelling. Pt stated he is not going to offload his wound very well with the half shoe, "i'm just being honest". Pt reeducated on the importance of keeping weight off the foot. Will continue to follow for next vac change, and home vac is ready for d/c.
[2019-05-28 15:00] VITALS: BP 162/89
[2019-05-28 19:00] VITALS: BP 137/70
[2019-05-28] MEDS: ATORVASTATIN CALCIUM 40 MG TABLET. PO SCH (20:55)
[2019-05-28] MEDS: ENOXAPARIN 40 MG/0.4 ML SYRINGE. SQ SCH (20:55)
[2019-05-28] MEDS: INSULIN GLARGINE SYRINGE. SQ SCH (21:01)
[2019-05-28 22:48] VITALS: BP 144/75
[2019-05-29] MEDS: MEROPENEM 500 MG in IV NORMAL SALINE 50ML 50 ML IV SCH ×4 (00:07→17:31)
--- NOTE | 2019-05-29 00:45 | CONS ---
DATE OF CONSULTATION: 05/28/2019 REFERRING PHYSICIAN: Valery Gunn MD REASON FOR CONSULTATION: Bacteremia and Gram-negative alice foot infection. HISTORY OF PRESENT ILLNESS: A 59-year-old male with history of diabetes mellitus, presented to the ED on 05/22/2019 with chronic nonhealing left foot ulcer with left leg swelling and redness. He had the ulcer for about a year, which got worse 3-4 days prior to admission with worsening erythema, swelling, without any fevers, chills, pain. He also had some nausea and vomiting before admission, which got better after he got Zofran by his primary care physician. He had mild leukocytosis. He underwent ultrasound of the lower extremity, which did not show any DVT except for subcutaneous edema. Foot x-ray showed edematous changes of the soft tissue throughout the foot, most notable of the great toe MTP, which appears to be superimposed ulcer, no radiographic manifestation of osteomyelitis. The patient underwent duplex arterial study of the lower extremity, which showed no evidence of hemodynamically significant stenosis, mild increased velocity identified in the calf arteries, nonspecific. The patient was seen by Orthopedics. He underwent I and D, excisional skin and subcutaneous left foot wound with application of wound VAC and removal of the left fifth toenail. Tissue and swab were taken from infection for culture. Cultures are showing Gram-negative rods. ID and KONG is pending at this time. Blood culture from 05/22/2019, 1 out of 4 bottles is showing coagulase negative staph. The patient is on IV vancomycin and cefazolin. ID consult has been requested for antibiotic management. Today, the patient denies any fevers, chills, nausea, vomiting, diarrhea, abdominal pain. Continues to have swelling over the left lower extremity, though has not been able to keep it elevated as much as he can. He denies any headache, sore throat, difficulty swallowing, nausea, vomiting, diarrhea, abdominal pain, symptoms, rash, new joint pain. The patient has wound VAC applied to the left lower extremity. PAST MEDICAL HISTORY: Diabetes mellitus, hypertension, coronary artery disease, status post COLE to RCA 2016, hypertension, chronic nonhealing left diabetic foot ulcer, hyperlipidemia. PAST SURGICAL HISTORY: None. FAMILY HISTORY: Diabetes. SOCIAL HISTORY: Less than 1 pack per day, though he has not smoked much in the last one month. No alcohol, no drugs. The patient and live with their friends, home situation is questionable. CURRENT MEDICATION: IV vancomycin, cefazolin. Other medications reviewed in medication list. ALLERGIES: No known drug allergies. REVIEW OF SYSTEMS: Negative except for above in HPI. PHYSICAL EXAMINATION: VITAL SIGNS: Temperature 97.8, pulse 60, respirations 16, blood pressure 158/92, oxygen saturation 98% on room air. GENERAL: Alert, oriented x 3 male lying in bed comfortably, in no acute distress, cooperative. HEENT: Blindness, left eye. Right eye, reactive. No icterus. NECK: Supple. LUNGS: Clear. HEART: S1, S2, no murmurs. ABDOMEN: Soft, nontender, nondistended, no rebound or guarding. EXTREMITIES: Left lower extremity edematous, warm, wound VAC in place, not taken down, receding per the patient. DERMATOLOGIC: Warm and dry. No generalized rash except for above. MUSCULOSKELETAL: No joint swelling except for left ankle swelling. The patient is decreasing. No back pain, no joint pain. No decrease in range of motion. LABORATORY DATA: WBC 9.2, hemoglobin 13.8, hematocrit 38.8, platelets 251. Sodium 142, potassium 3.9, chloride 105, bicarbonate 29, BUN 10, creatinine 0.7, glucose 107. Vancomycin trough 7.1. UA shows rare wbc's, leukocyte esterase negative. Micro: Blood culture 1 out 4 on 05/22/2019, coagulase-negative staph, likely contaminant. Repeat blood culture 05/24/2019 negative. Wound culture 05/24/2019, Gram-negative alice. ID and KONG is pending at this time. IMAGING: Left lower extremity ultrasound as above. Left foot x-ray as above. Left lower extremity duplex arterial study as above. IMPRESSION: 1. Coagulase-negative staph bacteremia 05/22/2019, 1 out of 4 bottles, likely contaminant. Repeat blood cultures negative from 05/24/2019. The patient does not have any prosthesis. 2. Left lower extremity cellulitis. 3. Diabetic foot ulcer, chronic with infection, status post I and D on 05/24/2019 with cultures growing Gram-negative alice. X-ray negative for osteomyelitis. 4. Nausea, vomiting, likely from sepsis, resolved. 5. Uncontrolled diabetes mellitus. 6. Hypokalemia. RECOMMENDATIONS: 1. Discontinue IV vancomycin and cefazolin. 2. Coagulase-negative staph in blood cultures, likely contaminant, does not need treatment. 3. Start empiric Merrem pending ID and KONG of Gram-negative alice in the wound culture. 4. Elevate left lower extremity. 5. Wound care per Orthopedics. 6. Optimal edema control. 7. Optimal diabetes control. 8. Follow up labs and cultures. 9. Continue supportive care. 10. Discussed with RN. Thank you, Dr. Gunn, for consulting Infectious Disease to participate in this patient's care. We will follow along with you. PABLO MEDINA MD DR: CARLOS/nikki JOB#: [id number] / [id number]
[2019-05-29 02:54] VITALS: BP 130/89
[2019-05-29 07:00] VITALS: BP 124/76
[2019-05-29] MEDS: INSULIN LISPRO 300 UNITS/3 ML VIAL. SQ SCH ×4 (07:30→21:00)
[2019-05-29] MEDS: MULTIVITAMIN with MINERAL TABLET. PO SCH (08:28)
[2019-05-29] MEDS: LACTOBACILLUS RHAMNOSUS GG 1 CAPSULE. PO SCH ×2 (08:28→20:50)
[2019-05-29] MEDS: POTASSIUM CHLORIDE 20 MEQ TABLET.ER. PO SCH (08:28)
[2019-05-29 08:39] LABS: BASO % 1 % (0-3); EOS # 0.2 x10^3/uL (0.0-0.7); EOS % 3 % (0-3); HEMOGLOBIN 13.9 g/dL (13.0-17.5); LYMPH # 2.3 x10^3/uL (1.0-4.8); LYMPH % 27 % (24-48); MEAN CORPUSCULAR HEMOGLOBIN 31 pg (25-35); MEAN CORPUSCULAR HGB CONC 36 g/dL (31-37); MEAN CORPUSCULAR VOLUME 86 fL (79-100); MONO # 0.8 x10^3/uL (0.0-1.1); MONO % 9 % (0-9); NEUT % 61 % (31-73); PLATELET COUNT 250 x10^3/uL (140-400); RED BLOOD COUNT 4.52 x10^6/uL (4.30-5.70); RED CELL DISTRIBUTION WIDTH 14.8 % (11.5-14.5); WHITE BLOOD COUNT 8.3 x10^3/uL (4.0-11.0)
[2019-05-29 08:42] LABS: CREATININE 0.7 mg/dL (0.7-1.3); POTASSIUM 3.9 mmol/L (3.5-5.1)
--- NOTE | 2019-05-29 08:49 | PDOC ---
Infectious Disease Note Subjective: Subjective Pt is doing well no pain no f/c/n/v/d/abdo pain Lt leg swelling, redness and pain ROS: ROS Negative otherwise. Vital Signs: Vital Signs Vital Signs Date Time Temp Pulse Resp B/P (MAP) Pulse Ox O2 Delivery O2 Flow Rate FiO2 05/29/19 02:54 98.1 80 18 130/89 (103) 96 Room Air 98.1 Physical Exam: PHYSICAL EXAM GENERAL: Alert, oriented x 3 male lying in bed comfortably, in no acute distress, cooperative. HEENT: Blindness, left eye. Right eye, reactive. No icterus. NECK: Supple. LUNGS: Clear. HEART: S1, S2, no murmurs. ABDOMEN: Soft, nontender, nondistended, no rebound or guarding. EXTREMITIES: Left lower extremity edematous, warm, wound VAC in place, not taken down, receding per the patient. DERMATOLOGIC: Warm and dry. No generalized rash except for above. MUSCULOSKELETAL: No joint swelling except for left ankle swelling. Per patient,it is decreasing. No back pain, no joint pain. No decrease in range of motion. Medications: Inpatient Meds: Current Medications Medications (Trade) Dose Ordered Sig/Ethan Start Time Stop Time Status Last Admin Dose Admin Atorvastatin Calcium (Lipitor) 40 mg QHS 05/22/19 21:00 05/28/19 21:01 40 MG Cefazolin Sodium (Ancef) 1 gm Q8HRS 05/22/19 22:00 05/28/19 10:29 DC 05/28/19 05:56 1 GM Cefazolin Sodium 1 gm/Dextrose 50 ml @ 100 mls/hr Q8HRS 05/22/19 22:00 05/22/19 21:12 DC Dextrose 250 ml PRN Q15MIN PRN 05/22/19 19:45 Dextrose (Dextrose 50%-Water Syringe) 12.5 gm PRN Q15MIN PRN 05/22/19 19:45 Enoxaparin Sodium (Lovenox 40mg Syringe) 40 mg Q24H 05/22/19 21:00 05/28/19 21:01 40 MG Ephedrine Sulfate (ePHEDrine PF IN SALINE SYRINGE) 50 mg STK-MED ONCE 05/24/19 11:46 05/24/19 11:47 DC Fentanyl Citrate (Fentanyl 2ml Vial) 100 mcg STK-MED ONCE 05/24/19 11:34 05/24/19 11:34 DC Hydromorphone HCl (Dilaudid) 0.5 mg PRN Q10MIN PRN 05/24/19 07:00 05/24/19 20:00 DC Insulin Glargine (Lantus Syringe) 45 unit QHS 05/22/19 21:00 05/28/19 21:01 45 UNIT Insulin Human Lispro (HumaLOG) 0-7 UNITS TIDACHC 05/22/19 21:00 05/28/19 18:05 3 UNITS Lactobacillus Rhamnosus (Culturelle) 1 cap BID 05/23/19 21:00 05/29/19 08:28 1 CAP Lidocaine HCl (Lidocaine Pf 2% Vial) 5 ml STK-MED ONCE 05/24/19 11:41 05/24/19 11:41 DC Lidocaine HCl (Xylocaine-Mpf 1% 2ml Vial) 2 ml PRN 1X PRN 05/24/19 07:00 05/24/19 20:00 DC Meropenem 500 mg/ Sodium Chloride 50 ml @ 100 mls/hr Q6HRS 05/28/19 12:00 05/29/19 05:43 100 MLS/HR Morphine Sulfate (Morphine Sulfate) 1 mg PRN Q10MIN PRN 05/24/19 07:00 05/24/19 20:00 DC Multivitamins (Thera M Plus) 1 tab DAILY 05/23/19 14:00 05/29/19 08:28 1 TAB Ondansetron HCl (Zofran) 4 mg STK-MED ONCE 05/24/19 11:41 05/24/19 11:41 DC Phenylephrine HCl (PHENYLEPHRINE in 0.9% NACL PF) 1 mg STK-MED ONCE 05/24/19 11:28 05/24/19 11:28 DC Potassium Chloride (Klor-Con) 20 meq DAILYWBKFT 05/24/19 08:00 05/29/19 08:28 20 MEQ Prochlorperazine Edisylate (Compazine) 5 mg PACU PRN PRN 05/24/19 07:00 05/24/19 20:00 DC Propofol 20 ml @ As Directed STK-MED ONCE 05/24/19 11:41 05/24/19 11:41 DC Ringer's Solution 1,000 ml @ 30 mls/hr Q24H 05/24/19 07:00 05/24/19 18:59 DC Sevoflurane (Ultane) 60 ml STK-MED ONCE 05/24/19 11:41 05/24/19 11:42 DC Sodium Chloride 1,000 ml @ 1,000 mls/hr 1X ONCE 05/22/19 17:00 05/22/19 17:59 DC 05/22/19 17:18 1,000 MLS/HR Tramadol HCl (Ultram) 50 mg PRN Q6HRS PRN 05/22/19 23:00 05/26/19 00:59 50 MG Vancomycin HCl (Vanco Per Pharmacy) 1 each PRN DAILY PRN 05/22/19 19:45 05/28/19 10:32 DC 05/27/19 15:29 1 EACH Vancomycin HCl (Vancomycin Random Level) 1 each 1X ONCE 05/26/19 10:00 05/26/19 10:01 DC 05/26/19 10:48 1 EACH Vancomycin HCl (Vancomycin Trough Level) 1 each 1X ONCE 05/25/19 21:30 05/25/19 21:31 DC 05/25/19 21:55 1 EACH Vancomycin HCl 1.75 gm/Sodium Chloride 500 ml @ 250 mls/hr Q12H 05/24/19 22:00 05/28/19 10:29 DC 05/27/19 21:42 250 MLS/HR Vancomycin HCl 2 gm/Sodium Chloride 500 ml @ 250 mls/hr 1X ONCE 05/22/19 17:15 05/22/19 19:14 DC 05/22/19 18:32 250 MLS/HR Labs: Lab Laboratory Tests Test 05/28/19 11:40 05/28/19 16:53 05/28/19 20:41 05/29/19 07:36 Glucose (Fingerstick) 180 mg/dL (70-99) 160 mg/dL (70-99) 171 mg/dL (70-99) 115 mg/dL (70-99) Objective: Assessment: 1. Coagulase-negative staph bacteremia 05/22/2019, 1 out of 4 bottles, likely contaminant. Repeat blood cultures negative from 05/24/2019. The patient does not have any prosthesis. 2. Left lower extremity cellulitis. 3. Diabetic foot ulcer, chronic with infection, 05/24/2019 S/P irrigation and debridement, excisional, skin and subcutaneous tissue left foot wound application of wound VAC to wound less than 25 cm� removal left fifth toenail "Findings: Near complete a avulsion of the fifth toenail 3 punctate wounds dorsal medial distal first metatarsal connected to plantar foot wound, approximately a square centimeter at the plantar wound. There was some gross purulence encountered during surgery as well." Cultures growing 2 strains of MDRO E coli's. 4. Nausea, vomiting, likely from sepsis, resolved. 5. Uncontrolled diabetes mellitus. 6. Hypokalemia. Plan: Plan of Care Place in contact isolation continue Merrem when ready for dc transition to Invanz 1 gm IV q daily SW to assist for discharge Invanz,script in chart q mon cbc/bun/creat/esr/lfts Mid line Elevate left lower extremity. Wound /vac care per Orthopedics. Optimal edema control. Optimal diabetes control. Follow up labs and cultures. Continue supportive care. Discussed with RN. PABLO MEDINA MD May 29, 2019 08:49
--- NOTE | 2019-05-29 09:37 | PDOC ---
[employer] PROGRESS NOTE Chief Complaint Chief Complaint LLE cellulitis and abscess Left great toe diabetic ulcer s/p I and D with indwelling wound vac GNR wound GNR bacteremia sensitive to zyvox JERI , resolved HTN controlled CAD stable Diabetes-Type II , controlled now Smoker SEPSIS SP History of Present Illness History of Present Illness 05/29/19 Pt seen/examined at bedside and has NAD DW ID who states patient with possible DC tomorrow Chart Review DW RN Vitals/I&O Vitals/I&O: Vital Signs Date Time Temp Pulse Resp B/P (MAP) Pulse Ox O2 Delivery O2 Flow Rate FiO2 05/29/19 07:00 97.7 64 18 124/76 (92) 94 Room Air 97.7 I & O 05/28/19 05/28/19 05/29/19 15:00 23:00 07:00 Intake Total 360 ml 180 ml Output Total 975 ml 600 ml Balance -615 ml 180 ml -600 ml Physical Exam Physical Exam: GENERAL: Alert, oriented x 3 male lying in bed comfortably, in no acute distress, cooperative. HEENT: Blindness, left eye. Right eye, reactive. No icterus. NECK: Supple. LUNGS: Clear. HEART: S1, S2, no murmurs. ABDOMEN: Soft, nontender, nondistended, no rebound or guarding. EXTREMITIES: Left lower extremity edematous, warm, wound VAC in place, not taken down, receding per the patient. DERMATOLOGIC: Warm and dry. No generalized rash except for above. MUSCULOSKELETAL: No joint swelling except for left ankle swelling. Per patient,it is decreasing. No back pain, no joint pain. No decrease in range of motion. General: Alert, Oriented X3, Cooperative Heart: Regular rate, Normal S1 Lungs: Clear Abdomen: Soft, No tenderness Extremities: No clubbing, No edema, Normal pulses Skin: No rashes, No significant lesion, Other (As above) Labs Labs: Laboratory Tests Test 05/28/19 11:40 05/28/19 16:53 05/28/19 20:41 05/29/19 07:24 Glucose (Fingerstick) 180 mg/dL (70-99) 160 mg/dL (70-99) 171 mg/dL (70-99) White Blood Count 8.3 x10^3/uL (4.0-11.0) Red Blood Count 4.52 x10^6/uL (4.30-5.70) Hemoglobin 13.9 g/dL (13.0-17.5) Hematocrit 39.0 % (39.0-53.0) Mean Corpuscular Volume 86 fL (79-100) Mean Corpuscular Hemoglobin 31 pg (25-35) Mean Corpuscular Hemoglobin Concent 36 g/dL (31-37) Red Cell Distribution Width 14.8 % (11.5-14.5) Platelet Count 250 x10^3/uL (140-400) Neutrophils (%) (Auto) 61 % (31-73) Lymphocytes (%) (Auto) 27 % (24-48) Monocytes (%) (Auto) 9 % (0-9) Eosinophils (%) (Auto) 3 % (0-3) Basophils (%) (Auto) 1 % (0-3) Neutrophils # (Auto) 5.0 x10^3/uL (1.8-7.7) Lymphocytes # (Auto) 2.3 x10^3/uL (1.0-4.8) Monocytes # (Auto) 0.8 x10^3/uL (0.0-1.1) Eosinophils # (Auto) 0.2 x10^3/uL (0.0-0.7) Basophils # (Auto) 0.0 x10^3/uL (0.0-0.2) Sodium Level 142 mmol/L (136-145) Potassium Level 3.9 mmol/L (3.5-5.1) Chloride Level 105 mmol/L (98-107) Carbon Dioxide Level 29 mmol/L (21-32) Anion Gap 8 (6-14) Blood Urea Nitrogen 11 mg/dL (8-26) Creatinine 0.7 mg/dL (0.7-1.3) Estimated GFR (Cockcroft-Gault) 115.0 Glucose Level 87 mg/dL (70-99) Calcium Level 9.0 mg/dL (8.5-10.1) C-Reactive Protein, Quantitative 11.3 mg/L (0-3.3) Test 05/29/19 07:36 Glucose (Fingerstick) 115 mg/dL (70-99) Review of Systems Review of Systems: co foot pain no co weakness Assessment and Plan Assessmemt and Plan Problems Medical Problems: (1) Diabetic foot ulcer Status: Acute (2) Hypokalemia Status: Acute (3) Left leg cellulitis Status: Acute (4) Nausea and vomiting Status: Acute (5) Uncontrolled diabetes mellitus Status: Acute Assessment: LLE cellulitis and abscess Left great toe diabetic ulcer s/p I and D with indwelling wound vac GNR wound GNR bacteremia sensitive to zyvox JERI , resolved HTN controlled CAD stable Diabetes-Type II , controlled now Smoker SEPSIS SP Plan: Discharge tomorrow if cleared by ID Wound Care Continue Abx DVT prophylaxis PT/OT Home Meds Appreciate subspeciality input Comment Review of Relevant I have reviewed the following items bhanu (where applicable) has been applied. Medications: Current Medications Medications (Trade) Dose Ordered Sig/Ethan Route PRN Reason Start Time Stop Time Status Last Admin Dose Admin Meropenem 500 mg/ Sodium Chloride 50 ml @ 100 mls/hr Q6HRS IV 05/28/19 12:00 05/29/19 05:43 MALACHI STUART III, DO May 29, 2019 09:37
[2019-05-29 11:00] VITALS: BP 119/75
[2019-05-29] MEDS ORDERED: NICOTINE 14MG PATCH. TD PRN (12:30)
[2019-05-29 15:00] VITALS: BP 123/73
--- NOTE | 2019-05-29 15:34 | NUR ---
SS following up with discharge planning. Script for IV abx received. SS phoned and faxed script and clinical to outpatient services, [phone]; fax [phone]. SS spoke with So in outpatient. Pt scheduled for outpatient IV abx at 1400 on 05/30/2019. Pt's RN and pt notified.
[2019-05-29 19:00] VITALS: BP 130/73
[2019-05-29] MEDS: ATORVASTATIN CALCIUM 40 MG TABLET. PO SCH (20:50)
[2019-05-29] MEDS: INSULIN GLARGINE SYRINGE. SQ SCH (20:52)
[2019-05-29] MEDS: ENOXAPARIN 40 MG/0.4 ML SYRINGE. SQ SCH (20:59)
[2019-05-29 22:42] VITALS: BP 138/86
[2019-05-30] MEDS: MEROPENEM 500 MG in IV NORMAL SALINE 50ML 50 ML IV SCH ×4 (00:08→16:30)
[2019-05-30 03:00] VITALS: BP 120/68
[2019-05-30 05:34] LABS: BASO % 1 % (0-3); EOS # 0.1 x10^3/uL (0.0-0.7); EOS % 2 % (0-3); HEMOGLOBIN 13.6 g/dL (13.0-17.5); LYMPH # 2.2 x10^3/uL (1.0-4.8); LYMPH % 29 % (24-48); MEAN CORPUSCULAR HEMOGLOBIN 31 pg (25-35); MEAN CORPUSCULAR HGB CONC 36 g/dL (31-37); MEAN CORPUSCULAR VOLUME 87 fL (79-100); MONO # 0.7 x10^3/uL (0.0-1.1); MONO % 10 % (0-9); NEUT # 4.5 x10^3/uL (1.8-7.7); NEUT % 59 % (31-73); PLATELET COUNT 237 x10^3/uL (140-400); RED BLOOD COUNT 4.38 x10^6/uL (4.30-5.70); RED CELL DISTRIBUTION WIDTH 14.8 % (11.5-14.5); WHITE BLOOD COUNT 7.6 x10^3/uL (4.0-11.0)
[2019-05-30 06:05] LABS: CALCIUM 9.5 mg/dL (8.5-10.1); CREATININE 0.7 mg/dL (0.7-1.3); POTASSIUM 3.8 mmol/L (3.5-5.1)
[2019-05-30 07:00] VITALS: BP 120/73
[2019-05-30] MEDS: INSULIN LISPRO 300 UNITS/3 ML VIAL. SQ SCH ×3 (07:30→16:30)
[2019-05-30 07:36] LABS: PROTHROMBIN TIME PATIENT 14.7 SEC (11.7-14.0)
--- NOTE | 2019-05-30 08:11 | PDOC ---
Infectious Disease Note Subjective: Subjective Pt is doing well no pain no f/c/n/v/d/abdo pain Improving Lt leg swelling, redness and pain eager for dc home today ROS: ROS Negative otherwise. Vital Signs: Vital Signs Vital Signs Date Time Temp Pulse Resp B/P (MAP) Pulse Ox O2 Delivery O2 Flow Rate FiO2 05/30/19 07:00 98.7 62 18 120/73 (89) 95 Room Air 98.7 Physical Exam: PHYSICAL EXAM GENERAL: Alert, oriented x 3 male lying in bed comfortably, in no acute distress, cooperative. HEENT: Blindness, left eye. Right eye, reactive. No icterus. NECK: Supple. LUNGS: Clear. HEART: S1, S2, no murmurs. ABDOMEN: Soft, nontender, nondistended, no rebound or guarding. EXTREMITIES: Left lower extremity edematous, warm, wound VAC in place, not taken down, receding per the patient. DERMATOLOGIC: Warm and dry. No generalized rash except for above. MUSCULOSKELETAL: No joint swelling except for left ankle swelling. Per patient,it is decreasing. No back pain, no joint pain. No decrease in range of motion. Medications: Inpatient Meds: Current Medications Medications (Trade) Dose Ordered Sig/Ethan Start Time Stop Time Status Last Admin Dose Admin Atorvastatin Calcium (Lipitor) 40 mg QHS 05/22/19 21:00 05/29/19 20:52 Cefazolin Sodium (Ancef) 1 gm Q8HRS 05/22/19 22:00 05/28/19 10:29 DC 05/28/19 05:56 Cefazolin Sodium 1 gm/Dextrose 50 ml @ 100 mls/hr Q8HRS 05/22/19 22:00 05/22/19 21:12 DC Dextrose 250 ml PRN Q15MIN PRN 05/22/19 19:45 Dextrose (Dextrose 50%-Water Syringe) 12.5 gm PRN Q15MIN PRN 05/22/19 19:45 Enoxaparin Sodium (Lovenox 40mg Syringe) 40 mg Q24H 05/22/19 21:00 05/29/19 20:59 Ephedrine Sulfate (ePHEDrine PF IN SALINE SYRINGE) 50 mg STK-MED ONCE 05/24/19 11:46 05/24/19 11:47 DC Fentanyl Citrate (Fentanyl 2ml Vial) 100 mcg STK-MED ONCE 05/24/19 11:34 05/24/19 11:34 DC Hydromorphone HCl (Dilaudid) 0.5 mg PRN Q10MIN PRN 05/24/19 07:00 05/24/19 20:00 DC Insulin Glargine (Lantus Syringe) 45 unit QHS 05/22/19 21:00 05/29/19 20:52 Insulin Human Lispro (HumaLOG) 0-7 UNITS TIDACHC 05/22/19 21:00 05/29/19 17:47 Lactobacillus Rhamnosus (Culturelle) 1 cap BID 05/23/19 21:00 05/29/19 20:52 Lidocaine HCl (Lidocaine Pf 2% Vial) 5 ml STK-MED ONCE 05/24/19 11:41 05/24/19 11:41 DC Lidocaine HCl (Xylocaine-Mpf 1% 2ml Vial) 2 ml PRN 1X PRN 05/24/19 07:00 05/24/19 20:00 DC Meropenem 500 mg/ Sodium Chloride 50 ml @ 100 mls/hr Q6HRS 05/28/19 12:00 05/30/19 05:46 Morphine Sulfate (Morphine Sulfate) 1 mg PRN Q10MIN PRN 05/24/19 07:00 05/24/19 20:00 DC Multivitamins (Thera M Plus) 1 tab DAILY 05/23/19 14:00 05/29/19 08:28 Nicotine (Nicoderm Cq 14mg) 1 patch PRN DAILY PRN 05/29/19 12:30 05/29/19 15:26 Ondansetron HCl (Zofran) 4 mg STK-MED ONCE 05/24/19 11:41 05/24/19 11:41 DC Phenylephrine HCl (PHENYLEPHRINE in 0.9% NACL PF) 1 mg STK-MED ONCE 05/24/19 11:28 05/24/19 11:28 DC Potassium Chloride (Klor-Con) 20 meq DAILYWBKFT 05/24/19 08:00 05/29/19 08:28 Prochlorperazine Edisylate (Compazine) 5 mg PACU PRN PRN 05/24/19 07:00 05/24/19 20:00 DC Propofol 20 ml @ As Directed STK-MED ONCE 05/24/19 11:41 05/24/19 11:41 DC Ringer's Solution 1,000 ml @ 30 mls/hr Q24H 05/24/19 07:00 05/24/19 18:59 DC Sevoflurane (Ultane) 60 ml STK-MED ONCE 05/24/19 11:41 05/24/19 11:42 DC Sodium Chloride 1,000 ml @ 1,000 mls/hr 1X ONCE 05/22/19 17:00 05/22/19 17:59 DC 05/22/19 17:18 Tramadol HCl (Ultram) 50 mg PRN Q6HRS PRN 05/22/19 23:00 05/26/19 00:59 Vancomycin HCl (Vanco Per Pharmacy) 1 each PRN DAILY PRN 05/22/19 19:45 05/28/19 10:32 DC 05/27/19 15:29 Vancomycin HCl (Vancomycin Random Level) 1 each 1X ONCE 05/26/19 10:00 05/26/19 10:01 DC 05/26/19 10:48 Vancomycin HCl (Vancomycin Trough Level) 1 each 1X ONCE 05/25/19 21:30 05/25/19 21:31 DC 05/25/19 21:55 Vancomycin HCl 1.75 gm/Sodium Chloride 500 ml @ 250 mls/hr Q12H 05/24/19 22:00 05/28/19 10:29 DC 05/27/19 21:42 Vancomycin HCl 2 gm/Sodium Chloride 500 ml @ 250 mls/hr 1X ONCE 05/22/19 17:15 05/22/19 19:14 DC 05/22/19 18:32 Labs: Lab Laboratory Tests Test 05/29/19 11:54 05/29/19 16:48 05/29/19 20:43 05/30/19 05:05 Glucose (Fingerstick) 127 mg/dL (70-99) 159 mg/dL (70-99) 158 mg/dL (70-99) White Blood Count 7.6 x10^3/uL (4.0-11.0) Red Blood Count 4.38 x10^6/uL (4.30-5.70) Hemoglobin 13.6 g/dL (13.0-17.5) Hematocrit 38.0 % (39.0-53.0) Mean Corpuscular Volume 87 fL (79-100) Mean Corpuscular Hemoglobin 31 pg (25-35) Mean Corpuscular Hemoglobin Concent 36 g/dL (31-37) Red Cell Distribution Width 14.8 % (11.5-14.5) Platelet Count 237 x10^3/uL (140-400) Neutrophils (%) (Auto) 59 % (31-73) Lymphocytes (%) (Auto) 29 % (24-48) Monocytes (%) (Auto) 10 % (0-9) Eosinophils (%) (Auto) 2 % (0-3) Basophils (%) (Auto) 1 % (0-3) Neutrophils # (Auto) 4.5 x10^3/uL (1.8-7.7) Lymphocytes # (Auto) 2.2 x10^3/uL (1.0-4.8) Monocytes # (Auto) 0.7 x10^3/uL (0.0-1.1) Eosinophils # (Auto) 0.1 x10^3/uL (0.0-0.7) Basophils # (Auto) 0.0 x10^3/uL (0.0-0.2) Prothrombin Time 14.7 SEC (11.7-14.0) Prothromb Time International Ratio 1.2 (0.8-1.1) Sodium Level 140 mmol/L (136-145) Potassium Level 3.8 mmol/L (3.5-5.1) Chloride Level 104 mmol/L (98-107) Carbon Dioxide Level 30 mmol/L (21-32) Anion Gap 6 (6-14) Blood Urea Nitrogen 16 mg/dL (8-26) Creatinine 0.7 mg/dL (0.7-1.3) Estimated GFR (Cockcroft-Gault) 115.0 Glucose Level 95 mg/dL (70-99) Calcium Level 9.5 mg/dL (8.5-10.1) Test 05/30/19 07:24 Glucose (Fingerstick) 105 mg/dL (70-99) Micro RUN DATE: 05/30/19 PAGE 1 RUN TIME: 0651 [facility] [address] [place] [address] Gregory Hunter M.D., [employer] Integration PATIENT: JAKOB PIZANO Donnie ACCT: [id number] LOC: [address] [place] [address] U: [id number] AGE/SX: 59/M ROOM: 406 RE05/22/[address]: JAKOB ROJAS MD : 1960 BED: 1 DIS: STATUS: ADM IN TLOC: SPEC #: [id number] RADHA: 05/24/19 STATUS: RES REQ #: [id number] RECD: 05/25/[address]: JAKOB ROJAS MD SOURCE: FOOT ENTR: 05/25/[address]: MATEUSZ HENDERSON II, MD SPDESC: LEFT UNKNOWN PCP NAME ORDERED: ROSARIO/MEHRAN/TSERING COMMENTS: SWAB Procedure Result ANAEROBIC-AEROBIC CULTURE Preliminary Preliminary report Called to Daisy Peguero 05/30/19 0644 by Gunnar Avendaño ANAEROBIC RES 1 Preliminary Comment No anaerobes recovered in 48 hours. AEROBIC CULT Final Preliminary report Final report AEROBIC RES 1 Final Gram negative rods Escherichia coli 4+ 4+ Multi-Drug Resistant Organism Susceptibility profile is consistent with a probable ESBL. ANTIMICROBIAL SUSCEPTIBILITY Final Comment S = Susceptible; I = Intermediate; R = Resistant P = Positive; N = Negative MICS are expressed in micrograms per mL Antibiotic RSLT#1 RSLT#2 RSLT#3 RSLT#4 Amikacin S =8 Amoxicillin/Clavulanic Acid R>=32 Ampicillin R>=32 Ampicillin/Sulbactam R>=32 Cefazolin R>=64 Cefepime R>=32 Cefotaxime R>=64 Ceftazidime R =16 Ceftriaxone R>=64 CONTINUED ON NEXT PAGE RUN DATE: 05/30/19 PAGE 2 RUN TIME: 650 [facility] [address] [place] [address] Gregory Hunter M.D., [employer] SPEC: [id number] PATIENT: PHILIPDARIENJAKOB Fields [id number] (Continued) Procedure Result ANTIMICROBIAL SUSCEPTIBILITY Final (continued) Cefuroxime R>=64 Ciprofloxacin R>=4 Ertapenem S<=0.12 Gentamicin R>=16 Imipenem S<=0.25 Levofloxacin R>=8 Meropenem S<=0.25 Piperacillin/Tazobactam S =8 Tetracycline R>=16 Tigecycline S<=0.5 Tobramycin R>=16 Trimethoprim/Sulfa S<=20 GRAM STAIN Final Final report GRAM STAIN RES 1 Final Comment No white blood cells seen. GRAM STAIN RES 2 Final Comment Few gram negative rods. Performed at: - [facility] [id number] [address], [place], [place] [id number] Railroad Passenger Agent: JULES Fay MD, Phone: [phone] RUN DATE: 05/27/19 PAGE 1 RUN TIME: 5291 [facility] [address] [place] [address] Gregory Hunter M.D., [employer] Integration PATIENT: JAKOB PIZANO ACCT: [id number] LOC: [address] [place] [address] U: [id number] AGE/SX: 59/M ROOM: 406 RE05/22/[address]: JAKOB ROJAS MD : 1960 BED: 1 DIS: STATUS: ADM IN TLOC: SPEC #: [id number] RADHA: 05/22/19 STATUS: COMP REQ #: [id number] RECD: 05/22/[address]: CECY GUO MD SOURCE: BLOOD ENTR: 05/24/[address]: UNKNOWN PCP NAME SPDESC: ORDERED: BLD CULT - LC Procedure Result - BLOOD CULTURE LC Final Preliminary report Final report BLD CULT RESULT 1 Final Comment Coagulase negative Staphylococcus species. Performed at: [address], [place] [id number] Railroad Passenger Agent: JULES Fay MD, Phone: [phone] Staphylococcus epidermidis Based on resistance to oxacillin this isolate would be resistant to all currently available beta-lactam antimicrobial agents, with the exception of the newer cephalosporins with anti-MRSA activity, such as Ceftaroline ANTIMICROBIAL SUSCEPTIBILITY Final Comment S = Susceptible; I = Intermediate; R = Resistant P = Positive; N = Negative MICS are expressed in micrograms per mL Antibiotic RSLT#1 RSLT#2 RSLT#3 RSLT#4 Ciprofloxacin R>=8 Clindamycin R>=8 Erythromycin R>=8 Gentamicin S<=0.5 Levofloxacin R>=8 Linezolid S =1 Oxacillin R>=4 Penicillin R>=0.5 Quinupristin/Dalfopristin S<=0.25 Rifampin S<=0.5 Tetracycline S =2 Trimethoprim/Sulfa R =80 Vancomycin S =1 Performed at: [address], [place] [id number] CONTINUED ON NEXT PAGE RUN DATE: 05/27/19 PAGE 2 RUN TIME: 1710 [facility] [address] [place] [address] Gregory Hunter M.D., V[employer] Integration SPEC: [id number] PATIENT: JAKOB PIZANO [id number] (Continued) Procedure Result ANTIMICROBIAL SUSCEPTIBILITY Final (continued) Railroad Passenger Agent: JULES Fay MD, Phone: [phone] RUN DATE: 05/29/19 PAGE 1 RUN TIME: 814 [facility] [address] [place] [address] Gregory Hunter M.D., [employer] Integration PATIENT: JAKOB PIZANO ACCT: [id number] LOC: [address] [place] [address] U: [id number] AGE/SX: 59/M ROOM: 406 RE05/22/[address]: JAKOB ROJAS MD : 1960 BED: 1 DIS: STATUS: ADM IN TLOC: ----- ------- SPEC #: [id number] RADHA: 05/24/19 STATUS: RES REQ #: [id number] RECD: 05/25/[address]: JAKOB ROJAS MD SOURCE: TISSUE ENTR: 05/25/19 [facility] DR: MATEUSZ HENDERSON II, MD SPDESC: MASS UNKNOWN PCP NAME ORDERED: ANAER/AEROB/GS COMMENTS: TISSUE FROM LEFT FOOT Procedure Result ANAEROBIC-AEROBIC CULTURE Preliminary Preliminary report ANAEROBIC RES 1 Preliminary Comment No anaerobes recovered in 48 hours. AEROBIC CULT Final Preliminary report Final report AEROBIC RES 1 Final Gram negative rods Escherichia coli 4+ 4+ Multi-Drug Resistant Organism Susceptibility profile is consistent with a probable ESBL. ANTIMICROBIAL SUSCEPTIBILITY Final Comment S = Susceptible; I = Intermediate; R = Resistant P = Positive; N = Negative MICS are expressed in micrograms per mL Antibiotic RSLT#1 RSLT#2 RSLT#3 RSLT#4 Amikacin S =8 Amoxicillin/Clavulanic Acid R>=32 Ampicillin R>=32 Ampicillin/Sulbactam R>=32 Cefazolin R>=64 Cefepime S =8 Cefotaxime R>=64 Ceftazidime R =16 Ceftriaxone R>=64 Cefuroxime R>=64 CONTINUED ON NEXT PAGE RUN DATE: 05/29/19 PAGE 2 RUN TIME: 814 [facility] [address] [place] [address] Gregory Hunter M.D., [employer] Integration SPEC: [id number] PATIENT: JAKOB PIZANO [id number] (Continued) Procedure Result -- ANTIMICROBIAL SUSCEPTIBILITY Final (continued) Ciprofloxacin R>=4 Ertapenem S<=0.12 Gentamicin R>=16 Imipenem S<=1 Levofloxacin R>=8 Meropenem S<=0.25 Piperacillin/Tazobactam S =8 Tetracycline R>=16 Tigecycline S<=0.5 Tobramycin R>=16 Trimethoprim/Sulfa R>=320 GRAM STAIN Final Final report GRAM STAIN RES 1 Final Comment No white blood cells seen. GRAM STAIN RES 2 Final Comment Rare gram negative rods. Performed at: [facility] [address], [place], [place] [id number] Railroad Passenger Agent: JULES Fay MD, Phone: [phone] Objective: Assessment: Diabetic foot ulcer, chronic with infection, 05/24/2019 S/P irrigation and debridement, excisional, skin and subcutaneous tissue left foot wound application of wound VAC to wound less than 25 cm� removal left fifth toenail "Findings: Near complete a avulsion of the fifth toenail 3 punctate wounds dorsal medial distal first metatarsal connected to plantar foot wound, approximately a square centimeter at the plantar wound. There was some gross purulence encountered during surgery as well." Cultures growing 2 strains of MDRO E coli's. Coagulase-negative staph bacteremia 05/22/2019, 1 out of 4 bottles, likely contaminant. Repeat blood cultures negative from 05/24/2019. The patient does not have any prosthesis. Left lower extremity cellulitis. Nausea, vomiting, likely from sepsis, resolved. Uncontrolled diabetes mellitus. Plan: Plan of Care continue Merrem when ready for dc transition to Invanz 1 gm IV q daily SW to assist for discharge Invanz,script in chart Duration 3-4 weeks q mon cbc/bun/creat/esr/lfts script in chart Mid line Elevate left lower extremity. Wound /vac care per Orthopedics. Optimal edema control. Optimal diabetes control. compliance with abx discussed Continue supportive care. Discussed with RN. PABLO MEDINA MD May 30, 2019 08:11
[2019-05-30] MEDS: POTASSIUM CHLORIDE 20 MEQ TABLET.ER. PO SCH (08:29)
[2019-05-30] MEDS: MULTIVITAMIN with MINERAL TABLET. PO SCH (08:29)
[2019-05-30] MEDS: LACTOBACILLUS RHAMNOSUS GG 1 CAPSULE. PO SCH (08:29)
[2019-05-30 11:00] VITALS: BP 109/70
--- NOTE | 2019-05-30 13:03 | NUR ---
SS following up with discharge planning. SS spoke with Shira in outpatient, [phone]; fax [phone]. Pt discharging today. Pt will come to the ER for outpatient registration on 05/31/2019 between 0730 and 0800 and will then go to outpatient for first IV infusion. SS discussed with pt and pt agreeable and reported that he does have transportation. Pt's RN notified.
--- NOTE | 2019-05-30 13:15 | NUR ---
Allergies and reactions NKDA INR 1.2 BUN 16 Cr 0.7 Platelets 237 Blood culture done Yes blood culture results 05/24 Neg, 05/22 Gram + Cocci in clusters Order Verified Yes Consent signed Yes Previous Midline placement No Past Medical/Surgical history and current diagnosis reviewed Yes Patient Medical /Surgical History Related to PICC line placement Diabetes Infectious Disease consult Special considerations for PICC line placement Using crutches Midline placement indication configuration engineer antibiotic usage, Zeina Jordan RN, PICC Nurse Addendum: 05/30/19 at 1409 by ZEINA JORDAN RN Amended: Links added.
--- NOTE | 2019-05-30 13:45 | NUR ---
Procedure: Following complete explanation of the PICC procedure including the indications, risks, and potential complications, informed consent was obtained. The possibility for infection was discussed along with signs, symptoms, and prevention. All the questions were answered. Written and verbal patient education was provided. Hand hygiene performed. Standardized central line checklist was utilized. The patient was placed in the supine position, the arm was prepped with chlorhexidine and patient draped with maximum sterile barrier. 2 mL 1% lidocaine was infiltrated into the skin to provide local anesthesia. A thorough assessment of Right upper extremity completed. Using real-time ultrasound guidance and standardized micro puncture set, the Basilic vein was punctured and a peel away sheath was placed using the modified Seldinger technique. The catheter was secured using a securement device and an antimicrobial patch was applied directly on the insertion site followed by a transparent dressing. Port withdrew blood and flushed without resistance. Patient tolerated the procedure without apparent complication(s). Single Lumen Power Midline placement successful and uncomplicated. Tip located in the Right Axilla Complications: None Catheter trimmed to 17CM and inserted to the hub. Addendum: 05/30/19 at 1413 by BHAVESH CHRISTIANSON RN Amended: Links added.
--- NOTE | 2019-05-30 14:49 | NUR ---
Wound Care: DC wound photograph and measurements obtained (see detailed assessment). Home wound vac education provided by Josefa LARSEN. Rental consent signed by pt. Nelly AG packed in tunnel, and 2 pieces black foam applied into dorsal, and plantar openings. Ostomy ring to periwound, and bridged to L anterior lower leg. No other open areas noted on head to toe inspection. Educated on necessity of using half shoe. Will follow up in outpatient on Tuesdays and Fridays for vac changes, and daily for IV ABT infusions.
--- NOTE | 2019-05-30 21:52 | DS ---
DATE OF DISCHARGE: 05/30/2019 ADMISSION DIAGNOSES: 1. Diabetic foot lesion with left lower extremity abscess. 2. Left greater toe diabetic lesion. 3. Hypokalemia. 4. Acute kidney injury. 5. Hypertension. 6. Tobacco abuse. DISCHARGE DIAGNOSES: 1. Postop day #6, irrigation and debridement, excisional skin and subcutaneous tissue, left foot wound. 2. Application of wound VAC. 3. Removal of left fifth toenail. CONSULTS: Dr. Wilson and Dr. Price. HOSPITAL COURSE: The patient is a pleasant middle-aged male, who presented with diabetic foot lesions. He was admitted. He was taken to surgery with the above-mentioned procedures. He has grown multiple resistant organism. Infectious Disease has been following. The plan is to get him home with IV antibiotics and he is going to be coming in for the IV antibiotics as I do not think he has insurance. I did see him and examined him today. Heart tones are normal. Lungs are clear. The wounds look clean. We plan to discharge with close outpatient followup. DISPOSITION: Home. ACTIVITY: As tolerated. DIET: Low sodium. MEDICATIONS: IV Invanz 1 g IV every day in our outpatient clinic per Infectious Disease recommendations for 3-4 weeks. TOTAL TIME: 32 minutes. MALACHI STUART DO DR: KINJAL/nikki JOB#: [id number] / [id number]
[2019-06-02] MEDS ORDERED: ACET325T9 PO (13:51)
[2019-06-02] MEDS ORDERED: OMEP20CA10 PO (13:51)
== END 2019-05-30 16:30 | disposition home or self-care (01) | DRG 854 ==
LOC: ER 16:09 → 4 NORTH 16:57
PROVIDERS: ADMIT Internal Medicine; ATTEND Internal Medicine
PROC: 0JBR0ZZ Excision of Left Foot Subcutaneous Tissue and Fascia, Open Approach (ICD-10-PCS; principal; 2019-05-24 11:15)
PROC: 02H633Z Insertion of Infusion Device into Right Atrium, Percutaneous Approach (ICD-10-PCS; 2019-05-30)
PROC: B244ZZZ Ultrasonography of Right Heart (ICD-10-PCS; 2019-05-30)
DX: A41.9 Sepsis, unspecified organism (principal); L02.416 Cutaneous abscess of left lower limb; L03.116 Cellulitis of left lower limb; N17.9 Acute kidney failure, unspecified; E11.621 Type 2 diabetes mellitus with foot ulcer; E11.622 Type 2 diabetes mellitus with other skin ulcer; E11.65 Type 2 diabetes mellitus with hyperglycemia; E78.5 Hyperlipidemia, unspecified; E87.6 Hypokalemia; F17.210 Nicotine dependence, cigarettes, uncomplicated; I10 Essential (primary) hypertension; I25.10 Atherosclerotic heart disease of native coronary artery without angina pectoris; L97.529 Non-pressure chronic ulcer of other part of left foot with unspecified severity; S91.205A Unspecified open wound of left lesser toe(s) with damage to nail, initial encounter; Z95.5 Presence of coronary angioplasty implant and graft; Z83.3 Family history of diabetes mellitus
CPT/HCPCS: 36415; 36569; 73630; 80048; 80053; 80202; 81001; 82565; 82962; 83605; 83690; 84484; 84520; 85025; 85610; 85651; 86140; 87040; 87071; 87075; 87077; 87205; 93926; 93971; 96361; 96365; 96368; 96375; A7015; J0171; J0690; J1650; J1815; J2001; J2185; J2270; J2370; J2405; J2704; J3010; J3370; J7030; J7040; J7120; 97110; 97116; 97530; 97535; 99285-25; A4461; G0378

== ENCOUNTER → 2019-12-31 | Outpatient (CLI) | payer OTHER ==
[2019-06-28 07:51] VITALS: BP 148/78
[~2019-12-31] MED LIST changes: +ACET325T9 PO; +ATORVASTATIN CA80 MG PO; +EMPA10TA PO; +FAMO20TA5 PO; +FURO40TA4 PO; +GABA600T7 PO; +INSU100I13 SQ; +LINE600T12 PO; +METF10007 PO; +OMEP20CA16 PO; +ONDA4TAB7 PO; +TADA5TAB PO
--- NOTE | 2019-12-31 13:04 | KCIC ---
EXAM: Left shoulder, 3 views. HISTORY: Chronic pain. COMPARISON: None. FINDINGS: 3 views of the left shoulder obtained. There is no fracture, dislocation or subluxation. There is moderate glenohumeral and mild acromioclavicular spurring. There is decreased subacromial space which is likely projectional or due to chronic rotator cuff pathology. There is an incidental calcified granuloma within the left upper lobe. IMPRESSION: 1. 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 2. No acute osseous finding. Electronically signed by: Pham Rosenbaum MD (12/31/2019 1:01 PM) [id number]
== END | disposition home or self-care (01) ==
LOC: KCIC 12:30
PROVIDERS: ATTEND Family Medicine
DX: M19.012 Primary osteoarthritis, left shoulder (principal); J84.10 Pulmonary fibrosis, unspecified
CPT/HCPCS: 73030

== ENCOUNTER → 2020-03-05 | Outpatient (CLI) | payer OTHER ==
[2019-06-28 07:51] VITALS: BP 148/78
--- NOTE | 2020-03-05 11:45 | CARD ---
MR#: [id number] Date of Study: 03/05/2020 Ordering Physician: CLAIRE BRADLEY, Referring Physician: CLAIRE BRADLEY, Tech: Jami Cassidy APPROVED REPORT EXAM: Two-dimensional and M-mode echocardiogram with Doppler and color Doppler. Other Information Quality : AverageHR: 77bpm INDICATION Cardiomyopathy RISK FACTORS Hypertension Hyperlipidemia Diabetes Smoking 2D DIMENSIONS RVDd3.8 (2.9-3.5cm)Left Atrium(2D)4.5 (1.6-4.0cm) IVSd1.0 (0.7-1.1cm)Aortic Root(2D)3.6 (2.0-3.7cm) LVDd5.7 (3.9-5.9cm)PWd1.5 (0.7-1.1cm) LVDs3.3 (2.5-4.0cm)FS (%) 41.2 % SV112.1 mlLVEF(%)71.3 (>50%) Aortic Valve AoV Peak Jeff.154.5cm/sAoV VTI33.8cm AO Peak GR.9.5mmHgLVOT VTI 21.57cm AO Mean GR.6mmHgAI P 1/2 [id number] Mitral Valve MV E Qsfvrjrd953.0cm/sMV E Peak Gr.3mmHg MV DECEL [id number] A Nldymmzy04.9cm/s MV E Mean Gr.1mmHgE/A Ratio1.4 TDI Lateral E' P. V8.82cm/sMedial E' P. V7.40cm/s E/Lateral E'11.7E/Medial E'13.9 Tricuspid Valve TR P. Mrzuavgm884hv/sRAP [id number] TR Peak Gr.34jzRbNIGK25qzAr Pulmonary Vein S1 Sqdhjpqs29.0cm/sS2 Mlfxtvvc87.01cm/s D2 Rurgfehh29.0cm/sPVa [id number] LEFT VENTRICLE The left ventricle is normal size. There is mild to moderate concentric left ventricular hypertrophy. Base to mid inferior, posterior and lateral wall hypokinesis. The ejection fraction is estimated at 50-55%. Transmitral Doppler flow pattern is Grade II-pseudonormal filling dynamics. RIGHT VENTRICLE The right ventricle is normal size. There is normal right ventricular wall thickness. The right ventr icular systolic function is normal. ATRIA The left atrium size is normal. The right atrium size is normal. The interatrial septum is intact wit h no evidence for an atrial septal defect or patent foramen ovale as noted on 2-D or Doppler imaging. AORTIC VALVE The aortic valve is calcified but opens well. Doppler and Color Flow revealed trace to mild aortic re gurgitation. There is no significant aortic valvular stenosis. MITRAL VALVE The mitral valve is normal in structure and function. There is no evidence of mitral valve prolapse. There is no mitral valve stenosis. Doppler and Color-flow revealed trace mitral regurgitation. TRICUSPID VALVE The tricuspid valve is normal in structure and function. Doppler and Color Flow revealed trace tricus pid regurgitation with an estimated PAP of 33 mmHg. There is no tricuspid valve stenosis. PULMONIC VALVE The pulmonic valve is not well visualized. Doppler and Color Flow revealed no pulmonic valvular regur gitation. GREAT VESSELS The aortic root is normal in size. The IVC is normal in size and collapses >50% with inspiration. PERICARDIAL EFFUSION There is no evidence of significant pericardial effusion. Critical Notification Critical Value: No <Conclusion> Base to mid inferior, posterior and lateral wall hypokinesis. The ejection fraction is estimated at 50-55%. Transmitral Doppler flow pattern is Grade II-pseudonormal filling dynamics. Trace to mild aortic regurgitation. Trace mitral regurgitation. Trace tricuspid regurgitation with an estimated PAP of 33 mmHg. There is no evidence of significant pericardial effusion. Signed by : Kiet Olmstead, Electronically Approved : 03/05/2020 11:45:32
== END | disposition home or self-care (01) ==
LOC: ECHO 08:51
PROVIDERS: ATTEND Internal Medicine Cardiovascular Disease
DX: I06.1 Rheumatic aortic insufficiency (principal)
CPT/HCPCS: 93306